=== PATIENT | male | born 1960 | race Caucasian/White ===

== ENCOUNTER 2025-01-01 12:56 | Day surgery (SDC) | payer MEDICARE ==
[2024-12-31 10:45] VITALS: BMI 21.1
[~2025-01-01 12:56] MED LIST: DEXAMETHASONE SOD PHOSPHATE 4 MG/ML 1 ML VIAL IV ONE; HYDROmorphone 0.5 MG/0.5 ML SYRINGE IVP PRN; LACTATED RINGERS 1,000 ML IV SCH; LIDOCAINE 1% (10MG/ML) FOR IV START INTRADERMA PRN; MIDAZOLAM 2 MG/2 ML VIAL IV PRN; ONDANSETRON 4 MG/2 ML VIAL IVP ONE; fentaNYL (PF) 50 MCG/ML 2 ML AMP IVP PRN
--- NOTE | 2025-01-01 13:37 | CT ---
EXAMINATION TYPE: CT Chest wo ION protocol DATE OF EXAM: 01/01/2025 COMPARISON: PET CT fusion dated 12/11/2024 CLINICAL INDICATION: Male, 64 years old with history of ion bronchoscopy; PHH, pre bronchial navigati on TECHNIQUE: CT scan of the thorax is performed without IV contrast. CT DLP: 757.[address] CTDI: mGy Automated exposure control for dose reduction was used. FINDINGS: There is a 2.4 x 1.8 cm spiculated mass in the left upper lobe which showed abnormal uptake on the pr ior PET scan. There is a 1.2 cm nodule in the left lower lobe which did not show increased uptake on the prior exam. It does have a spiculated margin. There is a 5.6 mm groundglass nodule in the right upper lobe laterally. There are moderate emphysematous changes. There is no airspace consolidation. There is no pleural effusion or pneumothorax. There is no mediastinal or axillary adenopathy. Possibility of right hilar adenopathy cannot be exclu ded with this technique. Limited scanning through the upper abdomen reveals no gross abnormality. There is postsurgical change of fusion in the lower thoracic and upper lumbar spine. There are no foc al osseous lesions. IMPRESSION: 1. 2.4 x 1.8 cm spiculated mass in the left upper lobe highly suspicious for malignancy. Second 1.2 c m nodule in left lower lobe which is not show increased uptake on the prior PET scan dated 12/11/2024 2. No acute cardiopulmonary disease. 3. No axillary or mediastinal adenopathy. Hilar adenopathy cannot be excluded with this technique. 4. No pleural effusion or pneumothorax. [facility], , 01/01/2025 1:35 PM
[2025-01-01] MEDS: LACTATED RINGERS 1,000 ML IV SCH (13:49)
[2025-01-01] MEDS: IV FLUID CONTINUATION 1,000 ML IV ONE (13:50)
[2025-01-01] MEDS ORDERED: fentaNYL (PF) 50 MCG/ML 2 ML AMP ONE (14:10)
[2025-01-01] MEDS ORDERED: GLYCOPYRROLATE 0.2 MG/ML 2 ML VIAL ONE (14:10)
[2025-01-01] MEDS ORDERED: MIDAZOLAM 2 MG/2 ML VIAL ONE (14:10)
[2025-01-01] MEDS ORDERED: SUCCINYLCHOLINE CHLORIDE 200 MG/10 ML VIAL IV ONE (14:10)
[2025-01-01] MEDS ORDERED: ROCURONIUM 10 MG/ML (5 ML VIAL) IV ONE (14:10)
[2025-01-01] MEDS ORDERED: PROPOFOL 10 MG/ML 20 ML VIAL IV ONE (14:10)
[2025-01-01] MEDS ORDERED: NEOSTIGMINE 1 MG/ML 10 ML VIAL ONE (14:10)
[2025-01-01] MEDS ORDERED: LIDOCAINE 1% INJ 10MG/ML (20 ML MDV) ONE (14:10)
[2025-01-01 16:04] VITALS: TEMP 97.1
--- NOTE | 2025-01-01 16:05 | P.PCN ---
Date of Procedure: 01/01/25 Operative Findings: Operative Findings: Preoperative Diagnosis: Left upper lobe pulmonary nodule (2.4x1.8 cm) Postoperative Diagnosis: Left upper lobe pulmonary nodule Mediastinal lymphadenopathy Procedure(s) Performed: Flexible bronchoscopy Robotic-assisted bronchoscopy and addition to radial ultrasound evaluation of the left upper lobe pulmonary mass, 24 mm Robotic-assisted transbronchial needle aspirate, transbronchial biopsies of the left upper lobe pulmonary nodule in addition to a bronchioloalveolar lavage Endobronchial ultrasound TBNA of station 10L and station 7 lymph nodes Anesthesia: BRENDAA Surgeon: Jose Preston Estimated Blood Loss (ml): 0 Pathology: other Condition: stable Disposition: same day Operative Findings: A physical exam was performed. Informed consent was obtained from the patient after explaining all the risks (pneumothorax, life threatening bleeding, infection and adverse effects due to medications), benefits and alternatives to the procedure which the patient appeared to understand and so stated. The patient was connected to the monitoring devices. General anesthesia was induced and the patient was intubated by anesthesia. A final timeout was performed and t he procedure confirmed by the attending staff bronchoscopist. The bronchoscope was inserted and the airway examined. The flexible bronchoscope was removed and the robotic bronchoscope was inserted. Registration was completed. I next guided the robotic bronchoscope using the navigation system into the left upper lobe lingular segment . Once in proper position, the bronchoscope was frozen. The radial EBUS probe was placed through the bronchoscope and confirmed abnormal u/s images vs normal lung. A 23 gauge needle was placed through the working channel and under fluoroscopic guidance, we sampled the area thought to have the mass twice. The samples were evaluated by pathology and rapid on site evaluation was done and the samples were found to be adequate. We then used a cloud biopsy pattern with ultrasound confirmation for 4 additional passes with the needle. U/S evaluation was then used to reconfirm location. Forceps were next introduced through working channel and extended the appropriate distance and 2 transbronchial biopsies were performed using fluoroscopic guidance. The u/s probe was then reinserted to confirm location. When confirmed this process was repeated for a total of 8 transbronchial biopsies. 40 ml of saline was then instilled into the area of the lesion. 10 ml of effluent from the BAL was collected. The aspirate was bloody and ultimately declotted and based on that, the sample was discarded. The robotic bronchoscope was removed and endobronchial ultrasound was inserted. Careful examination of the greatest mediastinal stations showed a 1.2 cm left hilar lymph node, station 10L and 9 mm subcarinal lymph node, station 7. Using a 22-gauge Vizishot needle, transbronchial needle aspirate of station 10L lymph node was done, a total of 5 passes and station 7 was done a total of 3 passes. The rest of the mediastinal stations were free of any pathologic lymphadenopathy. Flex. bronchoscope was inserted and regular suctioning was done. At the completion of the procedure, no residual secretions or bloody material within the airway. The bronchoscope was removed. The patient was extubated. FINDINGS: 1.The airways appeared normal 2 Successful navigation, ultrasonographic identification, and biopsies of left upper lobe pulmonary mass 3.The the radial ultrasound view was concentric RECOMMENDATIONS: Await pathology and cytology results The referring physician will be alerted to the results when available. The patient was advised to follow up with the referring physician with the biopsy results Patient will be called with results.
[2025-01-01 16:32] VITALS: RESP 17
--- NOTE | 2025-01-01 16:51 | XR ---
EXAMINATION TYPE: XR chest 1V DATE OF EXAM: 01/01/2025 4:22 PM COMPARISON: None. CLINICAL INDICATION: Male, 64 years old with history of post bx, TECHNIQUE: XR chest 1V view(s) obtained. FINDINGS: The heart size is normal. The pulmonary vasculature is normal. Streak opacities are within the mid and lower left lung. Correlate for plate atelectasis. Follow-up r ecommended. No pneumothorax is evident. IMPRESSION: 1. Platelike atelectasis left lung. Follow-up recommended 2. No pneumothorax post bronchoscopy [facility], , 01/01/2025 4:49 PM
[2025-01-01 16:58] VITALS: BP 180/97; PULSE 63
--- NOTE | 2025-01-02 05:48 | FL ---
EXAMINATION TYPE: FL bronchoscopy DATE OF EXAM: 01/01/2025 CLINICAL HISTORY: Lung lesion TECHNIQUE: Fluoroscopy. COMPARISON: None. FINDINGS: Fluoroscopic guidance was provided during bronchoscopy procedure performed by Dr. Preston . A total of 59 seconds of fluoroscopic time was utilized during the procedure and 2 spot images was acquired. Images show advancement for tissue sampling into the left lung. TOTAL DAP = 2.0484 Gycm2 IMPRESSION: As Above. [facility], Workstation: [facility], 01/02/2025 5:45 AM
== END 2025-01-01 17:15 | disposition home or self-care (01) ==
LOC: ORWHC2ENDO 12:56
PROVIDERS: ATTEND Internal Medicine Critical Care Medicine
DX: C34.12 Malignant neoplasm of upper lobe, left bronchus or lung (principal); J44.9 Chronic obstructive pulmonary disease, unspecified; R59.0 Localized enlarged lymph nodes; I10 Essential (primary) hypertension; E78.5 Hyperlipidemia, unspecified; M54.50 Low back pain, unspecified; F90.9 Attention-deficit hyperactivity disorder, unspecified type; Z87.891 Personal history of nicotine dependence; Z88.0 Allergy status to penicillin; Z79.51 Long term (current) use of inhaled steroids; Z79.899 Other long term (current) drug therapy
CPT/HCPCS: 88108; 88305; 88173; 87070; 87205; 71045; 71250; 31628; 31629; 31624; 31652; J2250; J0330; J2710; J2003; J3010; J2704; J1596; S2900

== ENCOUNTER → 2025-02-06 | Outpatient (CLI) | payer MEDICARE ==
[2025-02-06 13:55] LABS: INR 0.9 (<1.2); Partial Thromboplastin Time 23.9 sec (22.0-30.0); Prothrombin Time 9.9 sec (10.0-12.5)
[2025-02-06 18:09] LABS: Basophils # (A) 0.06 X 10*3/uL (0.00-0.10); Basophils % (A) 0.7 %; Eosinophils # (A) 0.13 X 10*3/uL (0.04-0.35); Eosinophils % (A) 1.6 %; HCT 44.6 % (39.6-50.0); HGB 14.6 g/dL (13.0-17.0); Lymphocytes # (A) 2.43 X 10*3/uL (0.90-5.00); Lymphocytes % (A) 29.2 %; MCHC 32.7 g/dL (32.0-37.0); MCV 94.7 FL (80.0-97.0); Mean Platelet Volume 9.4 FL (9.5-12.2); Monocytes # (A) 0.61 X 10*3/uL (0.20-1.00); Monocytes % (A) 7.3 %; NRBC Per 100 WBC 0 X 10*3/uL (0.00-0.01); Neutrophils # (A) 5.05 X 10*3/uL (1.80-7.70); Neutrophils % (A) 60.6 %; Platelet Count 501 X 10*3/uL (140-440); RBC 4.71 X 10*6/uL (4.40-5.60); RDW 12.5 % (11.5-14.5); WBC 8.33 X 10*3/uL (4.50-10.00)
[2025-02-06 18:23] LABS: Blood Urea Nitrogen 17.4 mg/dL (9.0-27.0); Carbon Dioxide 29.5 mmol/L (21.6-31.8); Chloride 99 mmol/L (96-109); Glucose 91 mg/dL (70-110); Potassium 4.7 mmol/L (3.5-5.5); Sodium 138 mmol/L (135-145)
[2025-02-06 18:30] LABS: Appearance,Urine Clear (Clear); Bilirubin,Urine Negative (Negative); Blood,Urine Negative (Negative); Color,Urine Yellow (Yellow); Ketones,Urine Negative (Negative); Nitrite,Urine Negative (Negative); Specific Gravity,Urine 1.016 (1.001-1.030); Urobilinogen,Urine 0.2 E.U./DL
[2025-02-06 18:44] LABS: Bacteria,Urine 3+ (None Seen)
== END | disposition home or self-care (01) ==
LOC: LABPAT 12:50
PROVIDERS: ATTEND Thoracic Surgery (Cardiothoracic Vascular Surgery)
DX: Z01.818 Encounter for other preprocedural examination (principal); C34.90 Malignant neoplasm of unspecified part of unspecified bronchus or lung
CPT/HCPCS: 80051; 81001; 82565; 82947; 84520; 85025; 85610; 85730; 86850; 86900; 86901; 87077; 87086; 87186; 93005

== ENCOUNTER 2025-02-12 09:48 | Inpatient (IN) | payer MEDICARE ==
[2025-02-12] MEDS ORDERED: HYDROmorphone 0.5 MG/0.5 ML SYRINGE IVP PRN (10:04)
[2025-02-12] MEDS ORDERED: droPERidol 2.5 MG/ML VIAL IVP PRN (10:04)
[2025-02-12] MEDS ORDERED: LIDOCAINE 1% (10MG/ML) FOR IV START INTRADERMA PRN (10:04)
[2025-02-12] MEDS: IV FLUID CONTINUATION 1,000 ML IV ONE ×2 (10:40)
[2025-02-12] MEDS: ONDANSETRON 4 MG/2 ML VIAL IVP ONE ×2 (10:48→18:15)
[2025-02-12] MEDS: DEXAMETHASONE SOD PHOSPHATE 4 MG/ML 1 ML VIAL IV ONE ×2 (10:48→18:15)
[2025-02-12] MEDS: LACTATED RINGERS 1,000 ML IV SCH ×2 (10:49)
[2025-02-12] MEDS: MIDAZOLAM 2 MG/2 ML VIAL IV ONE (11:08)
[2025-02-12] MEDS ORDERED: fentaNYL (PF) 50 MCG/ML 2 ML AMP ONE (14:46)
[2025-02-12] MEDS ORDERED: NEOSTIGMINE 1 MG/ML 10 ML VIAL ONE (14:46)
[2025-02-12] MEDS ORDERED: HYDROmorphone (PF) 1 MG/ML ONE (14:46)
[2025-02-12] MEDS ORDERED: SODIUM CHLORIDE 0.9% (PF) 10 ML VIAL ONE (14:46)
[2025-02-12] MEDS ORDERED: ROCURONIUM 10 MG/ML (5 ML VIAL) IV ONE (14:46)
[2025-02-12] MEDS ORDERED: DEXAMETHASONE SOD PHOSPHATE 4 MG/ML 1 ML VIAL ONE (14:46)
[2025-02-12] MEDS ORDERED: ROPIVACAINE 5 MG/ML 30 ML VIAL ONE (14:46)
[2025-02-12] MEDS ORDERED: ACETAMINOPHEN IV (For NPO) 1,000 MG/100 ML VIAL ONE (14:46)
[2025-02-12] MEDS ORDERED: KETAMINE HCL IN 0.9 % NACL 50 MG/5 ML SYRINGE ONE (14:46)
[2025-02-12] MEDS ORDERED: LIDOCAINE 4% LTA KIT (4 ML) TOPICAL ONE (14:46)
[2025-02-12] MEDS ORDERED: SUCCINYLCHOLINE CHLORIDE 200 MG/10 ML VIAL IV ONE (14:46)
[2025-02-12] MEDS ORDERED: PROPOFOL 10 MG/ML 20 ML VIAL IV ONE (14:46)
[2025-02-12] MEDS ORDERED: GLYCOPYRROLATE 0.2 MG/ML 2 ML VIAL ONE (14:46)
[2025-02-12] MEDS ORDERED: LIDOCAINE 1% INJ 10MG/ML (20 ML MDV) ONE (14:46)
[2025-02-12] MEDS ORDERED: MIDAZOLAM 2 MG/2 ML VIAL ONE (14:46)
[2025-02-12] MEDS: ceFAZolin 2 GM in DEXTROSE 5% IN WATER 50 ML IVPB PRN (14:51)
[2025-02-12] MEDS ORDERED: NALOXONE 0.4 MG/ML 1 ML VIAL IV PRN (17:37)
--- NOTE | 2025-02-12 18:24 | P.OP ---
Date of Procedure: 02/12/25 Preoperative Diagnosis: Lung CA AYANNA Postoperative Diagnosis: Same Procedure(s) Performed: Video thoracoscopy, left thoracotomy, lysis of pleural adhesions, left upper lobectomy, mediastinal lymph node dissection, cryoablation left intercostal nerves. Implants: 0 Anesthesia: BRENDAA Surgeon: Rajat Umanzor Estimated Blood Loss (ml): 75 Pathology: other (Left upper lobe with frozen section bronchial margin negative; lymph node stations; L5, L6, L8, L10, L11, level 7) Condition: stable Disposition: PACU Indications for Procedure: 64-year-old male with newly discovered biopsy-proven carcinoma left upper lobe. Mediastinal staging with EBUS was negative. PET scan was negative for local or distant metastasis. CT of the head was negative. Patient was referred for surgical resection for clinical stage I adenocarcinoma of the lung. Minimally invasive approach was planned. Operative Findings: I am placing the thoracoscope, was immediately evident that there were diffuse adhesions in the pleural space. Gentle attempts were made to take these down bluntly and they were unsuccessful. Given the extent of the adhesions it was felt most efficacious to open the chest. On opening the chest, there were indeed diffuse adhesions throughout the pleural cavity. These were very dense and general had to be taken down sharply. We were able to completely take down the adhesions within the pleural space. The fissures were also fairly densely adherent. These were taken down partially. There was diffuse anthracotic adenopathy in the hilum and mediastinum. None of this grossly appeared metastatic. There was a approximately 3 cm mass present in the left upper lobe. This was distant from the hilum. There is also distant from the parietal pleura. On completion of the lobectomy, there was no evidence of significant ai r leak. The lung appeared to inflate well. Description of Procedure: Patient was brought to the operating room and placed supine on the operating table. General anesthesia was induced. He was intubated with a double-lumen endotracheal tube. This was positioned with fiberoptic bronchoscopy. There was no evidence of endobronchial lesions. Patient was turned in the right lateral decubitus position. The left chest was sterilely prepped and draped and he was appropriately positioned. Initial incision was made in the ninth interspace in the midaxillary line. On placing the scope dense adhesions were encountered. These did not appear to want a come down bluntly in any shape or form. It was decided to proceed directly to the thoracotomy. Scope was removed. Posterior lateral thoracotomy incision was performed. Latissimus muscle was divided. The serratus muscle was mobilized and retracted anteriorly. Chest was entered in the fifth interspace. There were indeed dense adhesions. These had to be taken down sharply with either scissors or Bovie for the most part. Once we had enough of the lung freed by a 2 P8 retractor was placed. The intercostals were undercut anteriorly and posteriorly to allow better spreading of the ribs. We continued to mobilize the adhesions until we had the lung completely freed. Remarkably we did not have any significant lung tears. If fissures were also adherent. This was taken down partially but was very dense. The inferior pulmonary ligament was mobilized and divided. We began dissection in the hilum. We first dissected out the superior pulmonary vein, encircled it and ligated and divided it with a Endo SABIHA vascular stapler. Carried dissection onto the bronchus and the pulmonary artery identifying the structures and developing them somewhat. Dissection in the hilum was very difficult due to dense adhesions. We now directed our attention posteriorly. We resected some enlarged L8 lymph nodes. We dissected out the L10 lymph nodes from between the mainstem pulmonary bronchus and the pulmonary artery. Dissection was carried onto the pulmonary artery. 3 superior branches were taken down and ligated and divided with multiple firings of Endo SABIHA vascular stapler. Dissection was carried onto the bronchus. Lymph node between the upper lobe and lower lobe bronchus was resected and sent as L11 lymph node. We are able to encircle the upper lobe bronchus and ligated and divided with a Endo SABIHA stapler. We now could visualize multiple branches of the pulmonary artery leading to the lingula. These were encircled and ligated and divided with a single firing of Endo SABIHA vascular stapler. We now completed the fissures with multiple firings of Endo SABIHA thick stapler. Lobectomy specimen was sent for frozen section and returned negative for the bronchial margin. We completed the lymph node dissection with resection of the L5, L6 and level 7 lymph nodes. Cryoablation of the 3rd, 4th, 5th, 6th and 7th intercostal nerves was performed posteriorly with the Endo ice AtriCure cryoprobe. Chest was irrigated with warm water. No bleeding was noted. Lung was inflated under water and no significant air leaks were identified. 28 Irish chest tube was placed through the initial thoracoscopy incision and positioned posterior apically and secured with 0 Ethibond suture. Ribs were reapproximated with #1 Vicryl suture. The muscle layers were closed with 0 Vicryl. Subcutaneous layers were closed with 2-0 Vicryl. Skin was closed with skin clips. Dry sterile dressings were applied and the patient was extubated and transferred to recovery in stable condition.
[2025-02-12] MEDS: HYDROmorphone 0.5 MG/0.5 ML SYRINGE IVP PRN (18:37)
[2025-02-12] MEDS ORDERED: Potassium Replacement Protocol 1 EACH MISC MISCELLANE PRN (18:43)
[2025-02-12] MEDS ORDERED: Magnesium Replacement Protocol 1 EACH MISC MISCELLANE PRN (18:43)
[2025-02-12] MEDS ORDERED: bisacodyL 10 MG SUPP RECTAL PRN (18:43)
--- NOTE | 2025-02-12 19:11 | XR ---
EXAMINATION TYPE: XR chest 1V portable DATE OF EXAM: 02/12/2025 6:54 PM COMPARISON: Chest radiographs from 01/01/2025. CLINICAL INDICATION: Male, 64 years old with history of post lobectomy; [facility] TECHNIQUE: XR chest 1V portable Frontal view of the chest. FINDINGS: Lungs/Pleura: There is no evidence of pleural effusion, focal consolidation, or pneumothorax. Pulmonary vascularity: Unremarkable. Heart/mediastinum: Cardiomediastinal silhouette is unremarkable. Musculoskeletal: No acute osseous pathology. There is fixation hardware in the lower cervical spine. Other findings: Skin cassandra over the left lateral chest wall. Few scattered subcutaneous emphysema f oci of lucency present. Lines/Tubes: Left thoracotomy tube is present with evidence of small pneumothorax. IMPRESSION: Left thoracotomy tube with left pneumothorax. [facility], , 02/12/2025 7:09 PM
[2025-02-12] MEDS: IPRATROPIUM-ALBUTEROL 3 ML NEB IH SCH (19:34)
[2025-02-12] MEDS: BUDESONIDE 0.5 MG/2 ML NEBU INHALATION SCH (19:34)
[2025-02-12] MEDS: ROPIVACAINE 250 MG, HYDROMORPHONE (PF) 5 MG in SODIUM CHLORIDE 0.9% 200 ML EPIDURAL PRN (19:40)
[2025-02-12 19:52] LABS: Glucose,Whole Blood 166 mg/dL (70-110)
[2025-02-12] MEDS: SENNOSIDES 8.6 MG TAB PO SCH (20:26)
[2025-02-12] MEDS: MORPHINE SULFATE ER 30 MG TABLET PO SCH (20:26)
[2025-02-12] MEDS: ZIPRASIDONE 20 MG CAP PO SCH (21:17)
[2025-02-12] MEDS: DEXTROSE 5%-0.45% NACL 1,000 ML IV SCH (21:17)
[2025-02-12] MEDS: MORPHINE SULFATE 4 MG/ML SYRINGE IVP PRN (21:32)
[2025-02-12] MEDS: ONDANSETRON 4 MG/2 ML VIAL IVP PRN (21:32)
[2025-02-12] MEDS: traMADol 50 MG TAB PO PRN (22:37)
[2025-02-12] MEDS: KETOROLAC 15 MG/ML 1 ML VIAL IVP STA (22:37)
[2025-02-13] MEDS ORDERED: HEPARIN SODIUM,PORCINE 5,000 UNIT/ML 1 ML VIAL SQ SCH
[2025-02-13] MEDS: HEPARIN SODIUM,PORCINE 5,000 UNIT/ML 1 ML VIAL SQ SCH (00:20)
[2025-02-13] MEDS: ceFAZolin 2 GM in DEXTROSE 5% IN WATER 50 ML IVPB SCH (00:36)
[2025-02-13 03:35] LABS: Basophils # (A) 0.02 10*3/uL (0.00-0.10); Basophils % (A) 0.1 %; HCT 37.8 % (39.6-50.0); HGB 12.4 g/dL (13.0-17.0); Lymphocytes # (A) 1.31 10*3/uL (0.90-5.00); MCH 31.4 pg (27.0-32.0); MCHC 32.8 g/dL (32.0-37.0); MCV 95.7 fL (80.0-97.0); Mean Platelet Volume 9.4 fL (9.5-12.2); Monocytes # (A) 1.28 10*3/uL (0.20-1.00); Monocytes % (A) 8.8 %; Neutrophils # (A) 11.95 10*3/uL (1.80-7.70); Neutrophils % (A) 81.7 %; Platelet Count 355 10*3/uL (140-440); RBC 3.95 10*6/uL (4.40-5.60); RDW 13.1 % (11.5-14.5); WBC 14.62 10*3/uL (4.50-10.00)
[2025-02-13 05:29] LABS: Glucose,Whole Blood 132 mg/dL (70-110)
[2025-02-13 05:59] LABS: ALT 16 U/L (4-49); AST 25 U/L (17-59); African American GFR (CKD) >90 (>60 ml/min/1.73 sqM); Albumin 3.2 g/dL (3.5-5.0); Alkaline Phosphatase 59 U/L (38-126); Anion Gap 7 mmol/L; Blood Urea Nitrogen 20 mg/dL (9-20); Calcium 8.8 mg/dL (8.4-10.2); Carbon Dioxide 26 mmol/L (22-30); Chloride 98 mmol/L (98-107); Glucose 122 mg/dL (74-99); Non-African American GFR(CKD) >90 (>60 ml/min/1.73 sqM); Potassium 4.5 mmol/L (3.5-5.1); Sodium 131 mmol/L (137-145); Total Bilirubin 0.5 mg/dL (0.2-1.3); Total Protein 5.7 g/dL (6.3-8.2)
[2025-02-13] MEDS: PANTOPRAZOLE 40 MG TABLET PO SCH (06:09)
--- NOTE | 2025-02-13 07:04 | P.ANPRN ---
Procedure Note - Anesthesia - Nerve Block Performed Left Erector Spinae Single Time Out Performed: Yes Date of Procedure: 02/12/25 Procedure Start Time: : Procedure Stop Time: :04 Location of Patient: PreOp Indication: Acute Post-Operative Pain, Requested by Surgeon Sedation Type: Sedate with meaningful contact maintained Preparation: Sterile Prep Position: Sitting Needle Types: Pajunk Needle Gauge: 21 Ultrasound used to visualize needle placement: Yes Ultrasound used to observe medication spread: Yes Blood Aspirated: No Pain Paresthesia on Injection Noted: No Resistance on Injection: Normal Image Stored and Saved: Yes Events: Uneventful and Well Tolerated (Ropivacaine 0.5% 15 cc plus normal saline 10 cc plus dexamethasone 4 mg given at t5 on the left side)
--- NOTE | 2025-02-13 07:06 | P.ANPRN ---
Procedure Note - Anesthesia - Invasive Line Left Arterial Line Time Out Performed: Yes Date of Procedure: 02/12/25 Time of Procedure: 10:55 Location of Patient: PreOp Preparation: Sterile Prep, Sterile Dressing Arterial Line Location: Radial Ultrasound Used: No Purpose - Visualization and Identification of Vasculature: No Image Stored and Saved: No Narrative: Invasive line placement per sterile protocol utilized.
--- NOTE | 2025-02-13 07:08 | P.ANPRN ---
Procedure Note - Anesthesia - Epidural/Spinal Epidural Continuous Time Out Performed: Yes Date of Procedure: 02/12/25 Procedure Start Time: 19:10 Procedure Stop Time: 19:20 Location of Patient: Phase I Indication: Acute Post-Operative Pain, Requested by Surgeon Sedation Type: Sedate with meaningful contact maintained Preparation: Sterile Prep Position: Sitting Catheter: Indwelling Needle Guage: 18 Blood Aspirated: No Pain Paresthesia on Injection Noted: No Events: Other (see comment) (Xylocaine 1.5% plus epi given as a test dose, no adverse side effect noted)
[2025-02-13] MEDS ORDERED: traMADol 50 MG TAB PO PRN (07:09)
--- NOTE | 2025-02-13 07:36 | P.PN ---
Progress Note - Text 02/13/25 721am 64-year-old male status post open thoracotomy. Patient has a thoracic epidural catheter catheter with a solution running at 6 cc an hour. Patient is complaining of a VAS of 4-5. I asked the nurse to increase the rate to 8 cc an hour. He is also getting IV morphine for breakthrough pain
--- NOTE | 2025-02-13 07:51 | XR ---
EXAMINATION TYPE: XR chest 1V DATE OF EXAM: 02/13/2025 5:19 AM COMPARISON: 02/12/2025 CLINICAL INDICATION: Male, 64 years old with history of post lobectomy, pneumothorax TECHNIQUE: XR chest 1V view(s) obtained. FINDINGS: The heart size is normal. The pulmonary vasculature is normal. There is a moderately large left apical pneumothorax, increasing from comparison. Some increased infiltrates in the left lower lung field. Mild atelectasis at the right base. There is a left sided chest tube directed towards the hilum. IMPRESSION: 1. Increasing moderate to large left-sided pneumothorax. 2. Mild bibasilar atelectasis. [facility], , 02/13/2025 7:49 AM
--- NOTE | 2025-02-13 09:01 | P.PN ---
Subjective Progress Note Date: 02/13/25 Principal diagnosis: Lung cancer of the left upper lobe, biopsy proven invasive pulmonary adenocarcinoma with focal micropapillary features. History of hypertension, obstructive sleep apnea without home CPAP use, osteoarthritis, prostate disorder, back and neck surgery on chronic morphine for pain, ADHD, current tobacco dependence (patient states quit in July 2024 but daughter says still smoking), daily marijuana use POD #1 video thoracoscopy, left thoracotomy, lysis of pleural adhesions, left upper lobectomy, mediastinal lymph node dissection, cryoablation left inte rcostal nerves. The patient was seen and examined this morning sitting up in recliner in the intensive care unit in no acute distress although he does state his expected postsurgical pain is not completely controlled despite epidural, tramadol, IV morphine, as well as his home dose of oral morphine. Remains in sinus bradycardia with heart rate in the 50s, hemodynamically stable. Currently on ro om air and able to achieve 2500 mL on incentive spirometry. Left pleural chest tube remains present to continuous wall suction, continuous airleak present. Chest x-ray, labs reviewed. There is noted to be moderate left-sided pneumothorax on chest x-ray, expected given lobectomy. No other new concerns. Objective - Vital Signs Vital signs: Vital Signs Temp 97.5 F L 02/13/25 08:00 Pulse 61 02/13/25 08:00 Resp 16 02/13/25 08:00 BP 127/93 02/13/25 06:00 Pulse Ox 95 02/13/25 08:00 FiO2 Intake & Output 02/12/25 02/13/25 02/13/25 18:59 06:59 18:59 Intake Total 2049 686 76 Output Total 675 1120 110 Balance 1375 -434 -34 Weight 116.2 kg 115.2 kg Intake: IV 2049 686 3 0.9 saline art line 36 3 pressure bag Dextrose 5%-0.45% NaCl 1, 600 000 ml @ 50 mls/hr IV . Q20H [facility], [facility] Rx#:[id number] ceFAZolin 2 gm In 50 Dextrose 5% in Water 50 ml @ 100 mls/hr IVPB ONCE PRN Rx#:[id number] Intake, IV Titration 73 Amount Ropivacaine 250 mg 73 Hydromorphone (Pf) 5 mg In Sodium Chloride 0.9% 200 ml @ Per Protocol EPIDURAL .Q0M PRN Rx#: [id number] Output: Drainage 460 90 Left Chest 460 90 Urine 600 660 20 Estimated Blood Loss 75 Other: Voiding Method Indwelling Catheter ABP, PAP, CO, CI - Last Documented Arterial Blood Pressure 141/66 - Exam CONSTITUTIONAL: Appears somewhat comfortable, cooperative, no acute distress RESPIRATORY: Lungs sounds diminished bilaterally, left greater than right with expiratory wheezes heard on the left. Respirations even, nonlabored. Currently on room air with oxygen saturation 94%. Able to achieve 2500 mL on incentive spirometry. Weak cough. CARDIOVASCULAR: S1, S2 present. Regular rate and rhythm, sinus bradycardia on telemetry. Palpable peripheral pulses bilaterally. No edema present. No calf pain or tenderness noted. SCDs present. GASTROINTESTINAL: Abdomen soft, nontender, nondistended. Active bowel sounds present 4 quadrants. Tolerating diet. GENITOURINARY: Neely present draining clear, yellow urine. Output 30 to 100 mL/h overnight INTEGUMENTARY: Skin is warm and dry with evidence of good perfusion. Thoracic incision well approximated and covered with dry intact dressing. NEUROLOGIC: Cranial nerves II through XII intact MUSKULOSKELETAL: Able to move all extremities, strength equal bilaterally, gait normal PSYCHIATRIC: Alert and oriented to person place and time, appropriate affect, intact judgment and insight INVASIVE LINES AND TUBES: Left pleural chest tubes present and connected to wall suction, continuous leak present, 335 mL serosanguineous drainage overnight, 650 mL since surgery - Allied health notes Allied health notes reviewed: nursing - Labs CBC & Chem 7: 02/13/25 03:16 02/13/25 05:25 Labs: Abnormal Lab Results - Last 24 Hours (Table) 02/12/25 02/13/25 02/13/25 Range/Units 19:50 03:16 05:25 WBC 14.62 H (4.50-10.00) 10*3/uL RBC 3.95 L (4.40-5.60) 10*6/uL Hgb 12.4 L (13.0-17.0) g/dL Hct 37.8 L (39.6-50.0) % MPV 9.4 L (9.5-12.2) fL Immature Gran # 0.06 H (0.00-0.04) 10*3/uL Neutrophils # 11.95 H (1.80-7.70) 10*3/uL Monocytes # 1.28 H (0.20-1.00) 10*3/uL Eosinophils # 0.00 L (0.04-0.35) 10*3/uL Sodium 131 L (137-145) mmol/L Glucose 122 H (74-99) mg/dL POC Glucose (mg/dL) 166 H (70-110) mg/dL Total Protein 5.7 L (6.3-8.2) g/dL Albumin 3.2 L (3.5-5.0) g/dL 02/13/25 Range/Units 05:27 WBC (4.50-10.00) 10*3/uL RBC (4.40-5.60) 10*6/uL Hgb (13.0-17.0) g/dL Hct (39.6-50.0) % MPV (9.5-12.2) fL Immature Gran # (0.00-0.04) 10*3/uL Neutrophils # (1.80-7.70) 10*3/uL Monocytes # (0.20-1.00) 10*3/uL Eosinophils # (0.04-0.35) 10*3/uL Sodium (137-145) mmol/L Glucose (74-99) mg/dL POC Glucose (mg/dL) 132 H (70-110) mg/dL Total Protein (6.3-8.2) g/dL Albumin (3.5-5.0) g/dL - Imaging and Cardiology Chest x-ray: report reviewed, image reviewed Assessment and Plan Assessment: Lung cancer of the left upper lobe, biopsy proven invasive pulmonary adenocarcinoma with focal micropapillary features, status post video thoracoscopy, left thoracotomy, lysis of pleural adhesions, left upper lobectomy, mediastinal lymph node dissection, cryoablation left intercostal nerves. History of hypertension Obstructive sleep apnea without home CPAP use Osteoarthritis Prostate disorder Back and neck surgery on chronic morphine for pain for 18 years ADHD Current tobacco dependence (patient states quit in July 2024 but daughter says still smoking) Daily marijuana use Plan: Continue current medication regimen Encourage incentive spirometry use 10 times every hour while awake, bronchodilators per pulmonology Will monitor daily labs and x-rays, electrolyte replacement per protocol Hep-Lock IV GI/DVT prophylaxis Continue left pleural chest tube to continuous wall suction, monitor for airleak resolution Pain control per current medication regimen, epidural dose increased by anesthesiology, Toradol added Increase activity, ambulate as tolerated Continue Neely catheter while epidural in place Await final pathology More recommendations to follow
[2025-02-13] MEDS: MORPHINE SULFATE ER 60 MG TABLET PO SCH (09:47)
[2025-02-13] MEDS: SENNOSIDES-DOCUSATE SODIUM 1 EACH TAB PO SCH (09:47)
[2025-02-13] MEDS: METOPROLOL SUCCINATE (ER) 50 MG TAB.ER.24H PO SCH (09:47)
[2025-02-13] MEDS: PATIENT'S OWN (Dextroamphetamine/Amphetamine [Adderall] 20 MG Tablet) PO SCH (09:51)
[2025-02-13] MEDS: METOCLOPRAMIDE 5 MG/ML 2 ML VIAL IVP STA (11:50)
[2025-02-13] MEDS: KETOROLAC 15 MG/ML 1 ML VIAL IVP SCH (11:51)
[2025-02-13] MEDS: methocarbamoL 500 MG TAB PO SCH (12:46)
--- NOTE | 2025-02-13 12:47 | P.CNPUL ---
History of Present Illness Consult date: 02/13/25 Requesting physician: Rajat Umanzor Reason for consult: other Chief complaint: Lung CA, status post lobectomy History of present illness: This is a 64-year-old white male, [id number] smoking history, quit smoking in July of 2024, history of chronic back pain and multiple back surgeries, patient was supposed to have cervical spine surgery, prior to the surgery, workup was done including a chest x-ray that showed a left upper lobe nodule. Patient had a CT of the chest and he was found to have a 2.9 x 2.4 cm nodule in the left upper lobe spiculated highly suspicious for bronchogenic carcinoma. There was another 0.9 x 0.7 noncalcified nodule in the left lower lobe. Patient had borderline mediastinal adenopathy but no hypermetabolic activity. Findings were clearly highly suspicious for bronchogenic carcinoma patient had a PET scan, and he underwent robotic Ion bronchoscopy and biopsy, this was done on 01/02/2025, patient was discovered to have atypical cells consistent with non- small cell lung carcinoma. Lymph node aspirations including station 10L and 7 were negative for malignancy. Hence patient was referred to Dr. Umanzor and yesterday the patient underwent Video thoracoscopy, left thoracotomy, lysis of pleural adhesions, left upper lobectomy, mediastinal lymph node dissection, cryoablation left intercostal nerves.. His immediate postoperative course was uneventful patient was admitted to the ICU and I was asked to see him on consultation. I am seeing the patient today in the ICU, he is on room air, does not seem to be in any distress, however he does have abnormal chest x-ray showing fairly large left-sided pneumothorax with chest tube in place and he has air leak. Thoracic surgery is aware of the findings on the chest x-ray and at this point not recommending any further intervention. Labs showed WBC count of 14.6 hemoglobin 12.4 electrolytes are normal renal profile is normal Review of Systems REVIEW OF SYSTEMS: CONSTITUTIONAL: Negative. EYES: Negative. ENT: Negative. CARDIAC: Negative. PULMONARY: As above. GI: Negative. GENITOURINARY: Negative. MUSCULOSKELETAL: Negative. SKIN: Negative. NEUROPSYCH: Negative. ENDOCRINE: Negative. HEMATOLOGIC: Negative. Past Medical History Past Medical History: Cancer, Hypertension, Osteoarthritis (OA), Prostate Disorder, Sleep Apnea/CPAP/BIPAP Additional Past Medical History / Comment(s): doesn't use anything for sleep apnea, new dx. lung cancer History of Any Multi-Drug Resistant Organisms: None Reported Past Surgical History: Back Surgery Additional Past Surgical History / Comment(s): neck x3, lower back fusions- m orphine for pain sice 18 years, cervical fusion in September 2024, bronchoscopy Past Anesthesia/Blood Transfusion Reactions: No Reported Reaction Additional Past Anesthesia/Blood Transfusion Reaction / Comment(s): no blood transfusions Smoking Status: Current every day smoker - Past Family History Mother Family Medical History: Cancer Additional Family Medical History / Comment(s): throat Medications and Allergies Home Medications Medication Instructions Recorded Confirmed Type Dextroamphetamine/Amphetamine 20 mg PO DAILY 12/31/24 02/10/25 History [Adderall] Morphine Sulfate [Jojo] 60 mg PO TID 12/31/24 02/10/25 History Ziprasidone [Geodon] 20 mg PO BID 12/31/24 02/10/25 History Metoprolol Succinate (ER) [Toprol 50 mg PO DAILY 02/10/25 02/10/25 History Xl] Ibuprofen [Motrin] 800 mg PO DIRECTED PRN 02/11/25 02/11/25 History Allergies Allergy/AdvReac Type Severity Reaction Status Date / Time oxytetracycline Allergy Unknown Verified 02/12/25 10:30 [From Terramycin] Penicillins AdvReac Swelling Verified 02/12/25 10:30 Physical Exam Vitals: Vital Signs Temp Pulse Pulse Resp BP BP BP 02/13/25 12:00 58 L 18 02/13/25 11:00 57 L 21 02/13/25 10:00 57 L 17 02/13/25 09:09 58 L 02/13/25 09:01 56 L 02/13/25 09:00 56 L 19 02/13/25 08:00 97.5 F L 61 16 02/13/25 07:00 59 L 18 02/13/25 06:00 56 L 20 127/93 02/13/25 05:00 59 L 19 144/96 02/13/25 04:00 97.8 F 63 18 102/87 02/13/25 03:00 67 18 126/74 02/13/25 02:00 64 17 123/80 02/13/25 01:15 63 19 127/81 02/13/25 01:00 66 16 131/80 02/13/25 00:45 64 13 131/79 02/13/25 00:30 67 21 114/77 02/13/25 00:15 64 16 125/74 02/13/25 00:00 65 18 122/77 02/12/25 23:45 66 16 134/84 02/12/25 23:30 72 14 150/93 02/12/25 23:15 74 13 160/96 02/12/25 23:00 77 14 168/105 02/12/25 22:45 76 15 170/101 02/12/25 22:30 73 13 160/104 02/12/25 22:15 74 13 196/113 02/12/25 22:00 70 15 177/113 02/12/25 21:45 76 18 179/111 02/12/25 21:30 73 17 180/112 02/12/25 21:15 55 L 23 179/103 02/12/25 21:00 65 19 191/103 02/12/25 20:45 69 14 188/102 02/12/25 20:30 66 18 158/83 02/12/25 20:20 53 L 17 158/83 02/12/25 20:10 53 L 13 158/83 02/12/25 20:00 97.8 F 51 L 21 158/83 02/12/25 19:50 24 02/12/25 19:24 47 L 16 140/59 02/12/25 19:09 47 L 16 144/75 02/12/25 18:54 48 L 16 154/66 02/12/25 18:39 47 L 16 148/60 02/12/25 18:24 97.0 F L 49 L 16 143/61 Pulse Ox 02/13/25 12:00 95 02/13/25 11:00 93 L 02/13/25 10:00 96 02/13/25 09:09 02/13/25 09:01 02/13/25 09:00 96 02/13/25 08:00 95 02/13/25 07:00 92 L 02/13/25 06:00 97 02/13/25 05:00 94 L 02/13/25 04:00 95 02/13/25 03:00 95 02/13/25 02:00 89 L 02/13/25 01:15 02/13/25 01:00 02/13/25 00:45 02/13/25 00:30 02/13/25 00:15 02/13/25 00:00 96 02/12/25 23:45 02/12/25 23:30 02/12/25 23:15 02/12/25 23:00 02/12/25 22:45 02/12/25 22:30 02/12/25 22:15 02/12/25 22:00 02/12/25 21:45 92 L 02/12/25 21:30 96 02/12/25 21:15 96 02/12/25 21:00 97 02/12/25 20:45 93 L 02/12/25 20:30 94 L 02/12/25 20:20 94 L 02/12/25 20:10 97 02/12/25 20:00 93 L 02/12/25 19:50 92 L 02/12/25 19:24 94 L 02/12/25 19:09 95 02/12/25 18:54 94 L 02/12/25 18:39 95 02/12/25 18:24 95 Intake and Output 02/12/25 02/13/25 02/13/25 22:59 06:59 14:59 Intake Total 959 527 618 Output Total 660 835 560 Balance 299 -308 58 Intake: IV 959 527 15 0.9 saline art line 9 27 15 pressure bag Dextrose 5%-0.45% NaCl 1, 150 450 000 ml @ 50 mls/hr IV . Q20H ANILA Rx#:[id number] ceFAZolin 2 gm In 50 Dextrose 5% in Water 50 ml @ 100 mls/hr IVPB ONCE PRN Rx#:[id number] Intake, IV Titration 123 Amount Ropivacaine 250 mg 73 Hydromorphone (Pf) 5 mg In Sodium Chloride 0.9% 200 ml @ Per Protocol EPIDURAL .Q0M PRN Rx#: [id number] ceFAZolin 2 gm In 50 Dextrose 5% in Water 50 ml @ 100 mls/hr IVPB Q8H ANILA Rx#:[id number] Oral 480 Output: Drainage 85 375 240 Left Chest 85 375 240 Urine 500 460 320 Estimated Blood Loss 75 Other: Voiding Method Indwelling Catheter Indwelling Catheter Weight 115.2 kg ABP, PAP, CO, CI - Last 8 Hours Arterial Blood Pressure 148/75 Arterial Blood Pressure 150/70 Arterial Blood Pressure 154/68 Arterial Blood Pressure 151/65 Arterial Blood Pressure 141/66 Arterial Blood Pressure 137/67 Arterial Blood Pressure 149/70 CONSTITUTIONAL: 64-year-old white male anxious in no distress Head: Atraumatic, normocephalic Pulmonary: Diminished breath sounds on the left side, chest tube is noted on the left side with a air leak, patient is achieving 2500 mL on incentive spirometry Cardiac: Distant S1-S2, no S3 gallop, no murmur Abdomen: Obese soft nontender no megaly no rebound no guarding Extremities: No clubbing edema or cyanosis Neurologic: Alert oriented x 3 no gross focal deficit Psychiatric: Anxious mood, normal affect normal mental status Invasive lines and tubes, patient has left pleural chest tube present with continuous leak noted, 650 mL serosanguineous drainage since surgery yesterday. Results - Laboratory Findings CBC and BMP: 02/13/25 03:16 02/13/25 05:25 Abnormal lab findings: Abnormal Labs 02/12/25 02/13/25 02/13/25 19:50 03:16 05:25 WBC 14.62 H RBC 3.95 L Hgb 12.4 L Hct 37.8 L MPV 9.4 L Immature Gran # 0.06 H Neutrophils # 11.95 H Monocytes # 1.28 H Eosinophils # 0.00 L Sodium 131 L Glucose 122 H POC Glucose (mg/dL) 166 H Total Protein 5.7 L Albumin 3.2 L 02/13/25 05:27 WBC RBC Hgb Hct MPV Immature Gran # Neutrophils # Monocytes # Eosinophils # Sodium Glucose POC Glucose (mg/dL) 132 H Total Protein Albumin - Diagnostic Findings Chest x-ray: image reviewed (As noted in HPI large left-sided pneumothorax noted with chest tube in place) Assessment and Plan Assessment: Impression: 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, status post left upper lobectomy, left thoracotomy mediastinal lymph node dissection and cryoablation of left intercostal nerves postoperative day #1 Benign essential hypertension Mild COPD Obstructive sleep apnea syndrome Degenerative joint disease Chronic back pain History of ADHD Ex-smoker Recommendation: Continue to monitor in the ICU Continue chest tube to wall suction Continue daily x-rays of the chest Continue bronchodilators Continue pain management Increase activity as tolerated Continue Neely catheter in place for now with epidural catheter in place Will continue to follow Time with Patient: Greater than 30
[2025-02-14 03:54] LABS: HCT 34.7 % (39.6-50.0); HGB 11.4 g/dL (13.0-17.0); MCH 31.3 pg (27.0-32.0); MCHC 32.9 g/dL (32.0-37.0); MCV 95.3 fL (80.0-97.0); Mean Platelet Volume 10.1 fL (9.5-12.2); Platelet Count 298 10*3/uL (140-440); RBC 3.64 10*6/uL (4.40-5.60); RDW 13.2 % (11.5-14.5); WBC 9.99 10*3/uL (4.50-10.00)
[2025-02-14 04:24] LABS: Potassium 4.1 mmol/L (3.5-5.1)
[2025-02-14 04:25] LABS: African American GFR (CKD) >90 (>60 ml/min/1.73 sqM); Anion Gap 5 mmol/L; Blood Urea Nitrogen 20 mg/dL (9-20); Calcium 8.7 mg/dL (8.4-10.2); Carbon Dioxide 26 mmol/L (22-30); Chloride 101 mmol/L (98-107); Glucose 125 mg/dL (74-99); Non-African American GFR(CKD) >90 (>60 ml/min/1.73 sqM); Sodium 132 mmol/L (137-145)
--- NOTE | 2025-02-14 07:48 | P.PN ---
Subjective Progress Note Date: 02/14/25 Principal diagnosis: Lung cancer of the left upper lobe, biopsy proven invasive pulmonary adenocarcinoma with focal micropapillary features. History of hypertension, obstructive sleep apnea without home CPAP use, osteoarthritis, prostate disorder, back and neck surgery on chronic morphine for pain, ADHD, current tobacco dependence (patient states quit in July 2024 but daughter says still smoking), daily marijuana use POD #2 video thoracoscopy, left thoracotomy, lysis of pleural adhesions, left upper lobectomy, mediastinal lymph node dissection, cryoablation left inte rcostal nerves. The patient was seen and examined this morning sitting up in recliner in the intensive care unit in no acute distress. States he feels better than yesterday although still complains of feeling like shoulder is dislocated. Remains in sinus bradycardia to sinus rhythm with heart rate in the high 50s to low 60s, hemodynamically stable. Currently on room air and able to achieve 2500 mL on incentive spirometry. Left pleural chest tube remains present to continuous wall suction, continuous airleak present. Chest x-ray, labs reviewed. There is noted to be moderate left-sided pneumothorax on chest x-ray, expected given lobectomy. He ambulated in the hallway yesterday multiple times without difficulty. No other new concerns. Objective - Vital Signs Vital signs: Vital Signs Temp 97.9 F 02/14/25 04:00 Pulse 60 02/14/25 07:00 Resp 15 02/14/25 07:00 BP 127/93 02/13/25 06:00 Pulse Ox 93 L 02/14/25 07:00 FiO2 Intake & Output 02/13/25 02/14/25 02/14/25 18:59 06:59 18:59 Intake Total 1084.533 336 Output Total 1450 1480 Balance -365.467 -1144 Weight 117.3 kg Intake: IV 33 36 0.9 saline art line 33 36 pressure bag Intake, IV Titration 211.533 Amount Ropivacaine 250 mg 161.533 Hydromorphone (Pf) 5 mg In Sodium Chloride 0.9% 200 ml @ Per Protocol EPIDURAL .Q0M PRN Rx#: [id number] ceFAZolin 2 gm In 50 Dextrose 5% in Water 50 ml @ 100 mls/hr IVPB Q8H ANILA Rx#:[id number] Oral 840 300 Output: Chest Tube Drainage 0 Chest Tube Left 0 Drainage 430 300 Left Chest 430 300 Urine 1020 1180 Other: Voiding Method Indwelling Catheter Indwelling Catheter ABP, PAP, CO, CI - Last Documented Arterial Blood Pressure 114/51 - Exam CONSTITUTIONAL: Appears comfortable, cooperative, no acute distress RESPIRATORY: Lungs sounds diminished bilaterally, left greater than right with expiratory wheezes heard on the left. Respirations even, nonlabored. Currently on room air with oxygen saturation 93%. Able to achieve 2500 mL on incentive spirometry. Weak cough. CARDIOVASCULAR: S1, S2 present. Regular rate and rhythm, sinus bradycardia on telemetry. Palpable peripheral pulses bilaterally. No edema present. No calf pain or tenderness noted. SCDs present. GASTROINTESTINAL: Abdomen soft, nontender, nondistended. Active bowel sounds present 4 quadrants. Tolerating diet. Positive flatus GENITOURINARY: Neely present draining clear, yellow urine. Output 30-100 mL/h overnight, 2200 mL in the last 24 hours INTEGUMENTARY: Skin is warm and dry with evidence of good perfusion. Thoracic incision well approximated and covered with dry intact dressing. NEUROLOGIC: Cranial nerves II through XII intact MUSKULOSKELETAL: Able to move all extremities, strength equal bilaterally, gait normal PSYCHIATRIC: Alert and oriented to person place and time, appropriate affect, intact judgment and insight INVASIVE LINES AND TUBES: Left pleural chest tubes present and connected to wall suction, continuous leak present, 185 mL serosanguineous drainage overnight, 750 mL since surgery - Allied health notes Allied health notes reviewed: nursing - Labs CBC & Chem 7: 02/14/25 03:05 02/14/25 03:05 Labs: Abnormal Lab Results - Last 24 Hours (Table) 02/14/25 02/14/25 Range/Units 03:05 03:05 RBC 3.64 L (4.40-5.60) 10*6/uL Hgb 11.4 L (13.0-17.0) g/dL Hct 34.7 L (39.6-50.0) % Sodium 132 L (137-145) mmol/L Glucose 125 H (74-99) mg/dL - Imaging and Cardiology Chest x-ray: image reviewed Assessment and Plan Assessment: Lung cancer of the left upper lobe, biopsy proven invasive pulmonary adenocarcinoma with focal micropapillary features, status post video thoracoscopy, left thoracotomy, lysis of pleural adhesions, left upper lobectomy, mediastinal lymph node dissection, cryoablation left intercostal nerves. History of hypertension Obstructive sleep apnea without home CPAP use Osteoarthritis Prostate disorder Back and neck surgery on chronic morphine for pain for 18 years ADHD Current tobacco dependence (patient states quit in July 2024 but daughter says still smoking) Daily marijuana use Plan: Continue current medication regimen Encourage incentive spirometry use 10 times every hour while awake, bronchodi lators per pulmonology Will monitor daily labs and x-rays, electrolyte replacement per protocol GI/DVT prophylaxis Left pleural chest tube placed to waterseal, will repeat x-ray in 2 hours, if similar we will leave on waterseal, if increased pneumothorax will place back to suction Pain control per current medication regimen, Toradol and Robaxin added yesterday Increase activity, ambulate as tolerated Continue Neely catheter while epidural in place Await final pathology More recommendations to follow
--- NOTE | 2025-02-14 07:58 | XR ---
EXAMINATION TYPE: XR chest 1V portable DATE OF EXAM: 02/14/2025 4:31 AM COMPARISON: 02/13/2025 CLINICAL INDICATION: Male, 64 years old with history of Post lobectomy, TECHNIQUE: XR chest 1V portable view(s) obtained. FINDINGS: The heart size is normal. The pulmonary vasculature is normal. Left apical pneumothorax evident. Sternotomy wires are present laterally. Left-sided chest tube is pr esent. There is development of a left lower lobe infiltrate. Correlate for atelectasis or pneumonia could be considered. Mild subsegmental atelectasis may be at the right base. IMPRESSION: 1. Slight diminished size of a left apical pneumothorax. 2. Developing infiltrate left infrahilar region. Correlate for atelectasis or pneumonia. [facility], , 02/14/2025 7:55 AM
[2025-02-14] MEDS: IPRATROPIUM-ALBUTEROL 3 ML NEB IH PRN (08:30)
--- NOTE | 2025-02-14 11:05 | XR ---
EXAMINATION TYPE: XR chest 1V portable DATE OF EXAM: 02/14/2025 10:32 AM COMPARISON: None. CLINICAL INDICATION: Male, 64 years old with history of re-eval off suction, TECHNIQUE: XR chest 1V portable view(s) obtained. FINDINGS: The heart size is normal. The pulmonary vasculature is normal. There is improvement of the mild atelectasis at the left lung base. There is persistence of the left apical pneumothorax. Left-sided chest tube remains present. Measuring the size of the pneumothorax, c urrent measurement to the apex is 7.7 cm, earlier exam before suction turned off for 7.1 cm. IMPRESSION: 1. Left apical pneumothorax minimally larger. 2. Improved left basilar atelectasis [facility], , 02/14/2025 11:03 AM
--- NOTE | 2025-02-14 11:40 | P.PN ---
Subjective Progress Note Date: 02/14/25 Principal diagnosis: POD #2 video thoracoscopy, left thoracotomy, lysis of pleural adhesions, left upper lobectomy, mediastinal lymph node dissection, cryoablation left intercostal nerves. This is a 64-year-old white male, [id number] smoking history, quit smoking in July of 2024, history of chronic back pain and multiple back surgeries, patient was supposed to have cervical spine surgery, prior to the surgery, workup was done including a chest x-ray that showed a left upper lobe nodule. Patient had a CT of the chest and he was found to have a 2.9 x 2.4 cm nodule in the left upper lobe spiculated highly suspicious for bronchogenic carcinoma. There was another 0.9 x 0.7 noncalcified nodule in the left lower lobe. Patient had borderline mediastinal adenopathy but no hypermetabolic activity. Findings were clearly highly suspicious for bronchogenic carcinoma patient had a PET scan, and he underwent robotic Ion bronchoscopy and biopsy, this was done on 01/02/2025, patient was discovered to have atypical cells consistent with non- small cell lung carcinoma. Lymph node aspirations including station 10L and 7 were negative for malignancy. Hence patient was referred to Dr. Umanzor and yesterday the patient underwent Video thoracoscopy, left thoracotomy, lysis of pleural adhesions, left upper lobectomy, mediastinal lymph node dissection, cryoablation left intercostal nerves.. His immediate postoperative course was uneventful patient was admitted to the ICU and I was asked to see him on consultation. I am seeing the patient today in the ICU, he is on room air, does not seem to be in any distress, however he does have abnormal chest x-ray showing fairly large left-sided pneumothorax with chest tube in place and he has air leak. Thoracic surgery is aware of the findings on the chest x-ray and at this point not recommending any further intervention. Labs showed WBC count of 14.6 hemoglobin 12.4 electrolytes are normal renal profile is normal Patient was seen today on 02/15/2024, patient remains in the ICU, doing fairly well, not in any distress, no cough no wheezing no chest pain no shortness of breath, continues to have fairly good sized left-sided pneumothorax, achieving 2500 cc on incentive spirometry, continues to have chest tube in place on wall suction today, and he does have airleak, patient has been ambulating in the hallway with out any difficulty. WBC count is 9.9 hemoglobin 11.4 electrolytes are normal renal profile is normal Objective - Vital Signs Vital signs: Vital Signs Temp 97.9 F 02/14/25 08:00 Pulse 63 02/14/25 11:00 Resp 18 02/14/25 11:00 BP 127/93 02/13/25 06:00 Pulse Ox 94 L 02/14/25 11:00 FiO2 Intake & Output 02/13/25 02/14/25 02/14/25 18:59 06:59 18:59 Intake Total 1084.533 336 15 Output Total 1450 1480 385 Balance -365.467 -1144 -370 Weight 117.3 kg Intake: IV 33 36 15 0.9 saline art line 33 36 15 pressure bag Intake, IV Titration 211.533 Amount Ropivacaine 250 mg 161.533 Hydromorphone (Pf) 5 mg In Sodium Chloride 0.9% 200 ml @ Per Protocol EPIDURAL .Q0M PRN Rx#: [id number] ceFAZolin 2 gm In 50 Dextrose 5% in Water 50 ml @ 100 mls/hr IVPB Q8H ANILA Rx#:[id number] Oral 840 300 Output: Chest Tube Drainage 0 55 Chest Tube Left 0 55 Drainage 430 300 Left Chest 430 300 Urine 1020 1180 330 Other: Voiding Method Indwelling Catheter Indwelling Catheter Indwelling Catheter ABP, PAP, CO, CI - Last Documented Arterial Blood Pressure 102/54 - Exam CONSTITUTIONAL: 64-year-old white male anxious in no distress, on room air Head: Atraumatic, normocephalic Pulmonary: Diminished breath sounds on the left side, chest tube is noted on the left side with a air leak, patient is achieving 2500 mL on incentive spirometry Cardiac: Distant S1-S2, no S3 gallop, no murmur Abdomen: Obese soft nontender no megaly no rebound no guarding Extremities: No clubbing edema or cyanosis Neurologic: Alert oriented x 3 no gross focal deficit Psychiatric: Anxious mood, normal affect normal mental status Invasive lines and tubes, patient has left pleural chest tube present with continuous leak noted - Labs CBC & Chem 7: 02/14/25 03:05 02/14/25 03:05 Labs: Abnormal Lab Results - Last 24 Hours (Table) 02/14/25 02/14/25 Range/Units 03:05 03:05 RBC 3.64 L (4.40-5.60) 10*6/uL Hgb 11.4 L (13.0-17.0) g/dL Hct 34.7 L (39.6-50.0) % Sodium 132 L (137-145) mmol/L Glucose 125 H (74-99) mg/dL Assessment and Plan Assessment: Impression: 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, status post left upper lobectomy, left thoracotomy mediastinal lymph node dissection and cryoablation of left intercostal nerves postoperative day #2 Postoperative left-sided pneumothorax, expected Benign essential hypertension Mild COPD Obstructive sleep apnea syndrome Degenerative joint disease Chronic back pain History of ADHD Ex-smoker Recommendation: Continue to monitor in the ICU Continue chest tube Continue daily x-rays of the chest Continue bronchodilators Continue pain management Increase activity as tolerated Continue to ambulate GI and DVT prophylaxis Will continue to follow Time with Patient: Less than 30
[2025-02-14] MEDS: ACETAMINOPHEN TAB 325 MG TAB PO PRN (13:32)
--- NOTE | 2025-02-14 18:20 | P.PN ---
Progress Note - Text Progress Note Date: 02/14/25 Postoperative day #2 status post thoracotomy with left upper pneumonectomy, epidural catheter placed for postoperative analgesia, patient doing well epidural site okay, patient currently on combination of epidural infusion solution of Ropivacaine 0.0625% and Dilaudid 20 g per mL the infusion rate at 8 ml per hour , patient had no motor deficit epidural site okay , vital signs stable ,VAS 4 /10 , Assessment and plan= post operative day #2 patient doing well ,pain well controlled , there is no anesthesia related complications
--- NOTE | 2025-02-15 07:09 | P.PN ---
Subjective Progress Note Date: 02/15/25 Principal diagnosis: Lung cancer of the left upper lobe, biopsy proven invasive pulmonary adenocarcinoma with focal micropapillary features. History of hypertension, obstructive sleep apnea without home CPAP use, osteoarthritis, prostate disorder, back and neck surgery on chronic morphine for pain, ADHD, current tobacco dependence (patient states quit in July 2024 but daughter says still smoking), daily marijuana use POD #3 video thoracoscopy, left thoracotomy, lysis of pleural adhesions, left upper lobectomy, mediastinal lymph node dissection, cryoablation left inte rcostal nerves. The patient was seen and examined this morning ambulating in the hallway in the intensive care unit in no acute distress. States he feels better than yesterday although still complains of feeling like shoulder is dislocated. Remains in sinus rhythm with heart rate in the low 60s, hemodynamically stable. Currently on room air and able to achieve 2500 mL on incentive spirometry. Left pleural chest tube remains present to waterseal, minimal intermittent airleak present with coughing. Chest x-ray, labs reviewed. He has ambulated in the hallway multiple times without difficulty. No other new concerns. Objective - Vital Signs Vital signs: Vital Signs Temp 97.9 F 02/15/25 04:00 Pulse 75 02/15/25 07:00 Resp 14 02/15/25 07:00 BP 127/93 02/13/25 06:00 Pulse Ox 92 L 02/15/25 07:00 FiO2 Intake & Output 02/14/25 02/15/25 02/15/25 18:59 06:59 18:59 Intake Total 1056 336 3 Output Total 1010 1300 30 Balance 46 -964 -27 Weight 116.5 kg Intake: IV 36 36 3 0.9 saline art line 36 36 3 pressure bag Oral 1020 Tube Feeding 300 Output: Chest Tube Drainage 95 210 Chest Tube Left 95 210 Urine 915 1090 30 Other: Voiding Method Indwelling Catheter Indwelling Catheter # Bowel Movements 1 ABP, PAP, CO, CI - Last Documented Arterial Blood Pressure 147/72 - Exam CONSTITUTIONAL: Appears comfortable, cooperative, no acute distress RESPIRATORY: Lungs sounds diminished bilaterally, left greater than right with expiratory wheezes heard on the left. Respirations even, nonlabored. Currently on room air with oxygen saturation 96%. Able to achieve 2500 mL on incentive spirometry. Weak cough. CARDIOVASCULAR: S1, S2 present. Regular rate and rhythm, sinus rhythm on telemetry. Palpable peripheral pulses bilaterally. No edema present. No calf pain or tenderness noted. SCDs present. GASTROINTESTINAL: Abdomen soft, nontender, nondistended. Active bowel sounds present 4 quadrants. Tolerating diet. Positive bowel movement this morning GENITOURINARY: Neely present draining clear, yellow urine. Output 30-125 mL/h overnight, 1715 mL in the last 24 hours INTEGUMENTARY: Skin is warm and dry with evidence of good perfusion. Thoracic incision well approximated and covered with dry intact dressing. NEUROLOGIC: Cranial nerves II through XII intact MUSKULOSKELETAL: Able to move all extremities, strength equal bilaterally, gait normal PSYCHIATRIC: Alert and oriented to person place and time, appropriate affect, intact judgment and insight INVASIVE LINES AND TUBES: Left pleural chest tubes present to waterseal, intermittent leak present with coughing, 20 mL serosanguineous drainage overnight, 300 mL in the last 24 hours - Allied health notes Allied health notes reviewed: nursing - Labs CBC & Chem 7: 02/14/25 03:05 02/14/25 03:05 - Imaging and Cardiology Chest x-ray: image reviewed Assessment and Plan Assessment: Lung cancer of the left upper lobe, biopsy proven invasive pulmonary adenocarcin jaya with focal micropapillary features, status post video thoracoscopy, left thoracotomy, lysis of pleural adhesions, left upper lobectomy, mediastinal lymph node dissection, cryoablation left intercostal nerves Left shoulder pain, likely from OR positioning History of hypertension Obstructive sleep apnea without home CPAP use Osteoarthritis Prostate disorder Back and neck surgery on chronic morphine for pain for 18 years ADHD Current tobacco dependence (patient states quit in July 2024 but daughter says still smoking) Daily marijuana use Plan: Continue current medication regimen Continue left pleural chest to waterseal Encourage incentive spirometry use 10 times every hour while awake, bronchodilators per pulmonology Will monitor daily labs and x-rays, electrolyte replacement per protocol. Will send patient for two-view chest x-ray tomorrow morning and dedicated left shoulder x-ray GI/DVT prophylaxis Pain control per current medication regimen, lidocaine patch added for left shoulder Increase activity, ambulate as tolerated Continue Neely catheter while epidural in place Await final pathology Keep in the ICU for another 24 hours More recommendations to follow
--- NOTE | 2025-02-15 08:05 | XR ---
EXAMINATION TYPE: XR chest 1V portable DATE OF EXAM: 02/15/2025 4:52 AM COMPARISON: None. CLINICAL INDICATION: Male, 64 years old with history of Post lobectomy, TECHNIQUE: XR chest 1V portable view(s) obtained. FINDINGS: The heart size is normal. The pulmonary vasculature is normal. Left apical pneumothorax is diminished in size from comparison. Subcutaneous air is present. Left lower lobe infiltrate is developing. Left-sided chest tube remains in position. IMPRESSION: 1. Left lower lobe infiltrate increasing from comparison. 2. Diminished left apical pneumothorax. Left-sided chest tube remains in position [facility], , 02/15/2025 8:03 AM
[2025-02-15] MEDS: LIDOCAINE 4% PATCH TOPICAL SCH (09:59)
[2025-02-15 10:08] LABS: HGB 11.7 g/dL (13.0-17.0); MCH 31.7 pg (27.0-32.0); MCHC 32.5 g/dL (32.0-37.0); MCV 97.6 fL (80.0-97.0); Platelet Count 301 10*3/uL (140-440); RBC 3.69 10*6/uL (4.40-5.60); RDW 13.4 % (11.5-14.5); WBC 9.96 10*3/uL (4.50-10.00)
[2025-02-15 10:19] LABS: African American GFR (CKD) >90 (>60 ml/min/1.73 sqM); Anion Gap 2 mmol/L; Blood Urea Nitrogen 18 mg/dL (9-20); Calcium 8.8 mg/dL (8.4-10.2); Carbon Dioxide 30 mmol/L (22-30); Chloride 100 mmol/L (98-107); Glucose 110 mg/dL (74-99); Non-African American GFR(CKD) >90 (>60 ml/min/1.73 sqM); Potassium 4.8 mmol/L (3.5-5.1); Sodium 132 mmol/L (137-145)
--- NOTE | 2025-02-15 10:41 | P.PN ---
Subjective Progress Note Date: 02/15/25 Principal diagnosis: POD #3 video thoracoscopy, left thoracotomy, lysis of pleural adhesions, left upper lobectomy, mediastinal lymph node dissection, cryoablation left intercostal nerves. This is a 64-year-old white male, [id number] smoking history, quit smoking in July of 2024, history of chronic back pain and multiple back surgeries, patient was supposed to have cervical spine surgery, prior to the surgery, workup was done including a chest x-ray that showed a left upper lobe nodule. Patient had a CT of the chest and he was found to have a 2.9 x 2.4 cm nodule in the left upper lobe spiculated highly suspicious for bronchogenic carcinoma. There was another 0.9 x 0.7 noncalcified nodule in the left lower lobe. Patient had borderline mediastinal adenopathy but no hypermetabolic activity. Findings were clearly highly suspicious for bronchogenic carcinoma patient had a PET scan, and he underwent robotic Ion bronchoscopy and biopsy, this was done on 01/02/2025, patient was discovered to have atypical cells consistent with non- small cell lung carcinoma. Lymph node aspirations including station 10L and 7 were negative for malignancy. Hence patient was referred to Dr. Umanzor and yesterday the patient underwent Video thoracoscopy, left thoracotomy, lysis of pleural adhesions, left upper lobectomy, mediastinal lymph node dissection, cryoablation left intercostal nerves.. His immediate postoperative course was uneventful patient was admitted to the ICU and I was asked to see him on consultation. I am seeing the patient today in the ICU, he is on room air, does not seem to be in any distress, however he does have abnormal chest x-ray showing fairly large left-sided pneumothorax with chest tube in place and he has air leak. Thoracic surgery is aware of the findings on the chest x-ray and at this point not recommending any further intervention. Labs showed WBC count of 14.6 hemoglobin 12.4 electrolytes are normal renal profile is normal Patient was seen today on 02/15/2024, patient remains in the ICU, doing fairly well, not in any distress, no cough no wheezing no chest pain no shortness of breath, continues to have fairly good sized left-sided pneumothorax, achieving 2500 cc on incentive spirometry, continues to have chest tube in place on wall suction today, and he does have airleak, patient has been ambulating in the hallway with out any difficulty. WBC count is 9.9 hemoglobin 11.4 electrolytes are normal renal profile is normal Patient was seen today on 02/15/2025, remains in the ICU, on room air, not in any distress, continues to have airleak from his left-sided chest tube/Pleur-evac, patient is now on waterseal, continues to have epidural catheter in place, pain is fairly well-controlled 02/12. Patient slept well last night, he is already ambulating in the room with minimal assistance. WBC count is 9.96 hemoglobin 11.7 electrolytes are normal renal profile is normal chest x-ray was reviewed continues to have left-sided pneumothorax and again there is ongoing airleak noted. Objective - Vital Signs Vital signs: Vital Signs Temp 97.8 F 02/15/25 09:00 Pulse 68 02/15/25 09:00 Resp 25 H 02/15/25 09:00 BP 127/93 02/13/25 06:00 Pulse Ox 93 L 02/15/25 09:00 FiO2 Intake & Output 02/14/25 02/15/25 02/15/25 18:59 06:59 18:59 Intake Total 1056 336 249 Output Total 1010 1300 110 Balance 46 -964 139 Weight 116.5 kg Intake: IV 36 36 9 0.9 saline art line 36 36 9 pressure bag Oral 1020 240 Tube Feeding 300 Output: Chest Tube Drainage 95 210 Chest Tube Left 95 210 Urine 915 1090 110 Other: Voiding Method Indwelling Catheter Indwelling Catheter # Bowel Movements 1 ABP, PAP, CO, CI - Last Documented Arterial Blood Pressure 119/55 - Exam CONSTITUTIONAL: 64-year-old white male in no distress, on room air Head: Atraumatic, normocephalic Pulmonary: Diminished breath sounds on the left side, chest tube is noted on the left side with air leak, patient is achieving over 2500 mL on incentive spirometry Cardiac: Distant S1-S2, no S3 gallop, no murmur Abdomen: Obese soft nontender no megaly no rebound no guarding Extremities: No clubbing edema or cyanosis Neurologic: Alert oriented x 3 no gross focal deficit Psychiatric: Normal mood, normal affect normal mental status Skin: No rashes - Labs CBC & Chem 7: 02/15/25 09:50 02/15/25 09:50 Labs: Abnormal Lab Results - Last 24 Hours (Table) 02/15/25 02/15/25 Range/Units 09:50 09:50 RBC 3.69 L (4.40-5.60) 10*6/uL Hgb 11.7 L (13.0-17.0) g/dL Hct 36.0 L (39.6-50.0) % MCV 97.6 H (80.0-97.0) fL Sodium 132 L (137-145) mmol/L Glucose 110 H (74-99) mg/dL Assessment and Plan Assessment: Impression: 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, status post left upper lobectomy, left thoracotomy mediastinal lymph node dissection and cryoablation of left intercostal nerves postoperative day #3 Postoperative left-sided pneumothorax, expected Benign essential hypertension Mild COPD Obstructive sleep apnea syndrome Degenerative joint disease Chronic back pain History of ADHD Ex-smoker Recommendation: Consider transfer to 3 S. Continue chest tube, on waterseal not ready to come out as he continues to have airleak and fairly good-sized left-sided pneumothorax Continue daily x-rays of the chest Continue bronchodilators Continue pain management, his epidural catheter may be removed today. Increase activity as tolerated Continue to ambulate GI and DVT prophylaxis Will continue to follow Time with Patient: Less than 30
--- NOTE | 2025-02-15 15:48 | P.PN ---
Progress Note - Text Progress Note Date: 02/15/25 Postoperative day #3 status post thoracotomy with left upper pneumonectomy, epidural catheter placed for postoperative analgesia, patient doing well epidural site okay, patient currently on combination of epidural infusion solution of Ropivacaine 0.0625% and Dilaudid 20 g per mL the infusion rate at 8 ml per hour , patient had no motor deficit epidural site okay , vital signs stable ,VAS 4 /10 , Assessment and plan= post operative day #3 patient doing well ,pain well controlled , there is no anesthesia related complications
[2025-02-16 05:30] LABS: HCT 30.8 % (39.6-50.0); HGB 10.3 g/dL (13.0-17.0); MCH 32.1 pg (27.0-32.0); MCHC 33.4 g/dL (32.0-37.0); Mean Platelet Volume 9.9 fL (9.5-12.2); Platelet Count 283 10*3/uL (140-440); RBC 3.21 10*6/uL (4.40-5.60); RDW 13.3 % (11.5-14.5); WBC 9.06 10*3/uL (4.50-10.00)
[2025-02-16 05:44] LABS: African American GFR (CKD) >90 (>60 ml/min/1.73 sqM); Anion Gap 2 mmol/L; Blood Urea Nitrogen 18 mg/dL (9-20); Calcium 8.6 mg/dL (8.4-10.2); Carbon Dioxide 30 mmol/L (22-30); Chloride 100 mmol/L (98-107); Glucose 98 mg/dL (74-99); Non-African American GFR(CKD) >90 (>60 ml/min/1.73 sqM); Potassium 4.6 mmol/L (3.5-5.1); Sodium 132 mmol/L (137-145)
--- NOTE | 2025-02-16 06:23 | P.PN ---
Progress Note - Text Progress Note Date: 02/16/25 Postoperative day #4 status post thoracotomy with left upper pneumonectomy, epidural catheter placed for postoperative analgesia, patient doing well epidural site okay, patient currently on combination of epidural infusion solution of Ropivacaine 0.0625% and Dilaudid 20 g per mL the infusion rate at 8 ml per hour , patient had no motor deficit epidural site okay , vital signs stable ,VAS 4 /10 , Assessment and plan= post operative day #4 patient doing well ,pain well controlled , there is no anesthesia related complications
--- NOTE | 2025-02-16 07:18 | P.PN ---
Subjective Progress Note Date: 02/16/25 Principal diagnosis: Lung cancer of the left upper lobe, biopsy proven invasive pulmonary adenocarcinoma with focal micropapillary features. History of hypertension, obstructive sleep apnea without home CPAP use, osteoarthritis, prostate disorder, back and neck surgery on chronic morphine for pain, ADHD, current tobacco dependence (patient states quit in July 2024 but daughter says still smoking), daily marijuana use POD #4 video thoracoscopy, left thoracotomy, lysis of pleural adhesions, left upper lobectomy, mediastinal lymph node dissection, cryoablation left inte rcostal nerves. The patient was seen and examined this morning sitting up in recliner in the intensive care unit in no acute distress. Continues to complain of significant left shoulder pain, states it hurts far worse than his surgical incision pain. States every time he coughs it hurts so bad he could cry. He is demanding to have a muscle doctor, specifically a sports doctor fix it. Lidocaine patch was ordered yesterday, patient states did not help at all. Dedicated shoulder x-ray was completed this morning. Upon further discussion patient states he had 15 physical therapy appointments regarding this shoulder in the past and it was better, now due to surgery it is bad again. Epidural remains in continues to be monitored by anesthesia. Remains in sinus rhythm with heart rate in 70s, hemodynamically stable. Currently on room air and able to achieve 2500 mL on incentive spirometry. Left pleural chest tube remains present to waterseal, minimal intermittent airleak present with coughing. X-rays, labs reviewed. He has ambulated in the hallway multiple times without difficulty. No other new concerns. Objective - Vital Signs Vital signs: Vital Signs Temp 98.8 F 02/16/25 04:00 Pulse 71 02/16/25 07:00 Resp 11 L 02/16/25 07:00 BP 123/68 02/16/25 06:00 Pulse Ox 96 02/16/25 06:00 FiO2 Intake & Output 02/15/25 02/16/25 02/16/25 18:59 06:59 18:59 Intake Total 876 276 3 Output Total 1015 1180 130 Balance -139 -904 -127 Weight 116 kg Intake: IV 36 36 3 0.9 saline art line 36 36 3 pressure bag Oral 840 240 Output: Chest Tube Drainage 270 100 Chest Tube Left 270 100 Drainage 30 Left Chest 30 Urine 1015 880 30 Other: Voiding Method Indwelling Catheter Indwelling Catheter ABP, PAP, CO, CI - Last Documented Arterial Blood Pressure 102/93 - Exam CONSTITUTIONAL: Appears agitated, no acute distress RESPIRATORY: Lungs sounds diminished bilaterally, left greater than right. Respirations even, nonlabored. Currently on room air with oxygen saturation 96%. Able to achieve 2500 mL on incentive spirometry. Strong cough. CARDIOVASCULAR: S1, S2 present. Regular rate and rhythm, sinus rhythm on telemetry. Palpable peripheral pulses bilaterally. No edema present. No calf pain or tenderness noted. SCDs present. GASTROINTESTINAL: Abdomen soft, nontender, nondistended. Active bowel sounds present 4 quadrants. Tolerating diet. Positive bowel movement 02/15 GENITOURINARY: Neely present draining clear, yellow urine. Output 50-100 mL/h overnight, 1895 mL in the last 24 hours INTEGUMENTARY: Skin is warm and dry with evidence of good perfusion. Thoracic incision well approximated and covered with dry intact dressing. NEUROLOGIC: Cranial nerves II through XII intact MUSKULOSKELETAL: Able to move all extremities, strength equal bilaterally, gait normal PSYCHIATRIC: Alert and oriented to person place and time, appropriate affect, intact judgment and insight INVASIVE LINES AND TUBES: Left pleural chest tubes present to waterseal, intermittent leak present with coughing, 140 mL serosanguineous drainage overnight, 300 mL in the last 24 hours - Allied health notes Allied health notes reviewed: nursing - Labs CBC & Chem 7: 02/16/25 05:07 02/16/25 05:07 Labs: Abnormal Lab Results - Last 24 Hours (Table) 02/15/25 02/15/25 02/16/25 Range/Units 09:50 09:50 05:07 RBC 3.69 L 3.21 L (4.40-5.60) 10*6/uL Hgb 11.7 L 10.3 L (13.0-17.0) g/dL Hct 36.0 L 30.8 L (39.6-50.0) % MCV 97.6 H (80.0-97.0) fL MCH 32.1 H (27.0-32.0) pg Sodium 132 L (137-145) mmol/L Glucose 110 H (74-99) mg/dL 02/16/25 Range/Units 05:07 RBC (4.40-5.60) 10*6/uL Hgb (13.0-17.0) g/dL Hct (39.6-50.0) % MCV (80.0-97.0) fL MCH (27.0-32.0) pg Sodium 132 L (137-145) mmol/L Glucose (74-99) mg/dL - Imaging and Cardiology Chest x-ray: image reviewed Assessment and Plan Assessment: Lung cancer of the left upper lobe, biopsy proven invasive pulmonary adenocarcinoma with focal micropapillary features, status post video thoracoscopy, left thoracotomy, lysis of pleural adhesions, left upper lobe ctomy, mediastinal lymph node dissection, cryoablation left intercostal nerves Left shoulder pain, patient admittedly had history of with treatment by physical therapy, likely from OR positioning History of hypertension Obstructive sleep apnea without home CPAP use Osteoarthritis Prostate disorder Back and neck surgery on chronic morphine for pain for 18 years ADHD Current tobacco dependence (patient states quit in July 2024 but daughter says still smoking) Daily marijuana use Plan: Will consult physical therapy to work with patient's left shoulder Will consult orthopedics for evaluation Continue current medication regimen Continue left pleural chest to waterseal Encourage incentive spirometry use 10 times every hour while awake, bronchodilators per pulmonology Will monitor daily labs and x-rays, electrolyte replacement per protocol GI/DVT prophylaxis Pain control per current medication regimen Increase activity, ambulate as tolerated Continue Neely catheter while epidural in place Await final pathology Keep in the ICU for another 24 hours More recommendations to follow
--- NOTE | 2025-02-16 07:46 | XR ---
EXAMINATION TYPE: XR shoulder complete LT DATE OF EXAM: 02/16/2025 5:48 AM COMPARISON: None CLINICAL INDICATION: Male, 64 years old with history of shoulder pain post surgery; PHH, pain TECHNIQUE: 3 views FINDINGS: Slight prominence at the AC joint space with degenerative spurring. There is a tiny 7 mm gay of jose cification along the lateral margin of the greater tuberosity. Partially visualized cervical fusion h ardware. Skin cassandra along the left is chest wall. Left-sided chest tube is in place. There appears to be a pneumothorax but this will be better evaluated on the dedicated chest radiograph performed at the same time. No acute fracture, subluxation, dislocation. IMPRESSION: 1. Tiny 7 mm gay of calcification along the lateral margin of the greater tuberosity. Correlate for any symptoms of potential calcific tendinitis/calcific bursitis of the rotator cuff. 2. Slightly prominent joint space of the AC joint could reflect an AC joint sprain. Correlate for any point tenderness or old injury. There is no abnormal offset. 3. There appears to be a pneumothorax on the left. This is better assessed on the separate radiograph performed at the same time. [facility], , 02/16/2025 7:44 AM
--- NOTE | 2025-02-16 07:49 | XR ---
EXAMINATION TYPE: XR chest 2V DATE OF EXAM: 02/16/2025 5:48 AM COMPARISON: 02/15/2025 CLINICAL INDICATION: Male, 64 years old with history of post left upper lobectomy, , TECHNIQUE: Frontal and lateral views FINDINGS: ACDF and posterior cervical fusion hardware. Postsurgical change left side of the chest with skin sta ples and left chest tube in place. A moderate size pneumothorax on the left persists slightly larger measuring 7.1 cm versus 6.5 cm, previously. Patchy opacities at the left lower lung and trace effusio n shows slight improvement. Hyperinflation. DISH lower thoracic spine. IMPRESSION: 1. Ongoing moderate-sized left pneumothorax currently 7.1 cm versus 6.5 cm, previously. Status post l eft upper lobectomy. Chest tube in place. 2. Slight improvement in patchy atelectasis/consolidation and trace effusion at the left lower lung. [facility], Workstation: [facility], 02/16/2025 7:46 AM
--- NOTE | 2025-02-16 12:11 | P.PN ---
Subjective Progress Note Date: 02/16/25 Principal diagnosis: Lung cancer. This is a 64-year-old white male, [id number] smoking history, quit smoking in July of 2024, history of chronic back pain and multiple back surgeries, patient was supposed to have cervical spine surgery, prior to the surgery, workup was done including a chest x-ray that showed a left upper lobe nodule. Patient had a CT of the chest and he was found to have a 2.9 x 2.4 cm nodule in the left upper lobe spiculated highly suspicious for bronchogenic carcinoma. There was another 0.9 x 0.7 noncalcified nodule in the left lower lobe. Patient had borderline mediastinal adenopathy but no hypermetabolic activity. Findings were clearly highly suspicious for bronchogenic carcinoma patient had a PET scan, and he underwent robotic Ion bronchoscopy and biopsy, this was done on 01/02/2025, patient was discovered to have atypical cells consistent with non- small cell lung carcinoma. Lymph node aspirations including station 10L and 7 were negative for malignancy. Hence patient was referred to Dr. Umanzor and yesterday the patient underwent Video thoracoscopy, left thoracotomy, lysis of pleural adhesions, left upper lobectomy, mediastinal lymph node dissection, cryoablation left intercostal nerves.. His immediate postoperative course was uneventful patient was admitted to the ICU and I was asked to see him on consultation. I am seeing the patient today in the ICU, he is on room air, does not seem to be in any distress, however he does have abnormal chest x-ray showing fairly large left-sided pneumothorax with chest tube in place and he has air leak. Thoracic surgery is aware of the findings on the chest x-ray and at this point not recommending any further intervention. Labs showed WBC count of 14.6 hemoglobin 12.4 electrolytes are normal renal profile is normal Patient was seen today on 02/15/2024, patient remains in the ICU, doing fairly well, not in any distress, no cough no wheezing no chest pain no shortness of br eath, continues to have fairly good sized left-sided pneumothorax, achieving 2500 cc on incentive spirometry, continues to have chest tube in place on wall suction today, and he does have airleak, patient has been ambulating in the hallway with out any difficulty. WBC count is 9.9 hemoglobin 11.4 electrolytes are normal renal profile is normal Patient was seen today on 02/15/2025, remains in the ICU, on room air, not in any distress, continues to have airleak from his left-sided chest tube/Pleur-evac, patient is now on waterseal, continues to have epidural catheter in place, pain is fairly well-controlled 02/12. Patient slept well last night, he is already ambulating in the room with minimal assistance. WBC count is 9.96 hemoglobin 11.7 electrolytes are normal renal profile is normal chest x-ray was reviewed continues to have left-sided pneumothorax and again there is ongoing airleak n oted. Progress note dated February 16, 2025. 64-year-old male seen today in room 256. Currently, the patient is on room air. Saturations are 97%. He is postoperative day #4, status post left upper l obectomy, and mediastinal lymph node dissection. The patient is sitting in the chair next to his hospital bed. He is not receiving any IV fluids. The patient has a history of non-small cell lung cancer. White count 9.06, hemoglobin 10.3, hematocrit 30.8, and platelet count 283,000. Sodium 132, potassium 4.6, chlorides 100, CO2 30, BUN 18, creatinine 0.73. Glucose is 98. The patient's chest x-ray shows an ongoing moderate-sized left pneumothorax, currently measuring 7.1 cm versus 6.5 cm from the previous x-ray. Objective - Vital Signs Vital signs: Vital Signs Temp 98.9 F 02/16/25 08:00 Pulse 74 02/16/25 12:03 Resp 15 02/16/25 11:00 BP 129/78 02/16/25 09:00 Pulse Ox 94 L 02/16/25 11:00 FiO2 Intake & Output 02/15/25 02/16/25 02/16/25 18:59 06:59 18:59 Intake Total 876 276 3 Output Total 1015 1180 415 Balance -139 -904 -412 Weight 116 kg Intake: IV 36 36 3 0.9 saline art line 36 36 3 pressure bag Oral 840 240 Output: Chest Tube Drainage 270 100 Chest Tube Left 270 100 Drainage 30 Left Chest 30 Urine 1015 880 315 Other: Voiding Method Indwelling Catheter Indwelling Catheter Indwelling Catheter ABP, PAP, CO, CI - Last Documented Arterial Blood Pressure 102/93 - Exam No acute distress, oriented 3. HEENT examination is grossly unremarkable. Mucous membranes are moist. No oral lesions. Neck supple. Full range of motion. No adenopathy thyromegaly or neck vein distention. Cardiovascular examination reveals regular rhythm rate. S1-S2 normal. No S3 or S4. No discernible murmur noted. Lungs reveal clear breath sounds. Breath sounds are equal bilaterally. No adventitious lung sounds including wheezes rhonchi or crackles. Left-sided chest tube is noted. Abdomen soft bowel sounds are heard. No masses or tenderness. Extremities are intact. No cyanosis clubbing or edema. Skin is without rash or lesion. Neurologic examination is brief but nonfocal. - Labs CBC & Chem 7: 02/16/25 05:07 02/16/25 05:07 Labs: Abnormal Lab Results - Last 24 Hours (Table) 02/16/25 02/16/25 Range/Units 05:07 05:07 RBC 3.21 L (4.40-5.60) 10*6/uL Hgb 10.3 L (13.0-17.0) g/dL Hct 30.8 L (39.6-50.0) % MCH 32.1 H (27.0-32.0) pg Sodium 132 L (137-145) mmol/L Assessment and Plan Assessment: Non-small cell lung cancer/adenocarcinoma, status post left upper lobectomy, mediastinal lymph node dissection, and cryoablation of left intercostal nerves, postoperative day #4. Postoperative left-sided pneumothorax. Benign essential hypertension. Mild COPD. Obstructive sleep apnea syndrome. Degenerative joint disease. Chronic back pain. History of ADHD. Prior history of tobacco use. Plan: Plan dated February 16, 2025. Plan dated February 16, 2025. The patient is seen today in room 256. The patient is doing reasonably well. He is on room air. He is not receiving any IV fluids. Chest x-ray still shows a left-sided pneumothorax. Today is postoperative day #4. Labs, x-rays, and all medications are reviewed. Cardiothoracic surgery would like the patient to remain in intensive care unit patient. Additional recommendations and suggestions are forthcoming. Prognosis is guarded. We will continue to follow. Dictation was produced using mobiliThinkation software. Please excuse any grammatical, word or spelling errors. Time with Patient: Less than 30
--- NOTE | 2025-02-16 12:15 | P.CNOR ---
History of Present Illness - [facility] Consult date: 02/16/25 Consult reason: joint pain (Left shoulder pain) History of present illness: Patient is a 64-year-old gentleman who has been admitted to [facility] after undergoing a thoracoscopy, left thoracotomy, lysis of pleural adhesions, left upper lobectomy, mediastinal lymph node dissection, cryoablation left intercostal nerves, he currently is in the ICU and being followed by other medical specialties. Orthopedic team was consulted with regards to left shoulder pain that has been noticeable since after his surgery. Patient had been evaluated today in the ICU, he was sitting up in his hospital chair appearing to be in no acute distress. When asked about his left shoulder, he states it is more in the lower aspect of the shoulder blade and the shoulder joint itself. Patient has a history of a rather extensive cervical fusion where he underwent a posterior fusion back in September 2024. Patient had been dealing with similar shoulder issues after that procedure. He had been working with a physical therapist in the [place] area that seemed t improve most of the symptoms. Since the surgery, he feels that the positioning that he was placed in for the lobectomy is caused most of the shoulder discomfort. He denies any falls while being in the hospital, or any other traumatic events. Patient d enies any previous surgery to his left shoulder. He has no other orthopedic complaints at this time. Review of Systems Constitutional: Reports as per [facility] Past Medical History Past Medical History: Cancer, Hypertension, Osteoarthritis (OA), Prostate Disorder, Sleep Apnea/CPAP/BIPAP Additional Past Medical History / Comment(s): doesn't use anything for sleep apnea, new dx. lung cancer History of Any Multi-Drug Resistant Organisms: None Reported Past Surgical History: Back Surgery Additional Past Surgical History / Comment(s): neck x3, lower back fusions- morphine for pain sice 18 years, cervical fusion in September 2024, bronchoscopy Past Anesthesia/Blood Transfusion Reactions: No Reported Reaction Additional Past Anesthesia/Blood Transfusion Reaction / Comm: no blood transfusions Smoking Status: Current every day smoker - Past Family History Mother Family Medical History: Cancer Additional Family Medical History / Comment(s): throat Medications and Allergies Home Medications Medication Instructions Recorded Confirmed Type Dextroamphetamine/Amphetamine 20 mg PO DAILY 12/31/24 02/10/25 History [Adderall] Morphine Sulfate [Jojo] 60 mg PO TID 12/31/24 02/10/25 History Ziprasidone [Geodon] 20 mg PO BID 12/31/24 02/10/25 History Metoprolol Succinate (ER) [Toprol 50 mg PO DAILY 02/10/25 02/10/25 History Xl] Ibuprofen [Motrin] 800 mg PO DIRECTED PRN 02/11/25 02/11/25 History Allergies Allergy/AdvReac Type Severity Reaction Status Date / Time oxytetracycline Allergy Unknown Verified 02/12/25 10:30 [From Terramycin] Penicillins AdvReac Swelling Verified 02/12/25 10:30 Physical Examination Left upper extremity: No open lesions or sores are visualized surrounding the left shoulder both anterior, lateral and posterior. A Optifoam dressing is present over his surgical incision in the left flank. There is no areas of erythema or soft tissue swelling Patient is nontender along the glenohumeral joint line, the acromioclavicular joint in order lateral aspect of the acromion. He does demonstrate some point tenderness along the lateral and posterior aspect of the shoulder blade. Patient remains nontender to the humerus, elbow, forearm, hand and wrist Patient demonstrates adequate active range of motion with the shoulder with regards to forward elevation, abduction, elbow extension, elbow flexion, wrist extension, wrist flexion, finger intrinsics. His strength is adequate at this time, there is no focal deficits appreciated Negative crossarm test Negative Neer sign His sensory exam to light touch throughout that extremity is intact Radial and ulnar pulse are 2+ Results - Labs Labs: Abnormal Lab Results - Last 24 Hours (Table) 02/16/25 02/16/25 Range/Units 05:07 05:07 RBC 3.21 L (4.40-5.60) 10*6/uL Hgb 10.3 L (13.0-17.0) g/dL Hct 30.8 L (39.6-50.0) % MCH 32.1 H (27.0-32.0) pg Sodium 132 L (137-145) mmol/L H & H 02/13/25 02/14/25 02/15/25 Range/Units 03:16 03:05 09:50 Hgb 12.4 L 11.4 L 11.7 L (13.0-17.0) g/dL Hct 37.8 L 34.7 L 36.0 L (39.6-50.0) % 02/16/25 Range/Units 05:07 Hgb 10.3 L (13.0-17.0) g/dL Hct 30.8 L (39.6-50.0) % Result Diagrams: 02/16/25 05:07 02/16/25 05:07 - Diagnostic results Shoulder x-ray: report reviewed, image reviewed (Shoulder x-rays were reviewed, along with the reports. Images demonstrate no acute fractures or dislocations. The glenohumeral joint remains intact. There is a small amount of calcification noted near the lateral aspect of the greater tuberosity) Assessment and Plan Assessment: Left shoulder pain Left scapular pain History of recent thoracoscopy, left thoracotomy, lysis of pleural adhesions, left upper lobectomy, mediastinal lymph node dissection, cryoablation left intercostal nerves History of posterior cervical fusion Multiple medical comorbidities Plan: I was able to discuss the case, this to include both physical exam findings and imaging studies and my attending Dr. Madrid. No orthopedic surgical intervention recommended at this time Discussed conservative measures with this patient, I feel that the surgical positioning along with hi posterior cervical fusion is likely was contributing to most of his symptoms. We discussed the high likelihood of outpatient physical therapy after he is discharged from the hospital to work on the surrounding scapular muscles. Pain control, patient does take oral morphine which she has been on for years. I also recommended restarting his anti-inflammatory if okay via his cardiothoracic team. Could also consider a muscle relaxer in the short-term for the overall discomfort Activity level modification was discussed with the patient, recommending avoiding heavy lifting at this time both with regards to the recent neck surgery and his current shoulder issue PT/OT recommendations appreciated GI DVT prophylaxis per primary medical service Orthopedically patient remains stable, our follow-up information will be placed in chart for an as needed basis. Please contact our service with any further questions regarding this patient Time with Patient: Less than 30
[2025-02-16] MEDS: SYMBICORT 160-4.5 MCG INHALER INHALATION SCH (19:55)
[2025-02-17 05:52] LABS: HCT 31.2 % (39.6-50.0); HGB 10.4 g/dL (13.0-17.0); MCH 32.1 pg (27.0-32.0); MCHC 33.3 g/dL (32.0-37.0); MCV 96.3 fL (80.0-97.0); Mean Platelet Volume 9.8 fL (9.5-12.2); Platelet Count 283 10*3/uL (140-440); RBC 3.24 10*6/uL (4.40-5.60); RDW 13.6 % (11.5-14.5); WBC 9.43 10*3/uL (4.50-10.00)
[2025-02-17 06:06] LABS: African American GFR (CKD) >90 (>60 ml/min/1.73 sqM); Anion Gap 1 mmol/L; Blood Urea Nitrogen 20 mg/dL (9-20); Calcium 8.7 mg/dL (8.4-10.2); Carbon Dioxide 33 mmol/L (22-30); Chloride 99 mmol/L (98-107); Glucose 120 mg/dL (74-99); Non-African American GFR(CKD) 88 (>60 ml/min/1.73 sqM); Sodium 133 mmol/L (137-145)
--- NOTE | 2025-02-17 07:40 | P.PN ---
Subjective Progress Note Date: 02/17/25 Principal diagnosis: Lung cancer of the left upper lobe, biopsy proven invasive pulmonary adenocarcinoma with focal micropapillary features. History of hypertension, obstructive sleep apnea without home CPAP use, osteoarthritis, prostate disorder, back and neck surgery on chronic morphine for pain, ADHD, current tobacco dependence (patient states quit in July 2024 but daughter says still smoking), daily marijuana use POD #5 video thoracoscopy, left thoracotomy, lysis of pleural adhesions, left upper lobectomy, mediastinal lymph node dissection, cryoablation left inte rcostal nerves. The patient was seen and examined this morning sitting up in recliner in the intensive care unit in no acute distress. Continues to complain of significant left shoulder pain, was seen yesterday by orthopedics who recommended no surgical intervention, conservative treatment, physical therapy, anti- inflammatory along with muscle relaxer which patient is already on. Physical therapy was reconsulted yesterday although did not see patient yesterday, discussed with them this morning the need for physical therapy for patient's left shoulder. Epidural remains in, continues to be monitored by anesthesia. Remains in sinus rhythm with heart rate in 70s, hemodynamically stable. Cu rrently on room air and able to achieve 2500 mL on incentive spirometry. Left pleural chest tube remains present to waterseal, minimal intermittent airleak present with coughing. X-rays, labs reviewed, no change in left-sided volume loss. He has ambulated in the hallway multiple times without difficulty. No other new concerns. Objective - Vital Signs Vital signs: Vital Signs Temp 98.7 F 02/17/25 04:00 Pulse 71 02/17/25 07:00 Resp 21 02/17/25 07:00 BP 120/75 02/17/25 07:00 Pulse Ox 96 02/17/25 07:00 FiO2 Intake & Output 02/16/25 02/17/25 02/17/25 18:59 06:59 18:59 Intake Total 243 1182 Output Total 1185 1520 Balance -942 -338 Weight 115.4 kg Intake: IV 3 0.9 saline art line 3 pressure bag Oral 240 1182 Output: Chest Tube Drainage 100 140 Chest Tube Left 100 140 Drainage 20 Left Chest 20 Urine 1065 1380 Other: Voiding Method Indwelling Catheter Indwelling Catheter ABP, PAP, CO, CI - Last Documented Arterial Blood Pressure 102/93 - Exam CONSTITUTIONAL: Appears calm this morning, no acute distress RESPIRATORY: Lungs sounds diminished bilaterally, left greater than right. Respirations even, nonlabored. Currently on room air with oxygen saturation 95%. Able to achieve 2500 mL on incentive spirometry. Strong cough. CARDIOVASCULAR: S1, S2 present. Regular rate and rhythm, sinus rhythm on telemetry. Palpable peripheral pulses bilaterally. No edema present. No calf pain or tenderness noted. SCDs present. GASTROINTESTINAL: Abdomen soft, nontender, nondistended. Active bowel sounds present 4 quadrants. Tolerating diet. Positive bowel movement 02/15 GENITOURINARY: Neely present draining clear, yellow urine. Output 50-150 mL/h overnight, 2145 mL in the last 24 hours INTEGUMENTARY: Skin is warm and dry with evidence of good perfusion. Thoracic incision well approximated and covered with dry intact dressing. NEUROLOGIC: Cranial nerves II through XII intact MUSKULOSKELETAL: Able to move all extremities, strength equal bilaterally, gait normal PSYCHIATRIC: Alert and oriented to person place and time, appropriate affect, intact judgment and insight INVASIVE LINES AND TUBES: Left pleural chest tubes present to waterseal, intermittent leak present with coughing, 270 mL serosanguineous drainage in the last 24 hours - Allied health notes Allied health notes reviewed: nursing - Labs CBC & Chem 7: 02/17/25 05:22 02/17/25 05:22 Labs: Abnormal Lab Results - Last 24 Hours (Table) 02/17/25 02/17/25 Range/Units 05:22 05:22 RBC 3.24 L (4.40-5.60) 10*6/uL Hgb 10.4 L (13.0-17.0) g/dL Hct 31.2 L (39.6-50.0) % MCH 32.1 H (27.0-32.0) pg Sodium 133 L (137-145) mmol/L Carbon Dioxide 33 H (22-30) mmol/L Glucose 120 H (74-99) mg/dL - Imaging and Cardiology Chest x-ray: image reviewed Assessment and Plan Assessment: Lung cancer of the left upper lobe, biopsy proven invasive pulmonary adenocarcinoma with focal micropapillary features, status post video thoracoscopy, left thoracotomy, lysis of pleural adhesions, left upper lobectomy, mediastinal lymph node dissection, cryoablation left intercostal ner ves Left shoulder pain, patient admittedly had history of with treatment by physical therapy, likely from OR positioning History of hypertension Obstructive sleep apnea without home CPAP use Osteoarthritis Prostate disorder Back and neck surgery on chronic morphine for pain for 18 years ADHD Current tobacco dependence (patient states quit in July 2024 but daughter says still smoking) Daily marijuana use Plan: Discussed with physical therapy the need to work with patient's left shoulder Orthopedics consultation appreciated, conservative treatment, physical therapy, anti-inflammatories and muscle relaxants Continue current medication regimen Continue left pleural chest to waterseal Encourage incentive spirometry use 10 times every hour while awake, bronchod ilators per pulmonology Will monitor daily labs and x-rays, electrolyte replacement per protocol GI/DVT prophylaxis Pain control per current medication regimen Increase activity, ambulate as tolerated Continue Neely catheter while epidural in place Await final pathology Keep in the ICU for another 24 hours More recommendations to follow
--- NOTE | 2025-02-17 07:40 | XR ---
EXAMINATION TYPE: XR chest 1V portable DATE OF EXAM: 02/17/2025 5:13 AM COMPARISON: 02/16/2025 CLINICAL INDICATION: Male, 64 years old with history of post left upper lobectomy, , FINDINGS: Postsurgical change along the left side of the chest with skin cassandra. Left upper thoracic pneumotho rax currently measuring 8.2 cm versus 7.1 cm, previously. Similar to slightly larger. ACDF and manager support ior cervical fusion hardware. Trace left pleural effusion with some increasing patchy opacity at the left lower lung. Interstitium may be slightly more pronounced on the right. Heart borderline to mildl y enlarged. Left-sided chest tube in place. IMPRESSION: 1. Status post left upper lobectomy with similar to slightly larger left-sided pneumothorax currently 8.2 cm in size versus 7.1 cm, previously. Left-sided chest tube in place. 2. A trace left pleural effusion persists. Patchy opacities left lower lung have increased. 3. Borderline to mild cardiomegaly. Slight increasing interstitial density on the right. Correlate to exclude early pulmonary vascular congestion. [facility], , 02/17/2025 7:38 AM
--- NOTE | 2025-02-17 08:32 | P.PN ---
Progress Note - Text Progress Note Date: 02/17/25 (6597) Anesthesia Postop day 4 Status post thoracotomy with epidural day #5 Patient seen and examined. Doing well without complaint. VAS 4 out of 10. No nausea vomiting or pruritus. Ropivacaine0.1% with Dilaudid 20 mcg/mL at 8 cc an hour. Objective: Vital signs reviewed Lungs: Good chest excursion Abdomen: Appears nondistended Other: Epidural Site Intact without induration. Dressing intact Neuro: No apparent motor block. Sensory within normal limits. Assessment: Status post thoracotomy postop day #4 Plan: Continue current care with your medical management. Anticipate discontinued catheter today. Spoke with nurse. To be pulled 8 hours after last subcu heparin and may resume immediately after.
--- NOTE | 2025-02-17 11:53 | P.PN ---
Subjective Progress Note Date: 02/17/25 Principal diagnosis: Lung cancer. This is a 64-year-old white male, [id number] smoking history, quit smoking in July of 2024, history of chronic back pain and multiple back surgeries, patient was supposed to have cervical spine surgery, prior to the surgery, workup was done including a chest x-ray that showed a left upper lobe nodule. Patient had a CT of the chest and he was found to have a 2.9 x 2.4 cm nodule in the left upper lobe spiculated highly suspicious for bronchogenic carcinoma. There was another 0.9 x 0.7 noncalcified nodule in the left lower lobe. Patient had borderline mediastinal adenopathy but no hypermetabolic activity. Findings were clearly highly suspicious for bronchogenic carcinoma patient had a PET scan, and he underwent robotic Ion bronchoscopy and biopsy, this was done on 01/02/2025, patient was discovered to have atypical cells consistent with non- small cell lung carcinoma. Lymph node aspirations including station 10L and 7 were negative for malignancy. Hence patient was referred to Dr. Umanzor and yesterday the patient underwent Video thoracoscopy, left thoracotomy, lysis of pleural adhesions, left upper lobectomy, mediastinal lymph node dissection, cryoablation left intercostal nerves.. His immediate postoperative course was uneventful patient was admitted to the ICU and I was asked to see him on consultation. I am seeing the patient today in the ICU, he is on room air, does not seem to be in any distress, however he does have abnormal chest x-ray showing fairly large left-sided pneumothorax with chest tube in place and he has air leak. Thoracic surgery is aware of the findings on the chest x-ray and at this point not recommending any further intervention. Labs showed WBC count of 14.6 hemoglobin 12.4 electrolytes are normal renal profile is normal Patient was seen today on 02/15/2024, patient remains in the ICU, doing fairly well, not in any distress, no cough no wheezing no chest pain no shortness of br eath, continues to have fairly good sized left-sided pneumothorax, achieving 2500 cc on incentive spirometry, continues to have chest tube in place on wall suction today, and he does have airleak, patient has been ambulating in the hallway with out any difficulty. WBC count is 9.9 hemoglobin 11.4 electrolytes are normal renal profile is normal Patient was seen today on 02/15/2025, remains in the ICU, on room air, not in any distress, continues to have airleak from his left-sided chest tube/Pleur-evac, patient is now on waterseal, continues to have epidural catheter in place, pain is fairly well-controlled 02/12. Patient slept well last night, he is already ambulating in the room with minimal assistance. WBC count is 9.96 hemoglobin 11.7 electrolytes are normal renal profile is normal chest x-ray was reviewed continues to have left-sided pneumothorax and again there is ongoing airleak n oted. Progress note dated February 16, 2025. 64-year-old male seen today in room 256. Currently, the patient is on room air. Saturations are 97%. He is postoperative day #4, status post left upper l obectomy, and mediastinal lymph node dissection. The patient is sitting in the chair next to his hospital bed. He is not receiving any IV fluids. The patient has a history of non-small cell lung cancer. White count 9.06, hemoglobin 10.3, hematocrit 30.8, and platelet count 283,000. Sodium 132, potassium 4.6, chlorides 100, CO2 30, BUN 18, creatinine 0.73. Glucose is 98. The patient's chest x-ray shows an ongoing moderate-sized left pneumothorax, currently measuring 7.1 cm versus 6.5 cm from the previous x-ray. Progress note dated February 17, 2025. 64-year-old male seen today in room 256. The patient is postoperative day #5, status post left upper lobectomy and mediastinal lymph node dissection. He is sitting in the chair next to the hospital bed. Left chest tube is still in place. He still has a leak. There is a left apical pneumothorax, moderate in size. The patient has no specific complaints. White count was 9.43, hemoglobin 10.4, hematocrit 31.2, and platelet count 283,000. Sodium 133, potassium 5, chloride 99, CO2 33, anion gap 1, BUN 20, creatinine 0.92. Glucose is 120. Calcium is 8.7. Objective - Vital Signs Vital signs: Vital Signs Temp 98.1 F 02/17/25 09:00 Pulse 70 02/17/25 11:45 Resp 16 02/17/25 09:00 BP 151/90 02/17/25 09:00 Pulse Ox 97 04/15/25 09:00 FiO2 Intake & Output 02/16/25 02/17/25 02/17/25 18:59 06:59 18:59 Intake Total 243 1182 Output Total 1185 1520 150 Balance -942 -338 -150 Weight 115.4 kg Intake: IV 3 0.9 saline art line 3 pressure bag Oral 240 1182 Output: Chest Tube Drainage 100 140 Chest Tube Left 100 140 Drainage 20 Left Chest 20 Urine 1065 1380 150 Other: Voiding Method Indwelling Catheter Indwelling Catheter Indwelling Catheter ABP, PAP, CO, CI - Last Documented Arterial Blood Pressure 102/93 - Exam No acute distress, oriented 3. HEENT examination is grossly unremarkable. Mucous membranes are moist. No oral lesions. Neck supple. Full range of motion. No adenopathy thyromegaly or neck vein distention. Cardiovascular examination reveals regular rhythm rate. S1-S2 normal. No S3 or S4. No discernible murmur noted. Lungs reveal clear breath sounds. Breath sounds are equal bilaterally. No adventitious lung sounds including wheezes rhonchi or crackles. Left-sided chest tube is noted. The patient still has a leak from the left chest tube. Abdomen soft bowel sounds are heard. No masses or tenderness. Extremities are intact. No cyanosis clubbing or edema. Skin is without rash or lesion. Neurologic examination is brief but nonfocal. - Labs CBC & Chem 7: 02/17/25 05:22 02/17/25 05:22 Labs: Abnormal Lab Results - Last 24 Hours (Table) 02/17/25 02/17/25 Range/Units 05:22 05:22 RBC 3.24 L (4.40-5.60) 10*6/uL Hgb 10.4 L (13.0-17.0) g/dL Hct 31.2 L (39.6-50.0) % MCH 32.1 H (27.0-32.0) pg Sodium 133 L (137-145) mmol/L Carbon Dioxide 33 H (22-30) mmol/L Glucose 120 H (74-99) mg/dL Assessment and Plan Assessment: Non-small cell lung cancer/adenocarcinoma, status post left upper lobectomy, mediastinal lymph node dissection, and cryoablation of left intercostal nerves, postoperative day #5. Postoperative left-sided pneumothorax. Benign essential hypertension. Mild COPD. Obstructive sleep apnea syndrome. Degenerative joint disease. Chronic back pain. History of ADHD. Prior history of tobacco use. Plan: Plan dated February 16, 2025. Plan dated February 16, 2025. The patient is seen today in room 256. The patient is doing reasonably well. He is on room air. He is not receiving any IV fluids. Chest x-ray still shows a left-sided pneumothorax. Today is postoperative day #4. Labs, x-rays, and all medications are reviewed. Cardiothoracic surgery would like the patient to remain in intensive care unit patient. Additional recommendations and suggestions are forthcoming. Prognosis is guarded. We will continue to follow. Dictation was produced using [employer] software. Please excuse any grammatical, word or spelling errors. Plan dated February 17, 2025. The patient is seen today in room 256. The patient is on room air. No IV fluids. Left chest tube remains in place. Today's chest x-ray shows a moderately sized left apical pneumothorax. The patient is otherwise doing reasonably well. Has no specific complaints. He is awake and alert. All labs, x-rays, medications are reviewed. The patient is postoperative day #5. We will continue to follow make recommendations along the way. We encouraged hourly use of the incentive spirometer. Dictation was produced using [employer] software. Please excuse any grammatical, word or spelling errors. Time with Patient: Less than 30
[2025-02-17] MEDS: HYDROmorphone 0.5 MG/0.5 ML SYRINGE IVP PRN (21:51)
[2025-02-18 06:06] LABS: HGB 10.8 g/dL (13.0-17.0); MCH 31.5 pg (27.0-32.0); MCHC 32.7 g/dL (32.0-37.0); MCV 96.2 fL (80.0-97.0); Platelet Count 307 10*3/uL (140-440); RBC 3.43 10*6/uL (4.40-5.60); RDW 13.2 % (11.5-14.5); WBC 8.56 10*3/uL (4.50-10.00)
[2025-02-18 07:03] LABS: African American GFR (CKD) >90 (>60 ml/min/1.73 sqM); Anion Gap 3 mmol/L; Blood Urea Nitrogen 18 mg/dL (9-20); Calcium 9.1 mg/dL (8.4-10.2); Carbon Dioxide 32 mmol/L (22-30); Chloride 98 mmol/L (98-107); Glucose 105 mg/dL (74-99); Non-African American GFR(CKD) >90 (>60 ml/min/1.73 sqM); Potassium 4.7 mmol/L (3.5-5.1); Sodium 133 mmol/L (137-145)
--- NOTE | 2025-02-18 07:36 | XR ---
EXAMINATION TYPE: XR chest 1V portable DATE OF EXAM: 02/18/2025 4:15 AM COMPARISON: 02/17/2025 CLINICAL INDICATION: Male, 64 years old with history of Left upper lobectomy, , FINDINGS: Left-sided chest tube remains in place as well as overlying skin cassandra. The left-sided subcutaneous emphysema has slightly diminished. Ongoing postsurgical volume loss left hemithorax; volume loss may have slightly progressed given slightly more left-sided positioning of the heart. The left apical pn eumothorax currently measuring 6.4 cm versus 8.2 cm, previously. Patchy left lower lung opacity with trace effusion is there is some increasing patchy medial right basilar opacity noted. ACDF hardware with posterior cervical fusion changes redemonstrated. Heart upper limits of normal in size. IMPRESSION: 1. Status post left upper lobectomy with left-sided pneumothorax measuring 6.4 cm versus 8.2 cm, prev iously. Left-sided chest tube remains in place. 2. The heart has shifted slightly more to the left suggesting slight progression in volume loss on th e left side. The trace left pleural effusion and patchy opacities within the left lower lung are rela tively similar. 3. Developing patchy atelectasis/infiltrate at the medial right base. [facility], , 02/18/2025 7:34 AM
--- NOTE | 2025-02-18 08:24 | P.PN ---
Subjective Progress Note Date: 02/18/25 Principal diagnosis: Lung cancer of the left upper lobe, biopsy proven invasive pulmonary adenocarcinoma with focal micropapillary features. History of hypertension, obstructive sleep apnea without home CPAP use, osteoarthritis, prostate disorder, back and neck surgery on chronic morphine for pain, ADHD, current tobacco dependence (patient states quit in July 2024 but daughter says still smoking), daily marijuana use POD #6 video thoracoscopy, left thoracotomy, lysis of pleural adhesions, left upper lobectomy, mediastinal lymph node dissection, cryoablation left inte rcostal nerves. The patient was seen and examined this morning sitting up in recliner in the intensive care unit in no acute distress. Epidural was removed yesterday per anesthesia's requirement, patient was then started on IV Dilaudid every 3 hours for better pain control, continues to be on his home dose of MS Contin, Toradol, Robaxin, still states his pain is significantly worse, and review that epidural was removed. He was seen yesterday by physical therapy, at that time patient states he did not need the therapist and that he wants someone to fix his shoulder. Discussed with patient orthopedics recommendations for outpatient physical therapy. Remains in sinus rhythm with heart rate in 70s, hemodynamically stable although a little hypertensive likely from pain. Currently on room air and able to achieve 2500 mL on incentive spirometry. Left pleural chest tube remains present to waterseal, no airleak present this morning. X-rays, labs reviewed. He has ambulated in the hallway multiple times without difficulty. Pathology resulted, consistent with invasive moderately differentiated acinar pulmonary adenocarcinoma, T1c N0 M0. Objective - Vital Signs Vital signs: Vital Signs Temp 97.8 F 02/18/25 04:00 Pulse 73 02/18/25 07:00 Resp 13 02/18/25 07:00 BP 143/119 02/18/25 07:00 Pulse Ox 93 L 02/18/25 07:00 FiO2 Intake & Output 02/17/25 02/18/25 02/18/25 18:59 06:59 18:59 Intake Total 1460 Output Total 1665 2039 60 Balance - -2039 -60 Weight 113.5 kg Intake: Oral 1460 Output: Chest Tube Drainage 90 115 15 Chest Tube Left 90 115 15 Urine 1575 1925 45 Other: Voiding Method Indwelling Catheter Indwelling Catheter ABP, PAP, CO, CI - Last Documented Arterial Blood Pressure 102/93 - Exam CONSTITUTIONAL: Appears agitated this morning, no acute distress RESPIRATORY: Lungs sounds diminished bilaterally, left greater than right. Respirations even, nonlabored. Currently on room air with oxygen saturation 95%. Able to achieve 2500 mL on incentive spirometry. Strong cough. CARDIOVASCULAR: S1, S2 present. Regular rate and rhythm, sinus rhythm on telemetry. Palpable peripheral pulses bilaterally. No edema present. No calf pain or tenderness noted. SCDs present. GASTROINTESTINAL: Abdomen soft, nontender, nondistended. Active bowel sounds present 4 quadrants. Tolerating diet. Positive bowel movement 02/15 GENITOURINARY: Neely discontinued this morning, 3450 mL in the last 24 hours INTEGUMENTARY: Skin is warm and dry with evidence of good perfusion. Thoracic incision well approximated and covered with dry intact dressing. NEUROLOGIC: Cranial nerves II through XII intact MUSKULOSKELETAL: Able to move all extremities, strength equal bilaterally, gait normal PSYCHIATRIC: Alert and oriented to person place and time, appropriate affect, intact judgment and insight INVASIVE LINES AND TUBES: Left pleural chest tubes present to waterseal, airleak this morning, 200 mL serosanguineous drainage in the last 24 hours - Allied health notes Allied health notes reviewed: nursing - Labs CBC & Chem 7: 02/18/25 05:04 02/18/25 05:04 Labs: Abnormal Lab Results - Last 24 Hours (Table) 02/18/25 02/18/25 Range/Units 05:04 05:04 RBC 3.43 L (4.40-5.60) 10*6/uL Hgb 10.8 L (13.0-17.0) g/dL Hct 33.0 L (39.6-50.0) % Sodium 133 L (137-145) mmol/L Carbon Dioxide 32 H (22-30) mmol/L Glucose 105 H (74-99) mg/dL - Imaging and Cardiology Chest x-ray: report reviewed, image reviewed Assessment and Plan Assessment: Lung cancer of the left upper lobe, biopsy proven invasive pulmonary adenocarcinoma with focal micropapillary features, status post video thoracoscopy, left thoracotomy, lysis of pleural adhesions, left upper lobectomy, mediastinal lymph node dissection, cryoablation left intercostal nerves, final pathology consistent with invasive moderately differentiated acinar pulmonary adenocarcinoma Left shoulder pain, patient admittedly had history of with treatment by physical therapy, likely from OR positioning History of hypertension Obstructive sleep apnea without home CPAP use Osteoarthritis Prostate disorder Back and neck surgery on chronic morphine for pain for 18 years ADHD Current tobacco dependence (patient states quit in July 2024 but daughter says still smoking) Daily marijuana use Plan: Will DC chest tube Continue current medication regimen Encourage incentive spirometry use 10 times every hour while awake, bronchodilators per pulmonology Will monitor daily labs and x-rays, electrolyte replacement per protocol GI/DVT prophylaxis Pain control per current medication regimen. Epidural discontinued yesterday per anesthesiology, IV Dilaudid added to pain regimen Increase activity, ambulate as tolerated Neely catheter discontinued, may bladder scan and straight catheter greater than 300 mL residual Will transfer out of ICU Likely will discharge to home tomorrow More recommendations to follow
[2025-02-18] MEDS: HYDROmorphone 2 MG/ML 1 ML SYRINGE IVP STA (11:36)
--- NOTE | 2025-02-18 12:04 | P.PN ---
Subjective Progress Note Date: 02/18/25 Principal diagnosis: Lung cancer. This is a 64-year-old white male, [id number] smoking history, quit smoking in July of 2024, history of chronic back pain and multiple back surgeries, patient was supposed to have cervical spine surgery, prior to the surgery, workup was done including a chest x-ray that showed a left upper lobe nodule. Patient had a CT of the chest and he was found to have a 2.9 x 2.4 cm nodule in the left upper lobe spiculated highly suspicious for bronchogenic carcinoma. There was another 0.9 x 0.7 noncalcified nodule in the left lower lobe. Patient had borderline mediastinal adenopathy but no hypermetabolic activity. Findings were clearly highly suspicious for bronchogenic carcinoma patient had a PET scan, and he underwent robotic Ion bronchoscopy and biopsy, this was done on 01/02/2025, patient was discovered to have atypical cells consistent with non- small cell lung carcinoma. Lymph node aspirations including station 10L and 7 were negative for malignancy. Hence patient was referred to Dr. Umanzor and yesterday the patient underwent Video thoracoscopy, left thoracotomy, lysis of pleural adhesions, left upper lobectomy, mediastinal lymph node dissection, cryoablation left intercostal nerves.. His immediate postoperative course was uneventful patient was admitted to the ICU and I was asked to see him on consultation. I am seeing the patient today in the ICU, he is on room air, does not seem to be in any distress, however he does have abnormal chest x-ray showing fairly large left-sided pneumothorax with chest tube in place and he has air leak. Thoracic surgery is aware of the findings on the chest x-ray and at this point not recommending any further intervention. Labs showed WBC count of 14.6 hemoglobin 12.4 electrolytes are normal renal profile is normal Patient was seen today on 02/15/2024, patient remains in the ICU, doing fairly well, not in any distress, no cough no wheezing no chest pain no shortness of br eath, continues to have fairly good sized left-sided pneumothorax, achieving 2500 cc on incentive spirometry, continues to have chest tube in place on wall suction today, and he does have airleak, patient has been ambulating in the hallway with out any difficulty. WBC count is 9.9 hemoglobin 11.4 electrolytes are normal renal profile is normal Patient was seen today on 02/15/2025, remains in the ICU, on room air, not in any distress, continues to have airleak from his left-sided chest tube/Pleur-evac, patient is now on waterseal, continues to have epidural catheter in place, pain is fairly well-controlled 02/12. Patient slept well last night, he is already ambulating in the room with minimal assistance. WBC count is 9.96 hemoglobin 11.7 electrolytes are normal renal profile is normal chest x-ray was reviewed continues to have left-sided pneumothorax and again there is ongoing airleak n oted. Progress note dated February 16, 2025. 64-year-old male seen today in room 256. Currently, the patient is on room air. Saturations are 97%. He is postoperative day #4, status post left upper l obectomy, and mediastinal lymph node dissection. The patient is sitting in the chair next to his hospital bed. He is not receiving any IV fluids. The patient has a history of non-small cell lung cancer. White count 9.06, hemoglobin 10.3, hematocrit 30.8, and platelet count 283,000. Sodium 132, potassium 4.6, chlorides 100, CO2 30, BUN 18, creatinine 0.73. Glucose is 98. The patient's chest x-ray shows an ongoing moderate-sized left pneumothorax, currently measuring 7.1 cm versus 6.5 cm from the previous x-ray. Progress note dated February 17, 2025. 64-year-old male seen today in room 256. The patient is postoperative day #5, status post left upper lobectomy and mediastinal lymph node dissection. He is sitting in the chair next to the hospital bed. Left chest tube is still in place. He still has a leak. There is a left apical pneumothorax, moderate in size. The patient has no specific complaints. White count was 9.43, hemoglobin 10.4, hematocrit 31.2, and platelet count 283,000. Sodium 133, potassium 5, chloride 99, CO2 33, anion gap 1, BUN 20, creatinine 0.92. Glucose is 120. Calcium is 8.7. Progress note dated February 18, 2025. 64-year-old male seen today in room 256. He is sitting in the chair next to the hospital bed. He is on room air. He is not receiving any IV fluids. He still has a left chest tube in place. Chest x-ray does show residual left-sided p neumothorax. Today however, there is no leak. The chest tube was no longer to suction but to waterseal. Current laboratory data includes a white count of 8.6, hemoglobin 10.8, hematocrit 33, and a platelet count of 307,000. Sodium 133, potassium 4.7, chlorides 98, CO2 32, BUN 18, creatinine 0.83. Glucose was 105. Calcium 9.1. Pathology reports show all lymph nodes to be negative. This includes station 8L, 10L, 11L, 6L, 5L, and station 7 lymph node. In addition, the primary malignancy was invasive moderately differentiated pulmonary adenocarcinoma, and the margins were negative for malignancy. Objective - Vital Signs Vital signs: Vital Signs Temp 96.8 F L 02/18/25 08:00 Pulse 76 02/18/25 11:51 Resp 15 02/18/25 10:00 BP 151/91 02/18/25 10:00 Pulse Ox 100 02/18/25 09:00 FiO2 Intake & Output 02/17/25 02/18/25 02/18/25 18:59 06:59 18:59 Intake Total 1460 Output Total 1665 2040 60 Balance - -2039 -60 Weight 113.5 kg Intake: Oral 1460 Output: Chest Tube Drainage 90 115 15 Chest Tube Left 90 115 15 Urine 1575 1925 45 Other: Voiding Method Indwelling Catheter Indwelling Catheter Indwelling Catheter # Voids 0 ABP, PAP, CO, CI - Last Documented Arterial Blood Pressure 102/93 - Exam No acute distress, oriented 3. HEENT examination is grossly unremarkable. Mucous membranes are moist. No oral lesions. Neck supple. Full range of motion. No adenopathy thyromegaly or neck vein dist ention. Cardiovascular examination reveals regular rhythm rate. S1-S2 normal. No S3 or S4. No discernible murmur noted. Lungs reveal clear breath sounds. Breath sounds are equal bilaterally. No adventitious lung sounds including wheezes rhonchi or crackles. Left-sided chest tube is noted. Abdomen soft bowel sounds are heard. No masses or tenderness. Extremities are intact. No cyanosis clubbing or edema. Skin is without rash or lesion. Neurologic examination is brief but nonfocal. - Labs CBC & Chem 7: 02/18/25 05:04 02/18/25 05:04 Labs: Abnormal Lab Results - Last 24 Hours (Table) 02/18/25 02/18/25 Range/Units 05:04 05:04 RBC 3.43 L (4.40-5.60) 10*6/uL Hgb 10.8 L (13.0-17.0) g/dL Hct 33.0 L (39.6-50.0) % Sodium 133 L (137-145) mmol/L Carbon Dioxide 32 H (22-30) mmol/L Glucose 105 H (74-99) mg/dL Assessment and Plan Assessment: Non-small cell lung cancer/adenocarcinoma, status post left upper lobectomy, mediastinal lymph node dissection, and cryoablation of left intercostal nerves, postoperative day #6. Postoperative left-sided pneumothorax. Benign essential hypertension. Mild COPD. Obstructive sleep apnea syndrome. Degenerative joint disease. Chronic back pain. History of ADHD. Prior history of tobacco use. Plan: Plan dated February 16, 2025. Plan dated February 16, 2025. The patient is seen today in room 256. The patient is doing reasonably well. He is on room air. He is not receiving any IV fluids. Chest x-ray still shows a left-sided pneumothorax. Today is postoperative day #4. Labs, x-rays, and all medications are reviewed. Cardiothoracic surgery would like the patient to remain in intensive care unit patient. Additional recommendations and deluna ggestions are forthcoming. Prognosis is guarded. We will continue to follow. Dictation was produced using [employer] software. Please excuse any grammatical, word or spelling errors. Plan dated February 17, 2025. The patient is seen today in room 256. The patient is on room air. No IV fl uids. Left chest tube remains in place. Today's chest x-ray shows a moderately sized left apical pneumothorax. The patient is otherwise doing reasonably well. Has no specific complaints. He is awake and alert. All labs, x-rays, medications are reviewed. The patient is postoperative day #5. We will continue to follow make recommendations along the way. We encouraged hourly use of the incentive spirometer. Dictation was produced using [employer] software. Please excuse any grammatical, word or spelling errors. Plan dated February 18, 2025. The patient is seen today in room 256. The patient is sitting in a chair next to the hospital bed. He is on room air. He is not receiving any IV fluids. Left chest tube is still in place. There is a left-sided pneumothorax on chest x-ray today. No airleak. The chest tube is to waterseal. The patient will likely have a follow-up chest x-ray later today. All labs, x-rays, medications are reviewed. Today's postoperative day #6. All lymph nodes on sampling, were negative. The margins on the primary tumor removal were free of cancer. We will continue to follow the patient, make recommendations along the way. We recommend ongoing use of the incentive spirometer. Prognosis is thought to be good. Dictation was produced using [employer] dictation software. Please excuse any grammatical, word or spelling errors. Time with Patient: Less than 30
[2025-02-18] MEDS ORDERED: HYDROmorphone 0.5 MG/0.5 ML SYRINGE IVP PRN (12:38)
[2025-02-19 04:29] LABS: HCT 31.9 % (39.6-50.0); HGB 10.6 g/dL (13.0-17.0); MCH 31.9 pg (27.0-32.0); MCHC 33.2 g/dL (32.0-37.0); MCV 96.1 fL (80.0-97.0); Mean Platelet Volume 9.9 fL (9.5-12.2); Platelet Count 317 10*3/uL (140-440); RBC 3.32 10*6/uL (4.40-5.60); RDW 13.2 % (11.5-14.5); WBC 8.83 10*3/uL (4.50-10.00)
[2025-02-19 04:51] LABS: African American GFR (CKD) >90 (>60 ml/min/1.73 sqM); Anion Gap 5 mmol/L; Blood Urea Nitrogen 15 mg/dL (9-20); Carbon Dioxide 30 mmol/L (22-30); Chloride 99 mmol/L (98-107); Glucose 115 mg/dL (74-99); Non-African American GFR(CKD) >90 (>60 ml/min/1.73 sqM); Potassium 4.5 mmol/L (3.5-5.1); Sodium 134 mmol/L (137-145)
--- NOTE | 2025-02-19 07:52 | XR ---
EXAMINATION TYPE: XR chest 2V DATE OF EXAM: 02/19/2025 5:39 AM COMPARISON: 02/18/2025 CLINICAL INDICATION: Male, 64 years old with history of post left upper lobectomy, , TECHNIQUE: PA and lateral views FINDINGS: Heart normal size. Previous cervical fusion hardware redemonstrated. Interval removal of left-sided c hest tube. Left-sided subcutaneous emphysema persists with left-sided skin cassandra as well. Postsurgi jose change of left upper lobectomy redemonstrated. There is an enlarging left-sided pneumothorax. Thi s currently measures 10.5 cm to the apical margin versus 6.4 cm previously. Basilar components now se en as well. No cardiomediastinal shift. Improvement in aeration at the left base. Similar patchy medi al right basilar opacity. Background hyperinflation. DISH mid to lower thoracic spine. IMPRESSION: COPD with postsurgical change left upper lobectomy. Following removal of left-sided chest tube, there is an enlarging left-sided pneumothorax currently measuring 10.5 cm at the apex versus 6.4 cm, previ ously. Basilar component is now seen as well. The lateral view demonstrates a prominent anterior comp onent suggesting a moderate to large pneumothorax. No cardiomegaly mediastinal shift. [facility], , 02/19/2025 7:50 AM
[2025-02-19 08:51] VITALS: BP 140/96; RESP 23; TEMP 98.1
--- NOTE | 2025-02-19 09:44 | P.PN ---
Subjective Progress Note Date: 02/19/25 Principal diagnosis: Lung cancer. This is a 64-year-old white male, [id number] smoking history, quit smoking in July of 2024, history of chronic back pain and multiple back surgeries, patient was supposed to have cervical spine surgery, prior to the surgery, workup was done including a chest x-ray that showed a left upper lobe nodule. Patient had a CT of the chest and he was found to have a 2.9 x 2.4 cm nodule in the left upper lobe spiculated highly suspicious for bronchogenic carcinoma. There was another 0.9 x 0.7 noncalcified nodule in the left lower lobe. Patient had borderline mediastinal adenopathy but no hypermetabolic activity. Findings were clearly highly suspicious for bronchogenic carcinoma patient had a PET scan, and he underwent robotic Ion bronchoscopy and biopsy, this was done on 01/02/2025, patient was discovered to have atypical cells consistent with non- small cell lung carcinoma. Lymph node aspirations including station 10L and 7 were negative for malignancy. Hence patient was referred to Dr. Umanzor and yesterday the patient underwent Video thoracoscopy, left thoracotomy, lysis of pleural adhesions, left upper lobectomy, mediastinal lymph node dissection, cryoablation left intercostal nerves.. His immediate postoperative course was uneventful patient was admitted to the ICU and I was asked to see him on consultation. I am seeing the patient today in the ICU, he is on room air, does not seem to be in any distress, however he does have abnormal chest x-ray showing fairly large left-sided pneumothorax with chest tube in place and he has air leak. Thoracic surgery is aware of the findings on the chest x-ray and at this point not recommending any further intervention. Labs showed WBC count of 14.6 hemoglobin 12.4 electrolytes are normal renal profile is normal Patient was seen today on 02/15/2024, patient remains in the ICU, doing fairly well, not in any distress, no cough no wheezing no chest pain no shortness of br eath, continues to have fairly good sized left-sided pneumothorax, achieving 2500 cc on incentive spirometry, continues to have chest tube in place on wall suction today, and he does have airleak, patient has been ambulating in the hallway with out any difficulty. WBC count is 9.9 hemoglobin 11.4 electrolytes are normal renal profile is normal Patient was seen today on 02/15/2025, remains in the ICU, on room air, not in any distress, continues to have airleak from his left-sided chest tube/Pleur-evac, patient is now on waterseal, continues to have epidural catheter in place, pain is fairly well-controlled 02/12. Patient slept well last night, he is already ambulating in the room with minimal assistance. WBC count is 9.96 hemoglobin 11.7 electrolytes are normal renal profile is normal chest x-ray was reviewed continues to have left-sided pneumothorax and again there is ongoing airleak n oted. Progress note dated February 16, 2025. 64-year-old male seen today in room 256. Currently, the patient is on room air. Saturations are 97%. He is postoperative day #4, status post left upper l obectomy, and mediastinal lymph node dissection. The patient is sitting in the chair next to his hospital bed. He is not receiving any IV fluids. The patient has a history of non-small cell lung cancer. White count 9.06, hemoglobin 10.3, hematocrit 30.8, and platelet count 283,000. Sodium 132, potassium 4.6, chlorides 100, CO2 30, BUN 18, creatinine 0.73. Glucose is 98. The patient's chest x-ray shows an ongoing moderate-sized left pneumothorax, currently measuring 7.1 cm versus 6.5 cm from the previous x-ray. Progress note dated February 17, 2025. 64-year-old male seen today in room 256. The patient is postoperative day #5, status post left upper lobectomy and mediastinal lymph node dissection. He is sitting in the chair next to the hospital bed. Left chest tube is still in place. He still has a leak. There is a left apical pneumothorax, moderate in size. The patient has no specific complaints. White count was 9.43, hemoglobin 10.4, hematocrit 31.2, and platelet count 283,000. Sodium 133, potassium 5, chloride 99, CO2 33, anion gap 1, BUN 20, creatinine 0.92. Glucose is 120. Calcium is 8.7. Progress note dated February 18, 2025. 64-year-old male seen today in room 256. He is sitting in the chair next to the hospital bed. He is on room air. He is not receiving any IV fluids. He still has a left chest tube in place. Chest x-ray does show residual left-sided p neumothorax. Today however, there is no leak. The chest tube was no longer to suction but to waterseal. Current laboratory data includes a white count of 8.6, hemoglobin 10.8, hematocrit 33, and a platelet count of 307,000. Sodium 133, potassium 4.7, chlorides 98, CO2 32, BUN 18, creatinine 0.83. Glucose was 105. Calcium 9.1. Pathology reports show all lymph nodes to be negative. This includes station 8L, 10L, 11L, 6L, 5L, and station 7 lymph node. In addition, the primary malignancy was invasive moderately differentiated pulmonary adenocarcinoma, and the margins were negative for malignancy. Progress note dated February 19, 2025. 64-year-old male seen today in room 256. He is on room air. No IV fluids. He is sitting in the chair next to his hospital bed. The chest tube was removed yesterday. He does not have a leak. Chest x-ray does reveal a persistent left- sided pneumothorax. Current labs include a white count 8.83, hemoglobin 10.6, hematocrit 31.9, platelet count 317,000. Sodium 134, potassium 4.5, chloride 99, CO2 30, BUN 15, creatinine 0.71. Glucose is 115. Calcium is 9. The patient is hoping to be discharged today. Still waiting on cardiothoracic surgery to see him. Objective - Vital Signs Vital signs: Vital Signs Temp 98.1 F 02/19/25 08:00 Pulse 90 02/19/25 08:32 Resp 23 02/19/25 08:00 BP 140/96 02/19/25 08:00 Pulse Ox 95 02/19/25 08:00 FiO2 Intake & Output 02/18/25 02/19/25 02/19/25 18:59 06:59 18:59 Intake Total 240 Output Total 660 1500 375 Balance -660 -1500 -135 Weight 114.5 kg Intake: Oral 240 Output: Chest Tube Drainage 15 Chest Tube Left 15 Urine 645 1500 375 Other: Voiding Method Indwelling Catheter Toilet Toilet # Voids 0 1 1 # Bowel Movements 1 ABP, PAP, CO, CI - Last Documented Arterial Blood Pressure 102/93 - Exam No acute distress, oriented 3. HEENT examination is grossly unremarkable. Mucous membranes are moist. No oral lesions. Neck supple. Full range of motion. No adenopathy thyromegaly or neck vein distention. Cardiovascular examination reveals regular rhythm rate. S1-S2 normal. No S3 or S4. No discernible murmur noted. Lungs reveal clear breath sounds. Breath sounds are equal bilaterally. No adventitious lung sounds including wheezes rhonchi or crackles. Abdomen soft bowel sounds are heard. No masses or tenderness. Extremities are intact. No cyanosis clubbing or edema. Skin is without rash or lesion. Neurologic examination is brief but nonfocal. - Labs CBC & Chem 7: 02/19/25 03:41 02/19/25 03:41 Labs: Abnormal Lab Results - Last 24 Hours (Table) 02/19/25 02/19/25 Range/Units 03:41 03:41 RBC 3.32 L (4.40-5.60) 10*6/uL Hgb 10.6 L (13.0-17.0) g/dL Hct 31.9 L (39.6-50.0) % Sodium 134 L (137-145) mmol/L Glucose 115 H (74-99) mg/dL Assessment and Plan Assessment: Non-small cell lung cancer/adenocarcinoma, status post left upper lobectomy, mediastinal lymph node dissection, and cryoablation of left intercostal nerves, postoperative day #7. Postoperative left-sided pneumothorax. Benign essential hypertension. Mild COPD. Obstructive sleep apnea syndrome. Degenerative joint disease. Chronic back pain. History of ADHD. Prior history of tobacco use. Plan: Plan dated February 16, 2025. Plan dated February 16, 2025. The patient is seen today in room 256. The patient is doing reasonably well. He is on room air. He is not receiving any IV fluids. Chest x-ray still shows a left-sided pneumothorax. Today is postoperative day #4. Labs, x-rays, and all medications are reviewed. Cardiothoracic surgery would like the patient to remain in intensive care unit patient. Additional recommendations and suggestions are forthcoming. Prognosis is guarded. We will continue to follow. Dictation was produced using [employer] software. Please excuse any grammatical, word or spelling errors. Plan dated February 17, 2025. The patient is seen today in room 256. The patient is on room air. No IV fluids. Left chest tube remains in place. Today's chest x-ray shows a moderately sized left apical pneumothorax. The patient is otherwise doing reasonably well. Has no specific complaints. He is awake and alert. All labs, x-rays, medications are reviewed. The patient is postoperative day #5. We will continue to follow make recommendations along the way. We encouraged hourly use of the incentive spirometer. Dictation was produced using [employer] software. Please excuse any grammatical, word or spelling errors. Plan dated February 18, 2025. The patient is seen today in room 256. The patient is sitting in a chair next to the hospital bed. He is on room air. He is not receiving any IV fluids. Left chest tube is still in place. There is a left-sided pneumothorax on chest x-ray today. No airleak. The chest tube is to waterseal. The patient will likely have a follow-up chest x-ray later today. All labs, x-rays, medications are reviewed. Today's postoperative day #6. All lymph nodes on sampling, were negative. The margins on the primary tumor removal were free of cancer. We will continue to follow the patient, make recommendations along the way. We recommend ongoing use of the incentive spirometer. Prognosis is thought to be good. Dictation was produced using [employer] software. Please excuse any grammatical, word or spelling errors. Plan dated February 19, 2025. The patient is again seen in room 256. The patient is on room air. No IV fluids. The chest tube was removed yesterday. There was no leak. Clinically, the patient is very stable. Labs, x-rays, and medications are reviewed. The chest x-ray does reveal a persistent left-sided pneumothorax. Cardiothoracic surgery has yet to see the patient. Possible discharge later today. We will continue to follow make recommendations along the way. Dictation was produced using [employer] software. Please excuse any grammatical, word or spelling errors. Time with Patient: Less than 30
[2025-02-19 12:53] VITALS: BMI 33.3
--- NOTE | 2025-02-19 14:22 | P.DS ---
Providers Date of admission: 02/12/25 09:48 Expected date of discharge: 02/19/25 Attending physician: Rajat Umanzor Consults: 02/12/25 18:43 Consult Physician Stat Consulting Provider: Ryley Cotto Consult Reason/Comments: machine maintenance mgmt; post lobectomy Do you want consulting provider notified?: Yes 02/16/25 07:37 Consult Physician Routine Consulting Provider: Raphael Madrid Consult Reason/Comments: left shoulder pain Do you want consulting provider notified?: Yes Primary care physician: Michael [facility] Course: FINAL DIAGNOSIS: Lung cancer of the left upper lobe, biopsy proven invasive pulmonary adenocarcinoma with focal micropapillary features, final pathology consistent with invasive moderately differentiated acinar pulmonary adenocarcinoma Left shoulder pain, patient admittedly had history of with treatment by physical therapy, likely from OR positioning History of hypertension Obstructive sleep apnea without home CPAP use Osteoarthritis Prostate disorder Back and neck surgery on chronic morphine for pain for 18 years ADHD Current tobacco dependence (patient states quit in July 2024 but daughter says still smoking) Daily marijuana use PRINCIPAL PROCEDURE: Video thoracoscopy Left thoracotomy Lysis of pleural adhesions Left upper lobectomy Mediastinal lymph node dissection Cryoablation left intercostal nerves. HISTORY OF PRESENT ILLNESS: This is a 64-year-old gentleman who follows outpatient with Dr. Recinos for internal medicine. He was referred to Dr. Umanzor by Dr. Rios for newly diagnosed carcinoma of the left upper lobe. He had a 2+ centimeter mass in the left upper lobe fairly peripherally which lit up on PET. In addition he had 2 other small lung nodules in the left lung, 1 in the upper and 1 in the lower lobe, neither of which lit up on PET. There was no evidence of mediastinal uptake on PET nor distant metastasis. Bronchoscopy with biopsy and EBUS were performed, EBUS was negative, biopsy of the tumor was positive for non-small cell carcinoma consistent with invasive pulmonary adenocarcinoma. He was recommended to undergo robotic assisted thoracoscopic left upper lobectomy with possible open thoracotomy. The usual perioperative course was discussed in detail with the patient, all risks and benefits were explained, all questions were answered, and consent was obtained to proceed with surgery. The patient was scheduled for surgery at the earliest possible date. HOSPITAL COURSE: The patient was brought to the hospital on 02/12/25, taken to the preoperative area, prepared in the usual fashion, and subsequently taken to the operating room where Dr. Umanzor initially performed a video thoracoscopy but needed to convert to open left thoracotomy for left upper lobectomy. Upon completion of surgery the patient was extubated and transferred to the cardiovascular intensive care unit where he was recovered and monitored hemodynamically. He continued to have continuous and then intermittent airleak in his chest tube. Once consistently on waterseal and no airleak was present the chest tube was discontinued without incident. Transfer orders were placed for 3 S. cardiac stepdown unit, however there was no bed availability and the patient remained on ICU as a stepdown patient until discharge. His oxygen was titrated down, he was seen by physical and occupational therapy, he was tolerating oral diet, his surgical pain was mostly controlled, repeat chest x- ray was stable, and he was ready to be discharged to home on postoperative day #7. He received written and verbal instruction regarding his medications, activity restrictions, signs and symptoms requiring physician notification, and follow-up appointments. Patient Condition at Discharge: Stable Plan - Discharge Summary Discharge Rx Participant: Yes New Discharge Prescriptions: New methocarbamoL [Robaxin] 1,000 mg PO QID #120 tab Sennosides-Docusate Sodium [Senokot-S] 1 each PO BID PRN tab PRN Reason: Constipation Acetaminophen Tab [Tylenol] 650 mg PO Q4HR PRN tab PRN Reason: Fever And/Or Mild Pain Continue Metoprolol Succinate (ER) [Toprol XL] 50 mg PO DAILY Ziprasidone [Geodon] 20 mg PO BID Morphine Sulfate [Jojo] 60 mg PO TID Dextroamphetamine/Amphetamine [Adderall] 20 mg PO DAILY Ibuprofen [Motrin] 800 mg PO DIRECTED PRN PRN Reason: Pain Discharge Medication List Dextroamphetamine/Amphetamine [Adderall] 20 mg PO DAILY 12/31/24 [History] Morphine Sulfate [Jojo] 60 mg PO TID 12/31/24 [History] Ziprasidone [Geodon] 20 mg PO BID 12/31/24 [History] Metoprolol Succinate (ER) [Toprol XL] 50 mg PO DAILY 02/10/25 [History] Ibuprofen [Motrin] 800 mg PO DIRECTED PRN 02/11/25 [History] Acetaminophen Tab [Tylenol] 650 mg PO Q4HR PRN tab 02/18/25 [Rx] Sennosides-Docusate Sodium [Senokot-S] 1 each PO BID PRN tab 02/18/25 [Rx] methocarbamoL [Robaxin] 1,000 mg PO QID #120 tab 02/18/25 [Rx] Follow up Appointment(s)/Referral(s): Ryley Cotto MD [STAFF PHYSICIAN] - 03/10/25 2:30 pm Vikki Winslow NPC [Nurse Practitioner] - 1 Week (Please come see us for staple removal next week when it's convenient for you. Come to the hospital through the main entrance and call when you get here. May call (our [facility] office in the ICU) or Vikki at or Sampson at ) Rajat Umanzor MD [STAFF PHYSICIAN] - 03/05/25 2:00 pm Raphael Madrid DO [Doctor of Osteopathic Medicine] - As Needed Michael Recinos MD [Primary Care Provider] - 1 Week Activity/Diet/Wound Care/Special Instructions: DISCHARGE INSTRUCTIONS: 1. No driving for 2 weeks, or until physician gives their ok. 2. No lifting, pushing, or pulling more than 10 pounds for 2 weeks. The physician will advise of any restriction changes. 3. Continue pain control per as needed orders. Alternate acetaminophen (Tylenol) and ibuprofen (Motrin/Advil) for pain. 4. Continue with incentive spirometry and splinting until otherwise directed by the physician. 5. Leave chest tube dressing for 48 hours. After that, remove all dressings and shower daily. 6. Routine incision care. No powders, lotions, ointments on incisions. 7. Please call surgeon/[facility] for temp greater than 101 F or purulent drainage from incisions. 8. Smoking cessation counseling and program information provided. Quitting smoking is the most important step you can take to improve your health. For additional information and assistance to quit smoking, please call the [place] tobacco quit line (0-198-ITZA-NOW/ ) or online: https://www.[place].gov/community health systems/mcml-so-jomyeiw/chronicdiseases/tobacco/how-to-qu it-tobacco Discharge Disposition: HOME SELF-CARE
--- NOTE | 2025-02-19 14:38 | XR ---
EXAMINATION TYPE: XR chest 1V portable DATE OF EXAM: 02/19/2025 2:21 PM COMPARISON: 02/19/2025 CLINICAL INDICATION: Male, 64 years old with history of left pneumothorax, , FINDINGS: Heart normal size. Subcutaneous emphysema persists on the left along with skin cassandra relating to valorie maria's left upper lobectomy. Underlying moderate to large pneumothorax redemonstrated currently andrew uring 9.9 cm at the apex versus 10.5 cm previously. There are prominent basilar component is similar as well. Some mild patchy opacity remains at the medial right base. Cervical fusion hardware. IMPRESSION: Status post left upper lobectomy with fairly similar moderate to large left-sided pneumothorax. Curre ntly 9.9 cm from the apex versus 10.5 cm, previously. Prominent basilar component remains as well. [facility], , 02/19/2025 2:35 PM
--- NOTE | 2025-02-19 15:22 | P.PN ---
Subjective Progress Note Date: 02/19/25 Principal diagnosis: Lung cancer of the left upper lobe, biopsy proven invasive pulmonary adenocarcinoma with focal micropapillary features. Medical history significant for hypertension, obstructive sleep apnea without home CPAP use, osteoarthritis, prostate disorder, back and neck surgery on chronic morphine for pain, ADHD, current tobacco dependence (patient states quit in July 2024 but daughter says still smoking), daily marijuana use POD #7 video thoracoscopy, left thoracotomy, lysis of pleural adhesions, left upper lobectomy, mediastinal lymph node dissection, cryoablation left intercostal nerves. The patient was seen and examined at his bedside in the intensive care unit today February 19, 2025. He is currently sitting up to the bedside chair, is awake, alert, oriented x 3 and is in no acute apparent distress. The patient denies any complaints of shortness of breath at this time, although is complaining of some surgical type pain, currently rating his pain 7 out of 10 on the pain scale. The patient is anxious to be discharged home. Dr. Noé albrecht ssed the pathology result findings with the patient yesterday February 18, 2025. Oxygen saturations are 94% on room air and he is achieving 2000 mL on his incentive spirometry with encouragement. Bedside telemetry is showing normal sinus rhythm heart rate 74 bpm. He remains hemodynamically stable and is currently on no inotropic or pressor support. Left pleural chest tube was removed yesterday without incident. Chest x-ray results reviewed, with chest x- ray showing moderate size left-sided pneumothorax. Objective - Vital Signs Vital signs: Vital Signs Temp 97.1 F L 02/18/25 16:00 Pulse 74 02/19/25 04:00 Resp 22 02/19/25 04:00 BP 146/86 02/19/25 04:00 Pulse Ox 94 L 02/19/25 04:00 FiO2 Intake & Output 02/18/25 02/19/25 02/19/25 18:59 06:59 18:59 Output Total 660 1500 Balance -660 -1500 Weight 114.5 kg Output: Chest Tube Drainage 15 Chest Tube Left 15 Urine 645 1500 Other: Voiding Method Indwelling Catheter Toilet # Voids 0 1 ABP, PAP, CO, CI - Last Documented Arterial Blood Pressure 102/93 - Exam CONSTITUTIONAL: Appears agitated this morning, no acute distress RESPIRATORY: Lungs sounds diminished bilaterally, left greater than right. Respirations even, nonlabored. Currently on room air with oxygen saturation 95%. Able to achieve 2500 mL on incentive spirometry. Strong cough. CARDIOVASCULAR: S1, S2 present. Regular rate and rhythm, sinus rhythm on telemetry. Palpable peripheral pulses bilaterally. No edema present. No calf pain or tenderness noted. SCDs present. GASTROINTESTINAL: Abdomen soft, nontender, nondistended. Active bowel sounds present 4 quadrants. Tolerating diet. Positive bowel movement today 02/19/25. GENITOURINARY: Continues to void, urine output 800 mL in the last 8 hours. INTEGUMENTARY: Skin is warm and dry with no clubbing or cyanosis present. Thoracic incision well approximated and covered with dry intact dressing. Thoracic incision cassandra remain intact. NEUROLOGIC: Cranial nerves II through XII intact. No focal deficits. MUSKULOSKELETAL: Able to move all extremities, strength equal bilaterally, gait normal PSYCHIATRIC: Alert and oriented to person place and time, appropriate affect, intact judgment and insight - Allied health notes Allied health notes reviewed: nursing - Labs CBC & Chem 7: 02/19/25 03:41 02/19/25 03:41 Labs: Abnormal Lab Results - Last 24 Hours (Table) 02/19/25 02/19/25 Range/Units 03:41 03:41 RBC 3.32 L (4.40-5.60) 10*6/uL Hgb 10.6 L (13.0-17.0) g/dL Hct 31.9 L (39.6-50.0) % Sodium 134 L (137-145) mmol/L Glucose 115 H (74-99) mg/dL - Imaging and Cardiology Chest x-ray: report reviewed, image reviewed Assessment and Plan Assessment: Lung cancer of the left upper lobe, biopsy proven invasive pulmonary adenocarcinoma with focal micropapillary features, status post video thoracoscopy, left thoracotomy, lysis of pleural adhesions, left upper lobectomy, mediastinal lymph node dissection, cryoablation left intercostal nerves, final pathology consistent with invasive moderately differentiated acinar pulmonary adenocarcinoma Left shoulder pain, patient admittedly had history of with treatment by physical therapy, likely from OR positioning History of hypertension Obstructive sleep apnea without home CPAP use Osteoarthritis Prostate disorder Back and neck surgery on chronic morphine for pain for 18 years ADHD Current tobacco dependence (patient states quit in July 2024 but daughter says still smoking) Daily marijuana use Plan: Continue current medication regimen. Encourage incentive spirometry use 10 times every hour while awake, bronchodilators per pulmonology. Will monitor daily labs and chest x-rays, electrolyte replacement per protocol. GI/DVT prophylaxis. Pain control per current medication regimen. Increase activity, ambulate as tolerated. Continue to monitor strict and accurate I's and O's, may bladder scan and straight catheter greater than 300 mL residual. May transfer out of ICU to the third floor cardiac stepdown unit when bed available. Likely will discharge to home in the next 24 hours. More recommendations to follow based on patient's clinical course. Time with Patient: Greater than 30
[2025-02-19 15:29] VITALS: PULSE 83
== END 2025-02-19 15:22 | disposition home or self-care (01) | DRG 164 ==
LOC: 2ORMAIN 09:48 → 2SICU 17:58
PROVIDERS: ADMIT Thoracic Surgery (Cardiothoracic Vascular Surgery); ATTEND Thoracic Surgery (Cardiothoracic Vascular Surgery)
PROC: 0BJQ4ZZ Inspection of Pleura, Percutaneous Endoscopic Approach (ICD-10-PCS; 2025-02-12)
PROC: 07T70ZZ Resection of Thorax Lymphatic, Open Approach (ICD-10-PCS; 2025-02-12)
PROC: 01580ZZ Destruction of Thoracic Nerve, Open Approach (ICD-10-PCS; 2025-02-12)
PROC: 0BNP0ZZ Release Left Pleura, Open Approach (ICD-10-PCS; 2025-02-12)
PROC: 3E0T3BZ Introduction of Anesthetic Agent into Peripheral Nerves and Plexi, Percutaneous Approach (ICD-10-PCS; 2025-02-12)
PROC: 0BTG0ZZ Resection of Left Upper Lung Lobe, Open Approach (ICD-10-PCS; principal; 2025-02-12 11:50)
DX: C34.12 Malignant neoplasm of upper lobe, left bronchus or lung (principal); J93.83 Other pneumothorax; J44.9 Chronic obstructive pulmonary disease, unspecified; J94.8 Other specified pleural conditions; I10 Essential (primary) hypertension; G89.18 Other acute postprocedural pain; F17.210 Nicotine dependence, cigarettes, uncomplicated; G47.33 Obstructive sleep apnea (adult) (pediatric); F90.9 Attention-deficit hyperactivity disorder, unspecified type; M19.90 Unspecified osteoarthritis, unspecified site; N42.9 Disorder of prostate, unspecified; G89.29 Other chronic pain; R00.1 Bradycardia, unspecified; Z98.1 Arthrodesis status; Z79.899 Other long term (current) drug therapy; Z79.891 Long term (current) use of opiate analgesic
CPT/HCPCS: 64466; 71045; 71046; 80048; 80053; 85025; 85027; 88305; 88309; 88331; 94640

== ENCOUNTER → 2025-02-25 | Outpatient (CLI) | payer MEDICARE ==
--- NOTE | 2025-02-25 11:41 | XR ---
EXAMINATION TYPE: XR chest 2V DATE OF EXAM: 02/25/2025 11:35 AM COMPARISON: 02/19/2025 CLINICAL INDICATION: Male, 64 years old with history of J93.11 Left Pneumothorax, TECHNIQUE: XR chest 2V view(s) obtained. FINDINGS: The heart size is normal. The pulmonary vasculature is normal. There is a large left apical pneumothorax post lobectomy. Small amount of left lateral basilar pneumo thorax is present. Finding appears slightly less at the left base compared to prior exam. There appea rs to be some subcutaneous air along the left clavicular region present previously. IMPRESSION: 1. Slight improvement with diminished size in left pneumothorax post lobectomy [facility], Workstation: [facility], 02/25/2025 11:39 AM
== END | disposition home or self-care (01) ==
LOC: RADXRMAIN 11:09
PROVIDERS: ATTEND Thoracic Surgery (Cardiothoracic Vascular Surgery)
DX: J93.11 Primary spontaneous pneumothorax (principal)
CPT/HCPCS: 71046

== ENCOUNTER → 2025-03-05 | Outpatient (CLI) | payer MEDICARE ==
--- NOTE | 2025-03-05 16:35 | XR ---
EXAMINATION TYPE: XR chest 2V DATE OF EXAM: 03/05/2025 3:35 PM COMPARISON: 02/25/2025 CLINICAL INDICATION: Male, 64 years old with history of R06.02 SOB: Shortness of breath TECHNIQUE: XR chest 2V views of the chest are obtained. FINDINGS: Essentially stable large left-sided pneumothorax in a patient who is status post lobectomy. Scattered senescent parenchymal changes noted. Hyperinflation compatible with COPD. No evidence for infiltrate. No evidence for atelectasis. Heart size is stable. Mediastinal structures are stable and grossly unremarkable. No evidence for hilar prominence. Degenerative changes dorsal spine. IMPRESSION: 1. Essentially stable large left-sided pneumothorax in a patient who is status post lobectomy. [facility], , 03/05/2025 4:32 PM
== END | disposition home or self-care (01) ==
LOC: RADXRMAIN 15:14
PROVIDERS: ATTEND Internal Medicine
DX: J93.9 Pneumothorax, unspecified (principal); Z90.2 Acquired absence of lung [part of]
CPT/HCPCS: 71046

== ENCOUNTER 2025-03-11 13:07 | Inpatient (IN) | payer MEDICARE ==
--- NOTE | 2025-03-11 14:00 | XR ---
EXAMINATION TYPE: XR chest 2V DATE OF EXAM: 03/11/2025 CLINICAL INDICATION: Male, 64 years old with history of SOB, TECHNIQUE: Frontal and lateral views of the chest are obtained. COMPARISON: Chest x-ray 6 days earlier FINDINGS: Stable moderate to large left-sided pneumothorax upper aspect estimated 40-50%. No new medi astinal shift. More prominent left supraclavicular subcutaneous emphysema noted. Background chronic emphysematous change with left basilar linear scarring redemonstrated. Right lung remains clear. The cardiac silhouette size is stable and within normal limits. Extensive surgical changes cervical spine as partially imaged. IMPRESSION: More prominent left-sided supraclavicular subcutaneous edema. Stable moderate to large si ze superior left-sided pneumothorax. [facility], , 03/11/2025 1:58 PM
--- NOTE | 2025-03-11 15:16 | ED ---
General Adult HPI - General Chief complaint: Shortness of Breath Stated complaint: KVNG Time Seen by Provider: 03/11/25 13:15 Source: patient, RN notes reviewed, old records reviewed Mode of arrival: ambulatory Limitations: no limitations - History of Present Illness Initial comments: This is a 64-year-old male who had a recent normal neck about a week and a half ago. Patient went home with a pneumothorax but patient states that he feels like there is more pressure and way more pain in his back now. Patient was sent in to be evaluated. Patient denies any chest pain. Patient has palpitation. Patient has any fever chills cough. Patient has abdominal pain patient has nausea vomiting diarrhea. - Related Data Home Medications Medication Instructions Recorded Confirmed Dextroamphetamine/Amphetamine 20 mg PO BID 12/31/24 03/11/25 [Adderall] Ziprasidone [Geodon] 20 mg PO BID 12/31/24 03/11/25 Metoprolol Succinate (ER) [Toprol 50 mg PO DAILY 02/10/25 03/11/25 XL] Morphine Sulfate ER [Ms Contin] 60 mg PO Q8H 03/11/25 03/11/25 methocarbamoL [Robaxin] 1,000 mg PO QID PRN 03/11/25 03/11/25 Allergies Allergy/AdvReac Type Severity Reaction Status Date / Time oxytetracycline Allergy Unknown Verified 03/11/25 13:11 [From Terramycin] Penicillins AdvReac Swelling Verified 03/11/25 13:11 Review of Systems ROS Statement: Those systems with pertinent positive or pertinent negative responses have been documented in the HPI. ROS Other: All systems not noted in ROS Statement are negative. Past Medical History Past Medical History: Cancer, Hypertension, Osteoarthritis (OA), Prostate Disorder, Sleep Apnea/CPAP/BIPAP Additional Past Medical History / Comment(s): doesn't use anything for sleep apnea, new dx. lung cancer History of Any Multi-Drug Resistant Organisms: None Reported Past Surgical History: Back Surgery Additional Past Surgical History / Comment(s): neck x3, lower back fusions- morphine for pain sice 18 years, cervical fusion in September 2024, bronchoscopy Past Anesthesia/Blood Transfusion Reactions: No Reported Reaction Additional Past Anesthesia/Blood Transfusion Reaction / Comment(s): no blood transfusions Past Psychological History: ADD/ADHD Smoking Status: Current every day smoker - Past Family History Mother Family Medical History: Cancer Additional Family Medical History / Comment(s): throat General Exam - General Exam Comments Initial Comments: GENERAL: Patient is well-developed and well-nourished. Patient is nontoxic and well- hydrated and is in mild distress. ENT: Neck is soft and supple. No significant lymphadenopathy is noted. Oropharynx is clear. Moist mucous membranes. Neck has full range of motion without eliciting any pain. EYES: The sclera were anicteric and conjunctiva were pink and moist. Extraocular movements were intact and pupils were equal round and reactive to light. Eyelids were unremarkable. PULMONARY: Patient has no breath sounds in the left upper lobe. Patient also has subcu air all throughout his back on the left side CARDIOVASCULAR: There is a regular rate and rhythm without any murmurs gallops or rubs. ABDOMEN: Soft and nontender with normal bowel sounds. No palpable organomegaly was noted. There is no palpable pulsatile mass. SKIN: Skin is clear with no lesions or rashes and otherwise unremarkable. NEUROLOGIC: Patient is alert and oriented x3. Cranial nerves II through XII are grossly intact. Motor and sensory are also intact. Normal speech, volume and content. Symmetrical smile. MUSCULOSKELETAL: Normal extremities with adequate strength and full range of motion. No lower extremity swelling or edema. No calf tenderness. LYMPHATICS: No significant lymphadenopathy is noted PSYCHIATRIC: Normal psychiatric evaluation Limitations: no limitations Course Vital Signs 03/11/25 03/11/25 03/11/25 13:09 14:12 14:14 Temperature 99.1 F Pulse Rate 82 74 Respiratory 22 18 22 Rate Blood Pressure 137/72 141/94 O2 Sat by Pulse 97 96 Oximetry 03/11/25 03/11/25 03/11/25 14:18 15:00 15:43 Temperature Pulse Rate 70 71 Respiratory 22 22 20 Rate Blood Pressure 145/89 131/90 O2 Sat by Pulse 94 L 95 Oximetry 03/11/25 03/11/25 16:00 17:00 Temperature Pulse Rate 70 60 Respiratory 20 20 Rate Blood Pressure 150/100 139/87 O2 Sat by Pulse 98 95 Oximetry Procedures - Chest Tube Insertion Consent Obtained: verbal consent Side of Procedure: left Indication: Other (Thoravent was used) Placed on monitor/pulse oximetry: Yes Site Prep: Chloroprep Local Anesthesia: Lidocaine 1% Insertion Site: Other (Second intercostal space) Tube Size ([place]): Other (Event was used) Returns: Air Sutured in Place: Yes Attached to Suction: Yes Type of Suction: Pleuravac Repeat X-ray Results: Other (Was partially inflated) Patient Tolerated Procedure: well Medical Decision Making - Medical Decision Making As interpreted by myself and EKG shows a sinus rhythm with occasional PVC at 75 bpm CO was 161 QRS is 88 QT interval 376 QTc is 405. Patient's EKG shows no ST segment elevation or depression. Was pt. sent in by a medical professional or institution (TING Ferrer, BAIL BONDING AGENT, urgent care, hospital, or shelter...) When possible be specific @ -No Did you speak to anyone other than the patient for history (EMS, parent, family, police, friend...)? What history was obtained from this source @ -No Did you review nursing and triage notes (agree or disagree)? Why? @ -I reviewed and agree with nursing and triage notes Were old charts reviewed (outside hosp., previous admission, EMS record, old EKG, old radiological studies, urgent care reports/EKG's, shelter records)? Report findings @ -No old charts were reviewed Differential Diagnosis? @ -Differential Chest Pain: Stable Angina, Unstable Angina, STEMI, NSTEMI Aortic Dissection, Pneumothorax, Musculoskeletal, Esophageal Spasm GERD, Cholecystitis, Pancreatitis, Zoster, this is not meant to be an all-inclusive list. EKG interpreted by me (3pts min.). @ -As above X-rays interpreted by me (1pt min.). @ -Chest x-ray shows substantial subcu air. Second portable chest x-ray shows good placement of Thora vent and reduced normal thorax. CT interpreted by me (1pt min.). @ -CT scan of the chest shows good placement of the thoravent U/S interpreted by me (1pt. min.). @ -None done What testing was considered but not performed or refused? (CT, X-rays, U/S, labs)? Why? @ -None What meds were considered but not given or refused? Why? @ -None Did you discuss the management of the patient with other professionals (professionals i.e. TING Ferrer, BAIL BONDING AGENT, lab, RT, psych nurse, social work specialist, luster applicator, teacher, tax revenue officer, case assistant)? Give summary @ -I spoke with [facility] hospitalist agreed admit the patient admit the patient wrote admitting orders Was smoking cessation discussed for >3mins.? @ -No Was critical care preformed (if so, how long)? @ -No Were there social determinants of health that impacted care today? How? (Homelessness, low income, unemployed, alcoholism, drug addiction, transportation, low edu. Level, literacy, decrease access to med. care, residential, rehab)? @ -No Was there de-escalation of care discussed even if they declined (Discuss DNR or withdrawal of care, Hospice)? DNR status @ -No What co-morbidities impacted this encounter? (DM, HTN, Smoking, COPD, CAD, Cancer, CVA, ARF, Chemo, Hep., AIDS, mental health diagnosis, sleep apnea, morbid obesity)? @ -None Was patient admitted / discharged? Hospital course, mention meds given and route, prescriptions, significant lab abnormalities, going to OR and other pertinent info. @ -Initial thoravent was not working properly even though it appeared to be in good placement on the CT scan so a second Thora vent was placed and had much better success and a repeat portable x-ray showed a much decreased pneumothorax Undiagnosed new problem with uncertain prognosis? @ -No Drug Therapy requiring intensive monitoring for toxicity (Heparin, Nitro, Insulin, Cardizem)? @ -No Were any procedures done? @ -No Diagnosis/symptom? @ -Pneumothorax Acute, or Chronic, or Acute on Chronic? @ -Chronic Uncomplicated (without systemic symptoms) or Complicated (systemic symptoms)? @ -Complicate Side effects of treatment? @ -No Exacerbation, Progression, or Severe Exacerbation? @ -No Poses a threat to life or bodily function? How? (Chest pain, USA, PA, pneumonia, PE, COPD, DKA, ARF, appy, cholecystitis, CVA, Diverticulitis, Homicidal, Suicidal, threat to staff... and all critical care pts) @ -Yes this can lead to hypoxia and endorgan dysfunction or tension pneumothorax. - Lab Data Result diagrams: 03/11/25 14:14 03/11/25 14:14 Lab Results 03/11/25 03/11/25 03/11/25 Range/Units 14:14 14:14 14:14 WBC 6.23 (4.50-10.00) 10*3/uL RBC 4.27 L (4.40-5.60) 10*6/uL Hgb 13.5 (13.0-17.0) g/dL Hct 41.2 (39.6-50.0) % MCV 96.5 (80.0-97.0) fL MCH 31.6 (27.0-32.0) pg MCHC 32.8 (32.0-37.0) g/dL Plt Count 325 (140-440) 10*3/uL MPV 10.1 (9.5-12.2) fL Immature Gran % (Auto) 0.2 % Neutrophils % 64.8 % Lymphocytes % 24.4 % Monocytes % 6.4 % Eosinophils % 3.9 % Basophils % 0.3 % Immature Gran # 0.01 (0.00-0.04) 10*3/uL Neutrophils # 4.04 (1.80-7.70) 10*3/uL Lymphocytes # 1.52 (0.90-5.00) 10*3/uL Monocytes # 0.40 (0.20-1.00) 10*3/uL Eosinophils # 0.24 (0.04-0.35) 10*3/uL Basophils # 0.02 (0.00-0.10) 10*3/uL PT 9.9 L (10.0-12.5) sec INR 0.9 (<1.2) APTT 22.7 (22.0-30.0) sec Sodium 138 (137-145) mmol/L Potassium 4.4 (3.5-5.1) mmol/L Chloride 103 (98-107) mmol/L Carbon Dioxide 27 (22-30) mmol/L Anion Gap 8 mmol/L BUN 16 (9-20) mg/dL Creatinine 0.80 (0.66-1.25) mg/dL Est GFR (CKD-EPI)AfAm >90 (>60 ml/min/1.73 sqM) Est GFR (CKD-EPI)NonAf >90 (>60 ml/min/1.73 sqM) Glucose 117 H (74-99) mg/dL Calcium 9.5 (8.4-10.2) mg/dL Total Bilirubin 0.8 (0.2-1.3) mg/dL AST 23 (17-59) U/L ALT 15 (4-49) U/L Alkaline Phosphatase 71 (38-126) U/L Total Protein 6.7 (6.3-8.2) g/dL Albumin 4.1 (3.5-5.0) g/dL Disposition Clinical Impression: Pneumothorax Disposition: ADMITTED IP TO THIS HOSP Referrals: Michael Recinos MD [Primary Care Provider] - 1-2 days Time of Disposition: 18:18
[2025-03-11 15:30] LABS: Basophils # (A) 0.02 10*3/uL (0.00-0.10); Basophils % (A) 0.3 %; Eosinophils # (A) 0.24 10*3/uL (0.04-0.35); Eosinophils % (A) 3.9 %; HCT 41.2 % (39.6-50.0); HGB 13.5 g/dL (13.0-17.0); Lymphocytes # (A) 1.52 10*3/uL (0.90-5.00); Lymphocytes % (A) 24.4 %; MCH 31.6 pg (27.0-32.0); MCHC 32.8 g/dL (32.0-37.0); MCV 96.5 fL (80.0-97.0); Mean Platelet Volume 10.1 fL (9.5-12.2); Monocytes % (A) 6.4 %; Neutrophils # (A) 4.04 10*3/uL (1.80-7.70); Neutrophils % (A) 64.8 %; Platelet Count 325 10*3/uL (140-440); RBC 4.27 10*6/uL (4.40-5.60); RDW 14.1 % (11.5-14.5); WBC 6.23 10*3/uL (4.50-10.00)
[2025-03-11] MEDS: MIDAZOLAM 2 MG/2 ML VIAL IV ONE (15:30)
[2025-03-11] MEDS: HYDROmorphone 0.5 MG/0.5 ML SYRINGE IVP STA ×3 (15:30→17:36)
--- NOTE | 2025-03-11 15:46 | P.GSCN ---
History of Present Illness Consult date: 03/11/25 Reason for Consult: Left pneumothorax, shortness of breath, known to service, status post left video-assisted thoracoscopy, left thoracotomy, lysis of pleural adhesions, left upper lobectomy, cryoablation left intercostal nerves on February 12, 2025. Requesting physician: Mario Welch History of present illness: This is a 64 old gentleman who follows on an outpatient basis with Dr. Michael Recinos for his primary care, and with Dr. Cotto for his pulmonary care. He has a past medical history significant for lung cancer of the left upper lobe, biopsy- proven invasive pulmonary adenocarcinoma with focal micropapillary features, final pathology consistent with invasive moderately differentiated acinar pulmonary adenocarcinoma, hypertension, obstructive sleep apnea without home CPAP use, prostate disorder, osteoarthritis, back and neck surgery on chronic morphine for pain for 18 years, ADHD, obesity with a BMI of 33.6 kg/m, current tobacco dependence in the form of vaping and marijuana use. The patient presen jassi to the emergency department here at [facility] today with complaints of shortness of breath, gurgling feeling to his left chest and complaints of a collection of air surrounding his incision. He denies any fever, chills, nausea, vomiting, diarrhea, constipation, hemoptysis, hematemesis, drainage from incision, headache, chest pain or chest pressure. He does state that he has chronic back pain. The patient was seen in follow-up as an outpatient on March 05, 2025, and a chest x-ray was completed which demonstrated an essentially stable large left-sided pneumothorax, status post left upper lobectomy. Incisions at that time were clean, dry and without drainage. The patient was asked to follow-up on Sunday, March 09, 2025, although was a no-show. Subsequently, the patient called this morning 03/11/2025 with complaints of gurgling feeling to his left chest, shortness of breath with activity and air collection surrounding his incision. He was recommended at that time to present to the emergency department for further evaluation and treatment recommendations. A chest x-ray was completed which showed a more prominent left-sided supraclavicular subcutaneous emphysema, and stable moderate to large size superior left-sided pneumothorax. On evaluation the patient was found to have a large amount of subcutaneous emphysema surrounding his thoracotomy incision. Dr. Umanzor was consulted for further evaluation and treatment recommendations. Dr. Umanzor recommended placement of left Thoravent connected to low continuous wall suction -20 cm H2O. Review of Systems A review of systems was completed and was negative except as mentioned in the HPI. Past Medical History Past Medical History: Cancer, Hypertension, Osteoarthritis (OA), Prostate Disorder, Sleep Apnea/CPAP/BIPAP Additional Past Medical History / Comment(s): doesn't use anything for sleep apnea, new dx. lung cancer History of Any Multi-Drug Resistant Organisms: None Reported Past Surgical History: Back Surgery Additional Past Surgical History / Comment(s): neck x3, lower back fusions- morphine for pain sice 18 years, cervical fusion in September 2024, bronchoscopy, left upper lobe, biopsy-proven invasive pulmonary adenocarcinoma with focal micropapillary features, final pathology consistent with invasive moderately differentiated acinar pulmonary adenocarcinoma Past Anesthesia/Blood Transfusion Reactions: No Reported Reaction Additional Past Anesthesia/Blood Transfusion Reaction / Comm: no blood transfusions Past Psychological History: ADD/ADHD Smoking Status: Current every day smoker, Vaper Past Alcohol Use History: None Reported Past Drug Use History: Marijuana - Past Family History Mother Family Medical History: Cancer Additional Family Medical History / Comment(s): throat Medications and Allergies Home Medications Medication Instructions Recorded Confirmed Type Dextroamphetamine/Amphetamine 20 mg PO DAILY 12/31/24 02/10/25 History [Adderall] Morphine Sulfate [Jojo] 60 mg PO TID 12/31/24 02/10/25 History Ziprasidone [Geodon] 20 mg PO BID 12/31/24 02/10/25 History Metoprolol Succinate (ER) [Toprol 50 mg PO DAILY 02/10/25 02/10/25 History XL] Ibuprofen [Motrin] 800 mg PO DIRECTED PRN 02/11/25 02/11/25 History Acetaminophen Tab [Tylenol] 650 mg PO Q4HR PRN tab 02/18/25 Rx Sennosides-Docusate Sodium 1 each PO BID PRN tab 02/18/25 Rx [Senokot-S] methocarbamoL [Robaxin] 1,000 mg PO QID #120 tab 02/18/25 Rx Allergies Allergy/AdvReac Type Severity Reaction Status Date / Time oxytetracycline Allergy Unknown Verified 03/11/25 13:11 [From Terramycin] Penicillins AdvReac Swelling Verified 03/11/25 13:11 Surgical - Exam Vital Signs Temp Pulse Resp BP Pulse Ox 99.1 F 82 22 137/72 97 03/11/25 13:03/11/25 13:03/11/25 13:03/11/25 13:03/11/25 13:09 - General well developed, well nourished, no distress, no pain, chronically ill, obese - Eyes PERRL, normal ocular movement, no pale, no icteric - ENT normal pinna, normal nares, normal mucosa, no hearing loss, no congestion - Neck Neck is supple, no lymphadenopathy. no masses, no bruits, trachea midline, no venous distension - Respiratory No breath sounds to his left upper lobe, essentially clear to his right lobes, subcutaneous emphysema present to his left chest surrounding his thoracotomy incision, and to his left upper chest. No wheezes, rhonchi or crackles. - Cardiovascular Regular rhythm and rate, S1 and S2 present, negative for S3, gallop or murmur. - Abdomen Abdomen is soft, nontender and nondistended. Active bowel sounds present all 4 abdominal quadrants. No guarding or rigidity. No organomegaly appreciated. - Genitourinary Deferred - Rectum Deferred - Integumentary Skin is warm and dry. No clubbing or cyanosis is present. Left thoracotomy incision is clean, dry and intact. No redness or drainage present. no rash, no growths, no abnormal pigmentation - Neurologic No focal deficits. normal coordination - Musculoskeletal Moves all 4 extremities with equal strength bilateral. - Psychiatric oriented to time, oriented to person, oriented to place, speech is normal, memory intact Results - Imaging Chest x-ray: report reviewed, image reviewed Assessment and Plan Assessment: Left-sided pneumothorax with subcutaneous emphysema Lung cancer of the left upper lobe, biopsy proven invasive pulmonary adenocarcinoma with focal micropapillary features, final pathology consistent with invasive moderately differentiated acinar pulmonary adenocarcinoma History of hypertension Obstructive sleep apnea without home CPAP use Osteoarthritis Prostate disorder Back and neck surgery on chronic morphine for pain for 18 years ADHD Current tobacco dependence (patient states quit in July 2024 but daughter says still smoking) Daily marijuana use Plan: The patient was seen and examined at his bedside in the emergency department. His chart and diagnostics were reviewed. His case was discussed in detail with Dr. Rajat Umanzor from cardiothoracic surgery. Dr. Umanzor's recommendations are to place a left Thoravent, and connected to low continuous wall suction -20 cm H2O. Continue to monitor daily checks x-rays for resolution of pneumothorax and subcutaneous emphysema. Encourage use of incentive spirometry 10 times every hour while awake. Continue Robaxin for pain control we will also start on some Toradol for additional pain control. Consult Dr. Guan from pulmonary medicine. Medical management of other comorbidities per primary care and pulmonary care services. More recommendations to follow based on patient's clinical course. Thank you Dr. Welch for this consult and we look forward to working with this patient. I have personally seen and examined the patient, performed the documentation and the assessment and plan as written. Number of minutes spent on the visit: 30. SASKIA Ocampo
[2025-03-11 15:47] LABS: ALT 15 U/L (4-49); AST 23 U/L (17-59); African American GFR (CKD) >90 (>60 ml/min/1.73 sqM); Albumin 4.1 g/dL (3.5-5.0); Alkaline Phosphatase 71 U/L (38-126); Anion Gap 8 mmol/L; Blood Urea Nitrogen 16 mg/dL (9-20); Calcium 9.5 mg/dL (8.4-10.2); Carbon Dioxide 27 mmol/L (22-30); Chloride 103 mmol/L (98-107); Glucose 117 mg/dL (74-99); Non-African American GFR(CKD) >90 (>60 ml/min/1.73 sqM); Potassium 4.4 mmol/L (3.5-5.1); Sodium 138 mmol/L (137-145); Total Bilirubin 0.8 mg/dL (0.2-1.3); Total Protein 6.7 g/dL (6.3-8.2)
[2025-03-11] MEDS ORDERED: ACETAMINOPHEN TAB 325 MG TAB PO PRN (15:48)
[2025-03-11 15:50] LABS: INR 0.9 (<1.2); Partial Thromboplastin Time 22.7 sec (22.0-30.0); Prothrombin Time 9.9 sec (10.0-12.5)
[2025-03-11] MEDS: KETOROLAC 15 MG/ML 1 ML VIAL IVP STA (16:18)
--- NOTE | 2025-03-11 16:18 | XR ---
EXAMINATION TYPE: XR chest 1V portable DATE OF EXAM: 03/11/2025 3:58 PM COMPARISON: Chest radiographs from earlier today TECHNIQUE: XR chest 1V portable Portable AP radiograph of the chest. CLINICAL INDICATION:Male, 64 years old with history of chest tube plac; FINDINGS: Lungs/Pleura: No pleural effusion. Right lung is clear. Background emphysematous changes. Similar mod erate to large left-sided pneumothorax with regions of atelectatic lung. Enteral placement of left pl eural catheter in the left upper lung. Postsurgical changes from left lobectomy. Pulmonary vascularity: Unremarkable. Heart/mediastinum: Cardiomediastinal silhouette is prominent in size. No mediastinal shift. Musculoskeletal: No acute osseous pathology. Anterior and posterior cervical hardware identified. Other findings: Redemonstration of left supraclavicular and chest wall subcutaneous emphysema. IMPRESSION: Persistent moderate to large left-sided pneumothorax with interval placement of pleural catheter. Sim ilar left-sided supraclavicular and chest wall subcutaneous emphysema. [facility], , 03/11/2025 4:15 PM
--- NOTE | 2025-03-11 16:40 | CT ---
EXAMINATION TYPE: CT chest wo con DATE OF EXAM: 03/11/2025 COMPARISON: 01/01/2020 CLINICAL INDICATION: Male, 64 years old with history of Thoravent placement; PH[facility], Thoracent placement . Unable to raise left arm. TECHNIQUE: CT scan of the thorax is performed without IV contrast. CT DLP: 542.[address] CTDI: mGy Automated exposure control for dose reduction was used. FINDINGS: There is a left sided thoracic vent the tip of which is in the left lateral upper thorax. There is a large left pneumothorax with suggestion of slight shift mediastinum to the right. Mild emphysematous changes in the right lung but the right lung is clear without suspicious mass, nod ule or airspace consolidation. The great vessels and chest are normal. Limited scanning through the upper abdomen reveals no definite abnormality. There are no focal osseous lesions. IMPRESSION: 1. Left sided thoracic vent tip in the lateral upper left thorax. 2. Large left pneumothorax with suggestion of slight shift of the mediastinum to the right indicating possible tension pneumothorax. [facility], Workstation: [id number] 03/11/2025 4:38 PM
[2025-03-11] MEDS: KETOROLAC 15 MG/ML 1 ML VIAL IVP SCH (17:19)
[2025-03-11] MEDS: LIDOCAINE 1% INJ 10MG/ML (20 ML MDV) SQ ONE (17:36)
--- NOTE | 2025-03-11 18:02 | XR ---
EXAMINATION TYPE: XR chest 1V portable DATE OF EXAM: 03/11/2025 5:56 PM COMPARISON: Chest radiographs from 03/11/2025. CLINICAL INDICATION: Male, 64 years old with history of Short of breath; [facility] TECHNIQUE: XR chest 1V portable Frontal view of the chest. FINDINGS: Lungs/Pleura: There is no evidence of pleural effusion, focal consolidation, or right pneumothorax. Pulmonary vascularity: Unremarkable. Heart/mediastinum: Cardiomediastinal silhouette is unremarkable. Musculoskeletal: No acute osseous pathology. There is fixation hardware in the lower cervical spine. Other findings: None Lines/Tubes: Left thoracotomy tube in place with decrease in left pneumothorax. IMPRESSION: Left thoracotomy tube in place with decrease in size of left pneumothorax. [facility], , 03/11/2025 5:59 PM
[2025-03-12] MEDS: MORPHINE SULFATE ER 60 MG TABLET PO SCH (00:15)
--- NOTE | 2025-03-12 06:22 | XR ---
EXAMINATION TYPE: XR chest 1V portable DATE OF EXAM: 03/12/2025 CLINICAL INDICATION: Male, 64 years old with history of Left pneumothorax, progress study. TECHNIQUE: Single AP portable upright view of the chest is obtained. COMPARISON: Chest x-ray from one day earlier FINDINGS: Persistent left apical chest tube with small to moderate sized left apical pneumothorax sh owing continued improvement from most recent study. Overlying left supraclavicular subcutaneous emphy sema is redemonstrated. Background chronic emphysematous change with diffuse left lung increased opacity is redemonstrated. R ight lung remains clear. Cardiac silhouette size stable and upper limits of normal. Stable some left- sided volume loss with mediastinal shift. Extensive surgical change to the cervical spine is partiall y imaged similar to prior. IMPRESSION: Persistent but improved small to moderate sized left apical pneumothorax with left apical chest tube in place. Persistent diffuse left lung acute infiltrates and/or atelectasis. [facility], , 03/12/2025 6:20 AM
--- NOTE | 2025-03-12 07:06 | P.CNPUL ---
History of Present Illness Consult date: 03/12/25 Requesting physician: Imer Stele Reason for consult: pneumothorax Chief complaint: Shortness of breath History of present illness: This is a 64-year-old white male with past medical history significant for tobacco dependence, COPD, obstructive sleep apnea without home CPAP, osteoarthritis, chronic back pain. His primary care provider is Dr. Michael Recinos. He also follows in the pulmonary office with Dr. Cotto. Of note, patient recently found to have a 2.9 x 2.4 cm left upper lobe spiculated nodule that was highly suspicious for bronchogenic carcinoma. There is an additional 0.9 x 0.7 cm noncalcified nodule in the left lower lobe. Subsequently, underwent Ion bronchoscopy and biopsy on 01/02/2025. Findings consistent was non-small cell lung carcinoma. He was referred to cardiothoracic surgery. He did undergo a video-assisted thorascopic surgery with lysis of pleural adhesions , left upper lobectomy, and mediastinal lymph node dissection on . Had a relatively uneventful postoperative course. 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 Margins negative for malignancy. 3 hilar lymph nodes negative for metastasis. Presented to the emergency department yesterday with a chief complaint of increased shortness of breath, gurgling coming from his left chest at the previous incision site, and increased left-sided chest pain. Chest x-ray showing a more prominent left-sided pneumothorax with associated subcutaneous emphysema. Patient did have a left chest ThoraVent placed by the cardiothoracic team. Repeat chest x-ray showing improvement in the left-sided pneumothorax. Patient currently being evaluated on the general medical floor. He is sitting up in bed without any distress. On room air. Reporting significant amount of left lateral/posterior back pain. Continues to have some subcutaneous emphysema at the previous surgical incision site. His ThoraVent is attached to an atrium with -20 cm H2O suction. There is an intermittent airleak. Incentive spirometer is at bedside. CBC from admission unremarkable. CMP also unremarkable, electrolytes WDL, creatinine 0.8, glucose 117. Current vital sig ns: Afebrile, heart rate 64 bpm, blood pressure 143/81 mmHg, nontachypneic, SpO2 recorded at 93% on room air. Review of Systems REVIEW OF SYSTEMS: CONSTITUTIONAL: Denies any recent significant weight loss or weight gain. EYES: Denies change in vision. EARS, NOSE, MOUTH, THROAT: Denies headaches, denies sore throat. CARDIOVASCULAR: Denies chest pain, palpitations or syncopal episodes. RESPIRATORY: Reports increased work of breathing which is improved since ThoraVent placement. No significant coughing, sputum production, hemoptysis. GASTROINTESTINAL: Denies change in appetite, abdominal pain, nausea and vomiting, or diarrhea GENITOURINARY: Denies hematuria, denies infections. MUSKULOSKELETAL: Reports chronic lumbar and cervical level back pain. INTEGUMENTARY: Denies rash, denies eczema. NEUROLOGICAL: Denies recent memory loss, no recent seizure activity. PSYCHIATRIC: Denies anxiety, denies depression. HEMATOLOGIC/LYMPHATIC: Denies anemia, denies enlarged lymph node Past Medical History Past Medical History: Cancer, Hypertension, Osteoarthritis (OA), Prostate Disorder, Sleep Apnea/CPAP/BIPAP Additional Past Medical History / Comment(s): new dx. lung cancer 2024 History of Any Multi-Drug Resistant Organisms: None Reported Past Surgical History: Back Surgery Additional Past Surgical History / Comment(s): neck x3, lower back fusions- morphine for pain sice 18 years, cervical fusion in September 2024, bronchoscopy, left lobectomy Past Anesthesia/Blood Transfusion Reactions: No Reported Reaction Additional Past Anesthesia/Blood Transfusion Reaction / Comment(s): no blood transfusions Past Psychological History: ADD/ADHD Additional Psychological History / Comment(s): takes geodon for temper Smoking Status: Current every day smoker, Never smoker Past Alcohol Use History: None Reported Additional Past Alcohol Use History / Comment(s): 2023 quit smoking cigarettes, 1 1/2ppd for 50 yrs. smokes marijuana every day Past Drug Use History: Marijuana Additional Drug Use History / Comment(s): edibles , knows to not have marijuana 24 hours prior to procedure - Past Family History Mother Family Medical History: Cancer Additional Family Medical History / Comment(s): throat Medications and Allergies Home Medications Medication Instructions Recorded Confirmed Type Dextroamphetamine/Amphetamine 20 mg PO BID 12/31/24 03/11/25 History [Adderall] Ziprasidone [Geodon] 20 mg PO BID 12/31/24 03/11/25 History Metoprolol Succinate (ER) [Toprol 50 mg PO DAILY 02/10/25 03/11/25 History XL] Morphine Sulfate ER [Ms Contin] 60 mg PO Q8H 03/11/25 03/11/25 History methocarbamoL [Robaxin] 1,000 mg PO QID PRN 03/11/25 03/11/25 History Allergies Allergy/AdvReac Type Severity Reaction Status Date / Time oxytetracycline Allergy Unknown Verified 03/11/25 13:11 [From Terramycin] Penicillins AdvReac Swelling Verified 03/11/25 13:11 Physical Exam Vitals: Vital Signs Temp Pulse Pulse Resp BP BP Pulse Ox 03/12/25 01:29 98.7 F 64 18 143/81 93 L 03/11/25 22:39 97.6 F 66 18 152/82 96 03/11/25 22:08 98.5 F 61 18 155/94 98 03/11/25 20:51 61 18 147/85 96 03/11/25 19:39 66 18 131/85 94 L 03/11/25 17:00 60 20 139/87 95 03/11/25 16:00 70 20 150/100 98 03/11/25 15:43 71 20 131/90 95 03/11/25 15:00 70 22 145/89 94 L 03/11/25 14:18 22 03/11/25 14:14 22 03/11/25 14:12 74 18 141/94 96 03/11/25 13:09 99.1 F 82 22 137/72 97 Intake and Output 03/11/25 03/11/25 03/12/25 14:59 22:59 06:59 Intake Total 240 Balance 240 Intake: Oral 240 Other: Weight 115.666 kg 115.666 kg GENERAL EXAM: Alert, 64-year-old male, on room air, fairly comfortable in no apparent distress. HEAD: Normocephalic and atraumatic EYES: Normal reaction of pupils, equal size. NOSE: Clear with pink turbinates. THROAT: No erythema or exudates. No tracheal shift. NECK: No masses, no JVD. CHEST: Left chest ThoraVent in place and hooked to suction at -20 cm H2O. Continues to have intermittent airleak. Approximated left lateral/posterior thoracotomy incision site. Palpable subcutaneous emphysema. LUNGS: Equal air entry with no crackles, wheeze, rhonchi or dullness. On room air. No conversational dyspnea or accessory muscle use.. CVS: S1 and S2 normal with no audible murmur, regular rhythm. No extra heart sounds ABDOMEN: No hepatosplenomegaly, active bowel sounds, no guarding or rigidity. SPINE: No scoliosis or deformity SKIN: No rashes CENTRAL NERVOUS SYSTEM: No focal deficits, tone is normal in all 4 extremities. EXTREMITIES: There is no peripheral edema, clubbing, or cyanosis. Peripheral pulses are intact. Results - Laboratory Findings CBC and BMP: 03/11/25 14:14 03/11/25 14:14 PT/INR, D-dimer PT 9.9 sec (10.0-12.5) L 03/11/25 14:14 INR 0.9 (<1.2) 03/11/25 14:14 Abnormal lab findings: Abnormal Labs 03/11/25 03/11/25 03/11/25 14:14 14:14 14:14 RBC 4.27 L PT 9.9 L Glucose 117 H - Diagnostic Findings Chest x-ray: image reviewed Assessment and Plan Assessment: Postoperative left-sided pneumothorax with subcutaneous emphysema, status post Thora vent insertion, follow-up chest x-ray showing improvement in left-sided pneumothorax. No tension-like features. Non-small cell lung cancer/adenocarcinoma, status post left upper lobectomy, mediastinal lymph node dissection, and cryoablation of left intercostal nerves, on 02/12/2025. Benign essential hypertension. Chronic obstructive pulmonary disease, stable and inactive Chronic ongoing nicotine dependence Obstructive sleep apnea syndrome. Degenerative joint disease. Chronic back pain. History of ADHD. Plan: Status post Thora vent insertion by cardiothoracic team Patient's medications, labs, chest x-ray reviewed Improvement in left-sided pnuemothorax Continue suction -20 cm H2O Continues to have intermittent airleak Continue encourage incentive spirometer hourly Reporting substantial pain at the previous thoracotomy site Continue current analgesics as well as add Dilaudid for breakthrough pain We will continue to follow, additional recommendations forthcoming. I have personally seen and examined the patient, performed the documentation and the assessment and plan as written. Number of minutes spent on the visit:20 This dictation was produced using [employer] software please excuse grammatical errors Time with Patient: Greater than 30
[2025-03-12] MEDS: ZIPRASIDONE 20 MG CAP PO SCH (07:53)
[2025-03-12] MEDS: METOPROLOL SUCCINATE (ER) 50 MG TAB.ER.24H PO SCH (07:54)
[2025-03-12] MEDS ORDERED: NON FORMULARY DRUG (Dextroamphetamine/Amphetamine [Adderall] 20 MG Tablet) PO SCH (09:00)
--- NOTE | 2025-03-12 10:56 | P.PN ---
Subjective Progress Note Date: 03/12/25 Principal diagnosis: Left-sided pneumothorax with subcutaneous emphysema. Past medical history significant for Non-small cell lung cancer/adenocarcinoma, status post left upper lobectomy, mediastinal lymph node dissection, cryoablation of left intercostal nerves, on 02/12/2025, hypertension, chronic obstructive pulmonary disease, obstructive sleep apnea without BiPAP use, chronic back pain, ADHD, and chronic ongoing tobacco dependence in the form of vaping. Status post day #1 placement of left Thoravent by Dr. Welch in the emergency department. The patient was seen and examined at his bedside on the fifth floor medical oncology unit. The patient is currently sitting up in bed, is awake, alert, oriented x 3 and is in no acute apparent distress. The patient denies any complaints of shortness of breath at this time, although is complaining of some pain to his Thoravent insertion site. The patient reports that he feels better today after having the Thoravent placed. Chest x-ray shows persistent but improved small to moderate sized left apical pneumothorax with left apical chest tube in place. Left Thoravent remains to low continuous wall suction -20 cm H2O. Intermittent airleak is present. No drainage present. Oxygen saturations are 95% on room air and he is achieving 2000 mL on his incentive spirometry with encouragement. Objective - Vital Signs Vital signs: Vital Signs Temp 97.6 F 03/12/25 07:03 Pulse 54 L 03/12/25 07:03 Resp 18 03/12/25 07:03 BP 158/91 03/12/25 07:03 Pulse Ox 95 03/12/25 07:03 FiO2 Intake & Output 03/11/25 03/12/25 03/12/25 18:59 06:59 18:59 Intake Total 240 Balance 240 Weight 115.666 kg 115.666 kg Intake: Oral 240 - Exam CONSTITUTIONAL: Appears comfortable, cooperative, no acute distress RESPIRATORY: Lungs sounds diminished bilaterally. Respirations symmetrical, nonlabored. Currently on room air with oxygen saturation 95%. Able to achieve 2000 mL on incentive spirometry. Strong cough. CARDIOVASCULAR: S1, S2 present. Regular rate and rhythm, sinus rhythm on telemetry. Palpable peripheral pulses bilaterally. No edema present. No calf pain or tenderness noted. SCDs present. GASTROINTESTINAL: Abdomen soft, nontender, nondistended. Active bowel sounds present 4 quadrants. Tolerating diet. GENITOURINARY: Continues to void. INTEGUMENTARY: Skin is warm and dry with no clubbing or cyanosis present. Left thoracotomyc incision well approximated and healed. NEUROLOGIC: Cranial nerves II through XII intact. No focal deficits. MUSKULOSKELETAL: Able to move all extremities, strength equal bilaterally, gait normal. PSYCHIATRIC: Alert and oriented to person place and time, appropriate affect, intact judgment and insight INVASIVE LINES AND TUBES: Left Thoravent remains to low continuous wall suction -20 cm H2O. Intermittent airleak is present. No drainage present. - Allied health notes Allied health notes reviewed: nursing - Labs CBC & Chem 7: 03/11/25 14:14 03/11/25 14:14 Labs: Abnormal Lab Results - Last 24 Hours (Table) 03/11/25 03/11/25 03/11/25 Range/Units 14:14 14:14 14:14 RBC 4.27 L (4.40-5.60) 10*6/uL PT 9.9 L (10.0-12.5) sec Glucose 117 H (74-99) mg/dL - Imaging and Cardiology Chest x-ray: report reviewed, image reviewed Assessment and Plan Assessment: Left-sided pneumothorax with subcutaneous emphysema, status post left Thoravent chest tube placement Lung cancer of the left upper lobe, biopsy proven invasive pulmonary adenocarcinoma with focal micropapillary features, final pathology consistent with invasive moderately differentiated acinar pulmonary adenocarcinoma History of hypertension Obstructive sleep apnea without home CPAP use Osteoarthritis Prostate disorder Back and neck surgery on chronic morphine for pain for 18 years ADHD Current tobacco dependence (patient states quit in July 2024 but daughter says still smoking) Daily marijuana use Plan: Keep left Thoravent to low continuous wall suction -20 cm H2O. Continue to monitor for airleak resolution. Encourage use of incentive spirometry 10 times every hour while awake. Continue to monitor daily chest x-rays. The importance of risk modification including nicotine abuse in the way of vaping has been discussed with the patient, upon discharge he will be given the number to 1800quitNOW. Medical management of other comorbidities per primary care and pulmonary care management. Out of bed for all meals. More recommendations follow based on patient's clinical course. Time with Patient: Greater than 30
--- NOTE | 2025-03-12 14:25 | P.HPIM ---
History of Present Illness H&P Date: 03/12/25 Chief Complaint: Left-upper chest pain Patient is a 64-year-old male with a known history of COPD, obstructive sleep apnea not on CPAP, osteoarthritis, chronic back pain and recent left upper lobe spiculated nodule highly suspicious for bronchogenic carcinoma. Patient unde rwent bronchoscopy and biopsy on 01/02/2025. Findings consistent with non-small cell lung cancer and was referred to CT surgery. Patient underwent video- assisted thoracoscopic surgery with lysis of pleural adhesions, left upper lobectomy and mediastinal lymph node dissection on 02/12/2025. Pathology was positive for invasive moderately differentiated pulmonary adenocarcinoma. Margins negative for malignancy. 3 hilar lymph nodes negative for metastasis. Patient presents to ER with complaints of worsening shortness of breath and left-sided chest pain at the previous incision site. Chest x-ray showed prominent left-sided pneumothorax associated subcutaneous emphysema. Patient was placed on left chest per event by CT surgery team. Repeat chest x-ray in the showed improvement in the left-sided pneumothorax. Patient is currently sitting in the chair. Awake alert and oriented. Currently on room air. Still complains of left upper chest pain. Thora vent attached to atrium with suction Laboratory data showed WBC 6.23 hemoglobin 13.5 and platelets 325 Review of Systems Constitutional: Patient denies any fever or chills . No generalized weakness or weight loss. Abdomen: Patient denied nausea vomiting and diarrhea and abdominal pain. Cardiovascular: Patient does complain of left upper chest pain and mild short of breath no palpitations. Respiratory: patient denied any cough or sputum production. Mild shortness of breath Neurologic: Patient denied any numbness or tingling. no headache. Musculoskeletal: Patient denies any complaints of joint swelling or deformity. Skin: Negative Psychiatric: Negative Endocrine: No heat or cold intolerance. No recent weight gain. Genitourinary: No dysuria or hematuria. All other 14 point ROS negative except the above Past Medical History Past Medical History: Cancer, Hypertension, Osteoarthritis (OA), Prostate Disorder, Sleep Apnea/CPAP/BIPAP Additional Past Medical History / Comment(s): new dx. lung cancer 2024 History of Any Multi-Drug Resistant Organisms: None Reported Past Surgical History: Back Surgery Additional Past Surgical History / Comment(s): neck x3, lower back fusions- morphine for pain sice 18 years, cervical fusion in September 2024, bronchoscopy, left lobectomy Past Anesthesia/Blood Transfusion Reactions: No Reported Reaction Additional Past Anesthesia/Blood Transfusion Reaction / Comment(s): no blood transfusions Past Psychological History: ADD/ADHD Additional Psychological History / Comment(s): takes geodon for temper Smoking Status: Current every day smoker, Never smoker Past Alcohol Use History: None Reported Additional Past Alcohol Use History / Comment(s): 2023 quit smoking cigarettes, 1 1/2ppd for 50 yrs. smokes marijuana every day Past Drug Use History: Marijuana Additional Drug Use History / Comment(s): edibles , knows to not have marijuana 24 hours prior to procedure - Past Family History Mother Family Medical History: Cancer Additional Family Medical History / Comment(s): throat Medications and Allergies Home Medications Medication Instructions Recorded Confirmed Type Dextroamphetamine/Amphetamine 20 mg PO BID 12/31/24 03/11/25 History [Adderall] Ziprasidone [Geodon] 20 mg PO BID 12/31/24 03/11/25 History Metoprolol Succinate (ER) [Toprol 50 mg PO DAILY 02/10/25 03/11/25 History XL] Morphine Sulfate ER [Ms Contin] 60 mg PO Q8H 03/11/25 03/11/25 History methocarbamoL [Robaxin] 1,000 mg PO QID PRN 03/11/25 03/11/25 History Allergies Allergy/AdvReac Type Severity Reaction Status Date / Time oxytetracycline Allergy Unknown Verified 03/11/25 13:11 [From Terramycin] Penicillins AdvReac Swelling Verified 03/11/25 13:11 Physical Exam Vitals: Vital Signs Temp Pulse Pulse Resp BP BP Pulse Ox 03/12/25 07:03 97.6 F 54 L 18 158/91 95 03/12/25 01:29 98.7 F 64 18 143/81 93 L 03/11/25 22:39 97.6 F 66 18 152/82 96 03/11/25 22:08 98.5 F 61 18 155/94 98 03/11/25 20:51 61 18 147/85 96 03/11/25 19:39 66 18 131/85 94 L 03/11/25 17:00 60 20 139/87 95 03/11/25 16:00 70 20 150/100 98 03/11/25 15:43 71 20 131/90 95 03/11/25 15:00 70 22 145/89 94 L 03/11/25 14:18 22 03/11/25 14:14 22 03/11/25 14:12 74 18 141/94 96 03/11/25 13:09 99.1 F 82 22 137/72 97 Intake and Output 03/11/25 03/12/25 03/12/25 22:59 06:59 14:59 Intake Total 240 Balance 240 Intake: Oral 240 Other: Weight 115.666 kg Physical exam PHYSICAL EXAMINATION: Patient is lying in the bed comfortably, no acute distress, awake alert and oriented.. HEENT: Normocephalic. Neck is supple. Pupils reactive. Nostrils clear. Oral cavity is moist. Neck reveals no JVD, carotid bruits, or thyromegaly. CHEST EXAMINATION: Trachea is central. Symmetrical expansion. Lung johnson clear to auscultation and percussion. Left upper posterior chest wall crepitus CARDIAC: Normal S1, S2 with no gallops. No murmurs ABDOMEN: Soft. Bowel sounds normal. No organomegaly. No abdominal bruits. Extremities: reveal no edema. No clubbing or cyanosis Neurologically awake, alert, oriented x3 with well-coordinated movements. No focal deficits noted Skin: No rash or skin lesions. Psychiatric: Coperative. Nonsuicidal Musculoskeletal: No joint swelling or deformity. Normal range of motion. Results CBC & Chem 7: 03/11/25 14:14 03/11/25 14:14 Labs: Abnormal Lab Results - Last 24 Hours (Table) 03/11/25 03/11/25 03/11/25 Range/Units 14:14 14:14 14:14 RBC 4.27 L (4.40-5.60) 10*6/uL PT 9.9 L (10.0-12.5) sec Glucose 117 H (74-99) mg/dL Thrombosis Risk Factor Assmnt - DVT/VTE Prophylaxis DVT/VTE Prophylaxis: Pharmacologic Prophylaxis ordered - Choose All That Apply Any of the Below Risk Factors Present?: Yes Each Factor Represents 1 point: Obesity (BMI >25) Thrombosis Risk Factor Assessment Total Risk Factor Score: 1 Thrombosis Risk Factor Assessment Level: Low Risk Assessment and Plan Assessment: Left-sided pneumothorax with subcutaneous emphysema. Status post Thora vent insertion with improvement in the pneumothorax as per repeat chest x-ray Non-small cell lung cancer/adenocarcinoma status post left upper lobectomy, mediastinal lymph node dissection and cryoablation of the left intercostal nerves on 02/12/2025 COPD not in exacerbation Hypertension Nicotine addiction Obstructive sleep apnea not on CPAP at home Degenerative disease Chronic back pain History of cervical spine surgery History of ADHD DVT prophylaxis heparin subcu Plan: Patient is status post Thora vent insertion by CT surgery team with improvement in left-sided pneumothorax on repeat x-ray. Continue with suction -20 cc H2O. Pulmonary and CT surgery is on board. Encourage incentive spirometry. Continue with home medications and pain management with Dilaudid. Follow-up closely. Time with Patient: Greater than 30
[2025-03-12] MEDS: HEPARIN SODIUM,PORCINE 5,000 UNIT/ML 1 ML VIAL SQ SCH (17:48)
[2025-03-13] MEDS: methocarbamoL 500 MG TAB PO PRN (00:41)
[2025-03-13] MEDS: HYDROmorphone 0.5 MG/0.5 ML SYRINGE IVP PRN (00:41)
--- NOTE | 2025-03-13 07:54 | XR ---
EXAMINATION TYPE: XR chest 1V portable DATE OF EXAM: 03/13/2025 CLINICAL INDICATION: Male, 64 years old with history of Left pneumothorax, progress study. TECHNIQUE: Single AP portable upright view of the chest is obtained. COMPARISON: Chest x-ray from one day earlier FINDINGS: Continued improving small to moderate sized left apical pneumothorax with left apical ches t tube in place. Overlying subcutaneous emphysema extending superiorly is redemonstrated. Persistent left-sided volume loss with tracheal shift. Persistent diffuse left lung increased opacity. Right stacey g remains clear. Cardiac silhouette size stable and within normal limits. Surgical change to the cerv ical spine extending from upper thoracic levels is redemonstrated. IMPRESSION: Continued improving [id number] sized left apical pneumothorax with left apical magdy st tube in place. Persistent diffuse left lung acute infiltrates and/or atelectasis. [facility], , 03/13/2025 7:52 AM
[2025-03-13 08:19] LABS: Basophils # (A) 0.03 X 10*3/uL (0.00-0.10); Basophils % (A) 0.4 %; Eosinophils # (A) 0.64 X 10*3/uL (0.04-0.35); Eosinophils % (A) 8.2 %; HCT 36.8 % (39.6-50.0); HGB 11.6 g/dL (13.0-17.0); Lymphocytes # (A) 2.86 X 10*3/uL (0.90-5.00); Lymphocytes % (A) 36.9 %; MCH 31.1 pg (27.0-32.0); MCHC 31.5 g/dL (32.0-37.0); MCV 98.7 FL (80.0-97.0); Mean Platelet Volume 10.5 FL (9.5-12.2); Monocytes # (A) 0.67 X 10*3/uL (0.20-1.00); Monocytes % (A) 8.6 %; NRBC Per 100 WBC 0 X 10*3/uL (0.00-0.01); Neutrophils # (A) 3.54 X 10*3/uL (1.80-7.70); Neutrophils % (A) 45.6 %; Platelet Count 282 X 10*3/uL (140-440); RBC 3.73 X 10*6/uL (4.40-5.60); RDW 14.3 % (11.5-14.5); WBC 7.76 X 10*3/uL (4.50-10.00)
[2025-03-13 08:36] LABS: BUN/Creat Ratio 27.11 Ratio (12.00-20.00); Blood Urea Nitrogen 24.4 mg/dL (9.0-27.0); Calcium 8.7 mg/dL (8.7-10.3); Carbon Dioxide 26.2 mmol/L (21.6-31.8); Chloride 106 mmol/L (96-109); Glucose 96 mg/dL (70-110); Potassium 4.6 mmol/L (3.5-5.5); Sodium 139 mmol/L (135-145)
--- NOTE | 2025-03-13 11:09 | P.PN ---
Subjective Progress Note Date: 03/13/25 Principal diagnosis: Left-sided pneumothorax with subcutaneous emphysema. Past medical history significant for Non-small cell lung cancer/adenocarcinoma, status post left upper lobectomy, mediastinal lymph node dissection, cryoablation of left intercostal nerves, on 02/12/2025, hypertension, chronic obstructive pulmonary disease, obstructive sleep apnea without BiPAP use, chronic back pain, ADHD, and chronic ongoing tobacco dependence in the form of vaping. Status post day #2 placement of left Thoravent by Dr. Welch in the emergency department. The patient was seen and examined in follow-up today March 13, 2025 at his bedside on the fifth floor medical oncology unit. He is currently sitting up to bedside chair, is awake, alert, oriented x 3 and is in no acute apparent distress. The patient's reports he feels much improved since being admitted and having the chest tube placed. He denies any complaints of shortness of breath at this time, although is complaining of some pain to his Thoravent insertion site and to his left shoulder blade. Oxygen saturations are 96% on room air and he is achieving 3000 mL on his incentive spirometry with encouragement. Left Tho ravent remains in place to low continuous wall suction -20 cm H2O. Intermittent airleak is present. Draining thin serosanguineous drainage with 60 mL output in the last 24 hours. Chest x-ray this morning shows continued improving small to moderate-sized left apical pneumothorax with left apical chest tube in place, persistent diffuse left acute infiltrate and/or atelectasis. Objective - Vital Signs Vital signs: Vital Signs Temp 97.4 F L 03/13/25 07:14 Pulse 56 L 03/13/25 07:14 Resp 16 03/13/25 07:14 BP 139/74 03/13/25 07:14 Pulse Ox 93 L 03/13/25 07:14 FiO2 Intake & Output 03/12/25 03/13/25 03/13/25 18:59 06:59 18:59 Output Total 600 96 Balance -600 -96 Output: Chest Tube Drainage 0 96 Thora-Vent Left Anterior 0 96 Chest Urine 600 Other: # Voids 2 1 - Exam CONSTITUTIONAL: Appears comfortable, cooperative, no acute distress RESPIRATORY: Lungs sounds diminished bilaterally. Respirations symmetrical, nonlabored. Currently on room air with oxygen saturation 95%. Able to achieve 3000 mL on incentive spirometry. Strong cough. CARDIOVASCULAR: S1, S2 present. Regular rate and rhythm, sinus rhythm on telemetry. Palpable peripheral pulses bilaterally. No edema present. No calf pain or tenderness noted. SCDs present. GASTROINTESTINAL: Abdomen soft, nontender, nondistended. Active bowel sounds present 4 quadrants. Tolerating diet. GENITOURINARY: Continues to void. INTEGUMENTARY: Skin is warm and dry with no clubbing or cyanosis present. Left thoracotomyc incision well approximated and healed. NEUROLOGIC: Cranial nerves II through XII intact. No focal deficits. MUSKULOSKELETAL: Able to move all extremities, strength equal bilaterally, gait normal. PSYCHIATRIC: Alert and oriented to person place and time, appropriate affect, intact judgment and insight INVASIVE LINES AND TUBES: Left Thoravent remains to low continuous wall suction -20 cm H2O. Intermittent airleak is present. Scant serosanguineous drainage with 60 mL in the last 24 hours. - Allied health notes Allied health notes reviewed: nursing - Labs CBC & Chem 7: 03/13/25 04:22 03/13/25 04:22 Labs: Abnormal Lab Results - Last 24 Hours (Table) 03/13/25 03/13/25 Range/Units 04:22 04:22 RBC 3.73 L (4.40-5.60) X 10*6/uL Hgb 11.6 L (13.0-17.0) g/dL Hct 36.8 L (39.6-50.0) % MCV 98.7 H (80.0-97.0) FL MCHC 31.5 L (32.0-37.0) g/dL Eosinophils # 0.64 H (0.04-0.35) X 10*3/uL BUN/Creatinine Ratio 27.11 H (12.00-20.00) Ratio - Imaging and Cardiology Chest x-ray: report reviewed, image reviewed Assessment and Plan Assessment: Left-sided pneumothorax with subcutaneous emphysema, status post left Thoravent chest tube placement Lung cancer of the left upper lobe, biopsy proven invasive pulmonary adenocarcinoma with focal micropapillary features, final pathology consistent with invasive moderately differentiated acinar pulmonary adenocarcinoma History of hypertension Obstructive sleep apnea without home CPAP use Osteoarthritis Prostate disorder Back and neck surgery on chronic morphine for pain for 18 years ADHD Current tobacco dependence (patient states quit in July 2024 but daughter says still smoking) Daily marijuana use Plan: Place left Thoravent to waterseal removed from low continuous wall suction. Continue to monitor for airleak resolution. Encourage use of incentive spirometry 10 times every hour while awake. Continue to monitor daily chest x-rays. The importance of risk modification including nicotine abuse in the way of vaping has been discussed with the patient, upon discharge he will be given the number to 1800quitNOW. Medical management of other comorbidities per primary care and pulmonary care management. Out of bed for all meals. More recommendations follow based on patient's clinical course. Time with Patient: Less than 30
--- NOTE | 2025-03-13 12:05 | P.PN ---
Subjective Progress Note Date: 03/13/25 This is a 64-year-old white male with past medical history significant for tobacco dependence, COPD, obstructive sleep apnea without home CPAP, osteoarthritis, chronic back pain. His primary care provider is Dr. Michael Recinos. He also follows in the pulmonary office with Dr. Cotto. Of note, patient recently found to have a 2.9 x 2.4 cm left upper lobe spiculated nodule that was highly suspicious for bronchogenic carcinoma. There is an additional 0.9 x 0.7 cm noncalcified nodule in the left lower lobe. Subsequently, underwent Ion bronchoscopy and biopsy on 01/02/2025. Findings consistent was non-small cell lung carcinoma. He was referred to cardiothoracic surgery. He did undergo a video-assisted thorascopic surgery with lysis of pleural adhesions, left upper lobectomy, and mediastinal lymph node dissection on . Had a relatively uneventful postoperative course. 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 Margins negative for malignancy. 3 hilar lymph nodes negative for metastasis. Presented to the emergency department yesterday with a chief complaint of increased shortness of breath, gurgling coming from his left chest at the previous incision site, and increased left-sided chest pain. Chest x-ray showing a more prominent left-sided pneumothorax with associated subcutaneous emphysema. Patient did have a left chest ThoraVent placed by the cardiothoracic team. Repeat chest x-ray showing improvement in the left-sided pneumothorax. Patient currently being evaluated on the general medical floor. He is sitting up in bed without any distress. On room air. Reporting significant amount of left lateral/posterior back pain. Continues to have some subcutaneous emphysema at the previous surgical incision site. His ThoraVent is attached to an atrium with -20 cm H2O suction. There is an intermittent airleak. Incentive spirometer is at bedside. CBC from admission unremarkable. CMP also unremarkable, electrolytes WDL, creatinine 0.8, glucose 117. Current vital signs: Afebrile, heart rate 64 bpm, blood pressure 143/81 mmHg, nontachypneic, SpO2 recorded at 93% on room air. The patient is seen today March 13, 2025 in follow-up on the regular medical floor. He is currently sitting up in bed. Awake and alert in no acute distress. Maintaining good O2 saturations in the mid 90s on room air. He is afebrile. Hemodynamically stable. Left-sided Thora vent remains in place to Pleur-evac and wall suction. Still remains without positive leak. Chest x-ray shows small to moderate size left apical pneumothorax with left apical chest tube in place. Persistent diffuse left lung acute infiltrates and/or atelectasis. He is encouraged regarding the increased use of the incentive spirometer. White count 10.7. Hemoglobin 11.6. Platelets 282. Sodium 139. Potassium 4.6. Bicarb 26. BUN 24. Creatinine 0.9. Glucose 96. He remains on heparin for DVT prophylaxis. Objective - Vital Signs Vital signs: Vital Signs Temp 97.4 F L 03/13/25 07:14 Pulse 56 L 03/13/25 07:14 Resp 16 03/13/25 07:14 BP 139/74 03/13/25 07:14 Pulse Ox 93 L 03/13/25 07:14 FiO2 Intake & Output 03/12/25 03/13/25 03/13/25 18:59 06:59 18:59 Output Total 600 96 Balance -600 -96 Output: Chest Tube Drainage 0 96 Thora-Vent Left Anterior 0 96 Chest Urine 600 Other: # Voids 2 1 - Exam GENERAL EXAM: Alert, oriented 64-year-old male, on room air oxygen, fairly comfortable in no apparent distress. HEAD: Normocephalic and atraumatic EYES: Normal reaction of pupils, equal size. NOSE: Clear with pink turbinates. THROAT: No erythema or exudates. No tracheal shift. NECK: No masses, no JVD. CHEST: Left chest ThoraVent in place and hooked to suction at -20 cm H2O. Continues to have an ongoing airleak. Approximated left lateral/posterior thoracotomy incision site. Palpable subcutaneous emphysema. LUNGS: Equal air entry with no crackles, wheeze, rhonchi or dullness. On room air. No conversational dyspnea or accessory muscle use.. CVS: S1 and S2 normal with no audible murmur, regular rhythm. No extra heart sounds ABDOMEN: No hepatosplenomegaly, active bowel sounds, no guarding or rigidity. SPINE: No scoliosis or deformity SKIN: No rashes CENTRAL NERVOUS SYSTEM: No focal deficits, tone is normal in all 4 extremities. EXTREMITIES: There is no peripheral edema, clubbing, or cyanosis. Peripheral pulses are intact. - Labs CBC & Chem 7: 03/13/25 04:22 03/13/25 04:22 Labs: Abnormal Lab Results - Last 24 Hours (Table) 03/13/25 03/13/25 Range/Units 04:22 04:22 RBC 3.73 L (4.40-5.60) X 10*6/uL Hgb 11.6 L (13.0-17.0) g/dL Hct 36.8 L (39.6-50.0) % MCV 98.7 H (80.0-97.0) FL MCHC 31.5 L (32.0-37.0) g/dL Eosinophils # 0.64 H (0.04-0.35) X 10*3/uL BUN/Creatinine Ratio 27.11 H (12.00-20.00) Ratio Assessment and Plan Assessment: Postoperative left-sided pneumothorax with subcutaneous emphysema, status post Thora vent insertion, follow-up chest x-ray showing improvement in left-sided pneumothorax. No tension-like features Non-small cell lung cancer/adenocarcinoma, status post left upper lobectomy, mediastinal lymph node dissection, and cryoablation of left intercostal nerves, on 02/12/2025 Benign essential hypertension Chronic obstructive pulmonary disease, stable and inactive Chronic ongoing nicotine dependence Obstructive sleep apnea syndrome Degenerative joint disease Chronic back pain History of ADHD Plan: The patient was seen and evaluated Chest x-ray labs and medications reviewed Remains stable and on room air oxygen Thora vent remains in place Continues with a positive leak Courage increased use of the incentive spirometer Increase his activity as tolerated Heparin for DVT prophylaxis We will continue to follow I have personally seen and examined the patient, performed the documentation and the assessment and plan as written. Number of minutes spent on the visit: 10 Dictation was produced using [employer]umblation software. Please excuse any grammatical, word or spelling errors.
--- NOTE | 2025-03-13 14:20 | XR ---
EXAMINATION TYPE: XR chest 1V portable DATE OF EXAM: 03/13/2025 CLINICAL INDICATION: Male, 64 years old with history of Left pneumothorax, progress study. TECHNIQUE: Single AP portable upright view of the chest is obtained. COMPARISON: Chest x-ray from earlier today FINDINGS: Slight worsening now moderate sized left apical pneumothorax with left apical chest tube i n place. Overlying subcutaneous emphysema extending superiorly is redemonstrated. Persistent left-lito ed volume loss with tracheal shift. Persistent diffuse left lung increased opacity. Right lung remains clear. Cardiac silhouette size sta ble and within normal limits. Surgical change to the cervical spine extending from upper thoracic lev els is redemonstrated. IMPRESSION: Slight worsening moderate size left apical pneumothorax with left apical chest tube in pl [place]. Persistent diffuse left lung acute infiltrates and/or atelectasis. [facility], , 03/13/2025 2:18 PM
--- NOTE | 2025-03-14 07:08 | XR ---
EXAMINATION TYPE: XR chest 1V portable DATE OF EXAM: 03/14/2025 CLINICAL INDICATION: Male, 64 years old with history of Left pneumothorax, progress study. TECHNIQUE: Single AP portable upright view of the chest is obtained. COMPARISON: Chest x-ray from one day earlier FINDINGS: Persistent small moderate sized left apical pneumothorax with left apical chest tube in pl [place]. Overlying subcutaneous emphysema is redemonstrated. Persistent left-sided volume loss with trach eal shift. Persistent diffuse left lung increased opacity. Right lung shows patchy basilar atelectasis. Cardiac silhouette size stable and within normal limits. Surgical change to the cervical spine are redemonstr ated. IMPRESSION: Slight improving small to moderate size left apical pneumothorax with left apical chest t ube in place. Persistent diffuse left lung acute infiltrates and/or atelectasis. [facility], , 03/14/2025 7:05 AM
--- NOTE | 2025-03-14 10:00 | P.PN ---
Subjective Progress Note Date: 03/14/25 This is a 64-year-old white male with past medical history significant for tobacco dependence, COPD, obstructive sleep apnea without home CPAP, osteoarthritis, chronic back pain. His primary care provider is Dr. Michael Recinos. He also follows in the pulmonary office with Dr. Cotto. Of note, patient recently found to have a 2.9 x 2.4 cm left upper lobe spiculated nodule that was highly suspicious for bronchogenic carcinoma. There is an additional 0.9 x 0.7 cm noncalcified nodule in the left lower lobe. Subsequently, underwent Ion bronchoscopy and biopsy on 01/02/2025. Findings consistent was non-small cell lung carcinoma. He was referred to cardiothoracic surgery. He did undergo a video-assisted thorascopic surgery with lysis of pleural adhesions, left upper lobectomy, and mediastinal lymph node dissection on . Had a relatively uneventful postoperative course. 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 Margins negative for malignancy. 3 hilar lymph nodes negative for metastasis. Presented to the emergency department yesterday with a chief complaint of increased shortness of breath, gurgling coming from his left chest at the previous incision site, and increased left-sided chest pain. Chest x-ray showing a more prominent left-sided pneumothorax with associated subcutaneous emphysema. Patient did have a left chest ThoraVent placed by the cardiothoracic team. Repeat chest x-ray showing improvement in the left-sided pneumothorax. Patient currently being evaluated on the general medical floor. He is sitting up in bed without any distress. On room air. Reporting significant amount of left lateral/posterior back pain. Continues to have some subcutaneous emphysema at the previous surgical incision site. His ThoraVent is attached to an atrium with -20 cm H2O suction. There is an intermittent airleak. Incentive spirometer is at bedside. CBC from admission unremarkable. CMP also unremarkable, electrolytes WDL, creatinine 0.8, glucose 117. Current vital signs: Afebrile, heart rate 64 bpm, blood pressure 143/81 mmHg, nontachypneic, SpO2 recorded at 93% on room air. The patient is seen today March 13, 2025 in follow-up on the regular medical floor. He is currently sitting up in bed. Awake and alert in no acute distress. Maintaining good O2 saturations in the mid 90s on room air. He is afebrile. Hemodynamically stable. Left-sided Thora vent remains in place to Pleur-evac and wall suction. Still remains without positive leak. Chest x-ray shows small to moderate size left apical pneumothorax with left apical chest tube in place. Persistent diffuse left lung acute infiltrates and/or atelectasis. He is encouraged regarding the increased use of the incentive spirometer. White count 10.7. Hemoglobin 11.6. Platelets 282. Sodium 139. Potassium 4.6. Bicarb 26. BUN 24. Creatinine 0.9. Glucose 96. He remains on heparin for DVT prophylaxis. The patient is seen today March 14, 2025 in follow-up on the regular medical floor. He is sitting up in a chair at the bedside. Awake and alert in no acute distress. He is maintaining good O2 saturations in the 90s on room air. He is been afebrile. Hemodynamically stable. Left-sided Thora vent remains in place to Pleur-evac to wall suction. A leak continues. Chest x-ray reveals a small to moderate left apical pneumothorax with left apical chest tube in place. Persistent diffuse left lung acute infiltrates and/or atelectasis. No new labs today. He remains on heparin for DVT prophylaxis. Pain is well-controlled. Objective - Vital Signs Vital signs: Vital Signs Temp 97.7 F 03/14/25 07:42 Pulse 84 03/14/25 07:42 Resp 16 03/14/25 07:42 BP 149/91 03/14/25 07:42 Pulse Ox 92 L 03/14/25 07:42 FiO2 Intake & Output 03/13/25 03/14/25 03/14/25 18:59 06:59 18:59 Intake Total 540 590 Output Total 500 110 Balance 40 480 Intake: Oral 540 590 Output: Chest Tube Drainage 10 Thora-Vent Left Anterior 10 Chest Urine 500 100 Other: Voiding Method Urinal # Voids 1 2 - Exam GENERAL EXAM: Alert, 64-year-old male, sitting up in a chair, on room air oxygen, comfortable in no apparent distress. HEAD: Normocephalic and atraumatic EYES: Normal reaction of pupils, equal size. NOSE: Clear with pink turbinates. THROAT: No erythema or exudates. No tracheal shift. NECK: No masses, no JVD. CHEST: Left chest ThoraVent in place and to suction at -20 cm H2O. Continues to have an ongoing airleak. Approximated left lateral/posterior thoracotomy incision site. LUNGS: Equal air entry with no crackles, wheeze, rhonchi or dullness. On room air. No conversational dyspnea or accessory muscle use.. CVS: S1 and S2 normal with no audible murmur, regular rhythm. No extra heart sounds ABDOMEN: No hepatosplenomegaly, active bowel sounds, no guarding or rigidity. SPINE: No scoliosis or deformity SKIN: No rashes CENTRAL NERVOUS SYSTEM: No focal deficits, tone is normal in all 4 extremities. EXTREMITIES: There is no peripheral edema, clubbing, or cyanosis. Peripheral pulses are intact. - Labs CBC & Chem 7: 03/13/25 04:22 03/13/25 04:22 Assessment and Plan Assessment: Postoperative left-sided pneumothorax with subcutaneous emphysema, status post Thora vent insertion, follow-up chest x-ray showing slight improvement in left- sided pneumothorax. No tension-like features Non-small cell lung cancer/adenocarcinoma, status post left upper lobectomy, mediastinal lymph node dissection, and cryoablation of left intercostal nerves, on 02/12/2025 Benign essential hypertension Chronic obstructive pulmonary disease, stable and inactive Chronic ongoing nicotine dependence Obstructive sleep apnea syndrome Degenerative joint disease Chronic back pain History of ADHD Plan: The patient was seen and evaluated Chest x-ray and medications reviewed Remains stable and on room air oxygen Thora vent remains in place Continues with a positive leak Increased use of the incentive spirometer Increase his activity as tolerated Heparin for DVT prophylaxis We will continue to follow I have personally seen and examined the patient, performed the documentation and the assessment and plan as written. Number of minutes spent on the visit: 10 Dictation was produced using [employer] software. Please excuse any grammatical, word or spelling errors.
--- NOTE | 2025-03-14 10:11 | P.PN ---
Subjective Progress Note Date: 03/14/25 Principal diagnosis: Left-sided pneumothorax with subcutaneous emphysema. Previous medical history of non-small cell lung cancer consistent with adenocarcinoma status post left up per lobectomy with mediastinal lymph node dissection and, cryoablation of left intercostal nerves on 02/12/2025, hypertension, chronic obstructive pulmonary disease, obstructive sleep apnea without BiPAP use, chronic back pain, ADHD, and chronic ongoing tobacco dependence in the form of vaping. Status post day #3 placement of left Thoravent by the emergency room physicians The patient was seen and examined this morning sitting up in a recliner on the medical oncology unit in no acute distress although he is a bit irritated. He is asking what the next step will be with his pneumothorax as he "cannot keep having air in the chest". States pain is mostly controlled on current medication regimen although does complain of back pain from sitting in the chair. Denies significant shortness of breath. Remains on room air with oxygen saturation in the mid 90s, able to achieve 3000 mL on incentive spirometry. Left sided Thora-vent remains to continuous wall suction, intermittent airleak present, 70 mL drainage in the last 24 hours. Chest x-ray reviewed. Objective - Vital Signs Vital signs: Vital Signs Temp 97.7 F 03/14/25 07:42 Pulse 84 03/14/25 07:42 Resp 16 03/14/25 07:42 BP 149/91 03/14/25 07:42 Pulse Ox 92 L 03/14/25 07:42 FiO2 Intake & Output 03/13/25 03/14/25 03/14/25 18:59 06:59 18:59 Intake Total 540 590 Output Total 500 110 Balance 40 480 Intake: Oral 540 590 Output: Chest Tube Drainage 10 Thora-Vent Left Anterior 10 Chest Urine 500 100 Other: Voiding Method Urinal # Voids 1 2 - Exam CONSTITUTIONAL: Appears comfortable, cooperative, no acute distress RESPIRATORY: Lungs sounds diminished bilaterally. Respirations even, nonlabored. Currently on room air with oxygen saturation 96%. Able to achieve 90630 mL on incentive spirometry. Strong cough. CARDIOVASCULAR: S1, S2 present. Regular rate and rhythm. Palpable peripheral pulses bilaterally. No edema present. No calf pain or tenderness noted GASTROINTESTINAL: Abdomen soft, nontender, nondistended. Active bowel sounds present 4 quadrants. Tolerating diet GENITOURINARY: Continues to void INTEGUMENTARY: Skin is warm and dry NEUROLOGIC: Cranial nerves II through XII intact MUSKULOSKELETAL: Able to move all extremities, strength equal bilaterally, gait normal PSYCHIATRIC: Alert and oriented to person place and time, appropriate affect, intact judgment and insight INVASIVE LINES AND TUBES: Left sided Thora-vent present to continuous wall suction, intermittent airleak present, 10 mL serosanguineous drainage overnight, 70 mL in the last 24 hours - Allied health notes Allied health notes reviewed: nursing - Labs CBC & Chem 7: 03/13/25 04:22 03/13/25 04:22 - Imaging and Cardiology Chest x-ray: report reviewed, image reviewed Assessment and Plan Assessment: Left-sided pneumothorax with subcutaneous emphysema, status post placement of left Thoravent by the emergency room physicians History of non-small cell lung cancer consistent with adenocarcinoma status post left upper lobectomy with mediastinal lymph node dissection and, cryoablation of left intercostal nerves on 02/12/2025 Hypertension Chronic obstructive pulmonary disease Obstructive sleep apnea without BiPAP use Chronic back pain ADHD Chronic ongoing tobacco dependence in the form of vaping Plan: Will plan to continue Thora-vent to continuous wall suction throughout the weekend, may add extension tubing to suction to allow patient to ambulate in his room Encourage incentive spirometry use Will monitor daily chest x-rays Reinforced smoking cessation Pain control per current medication regimen Medical management of other comorbidities per internal medicine, pulmonology More recommendations to follow
--- NOTE | 2025-03-15 08:05 | XR ---
EXAMINATION TYPE: XR chest 1V portable DATE OF EXAM: 03/15/2025 7:11 AM COMPARISON: Chest radiograph from one day prior. CLINICAL INDICATION: Male, 64 years old with history of Left pneumothorax; [facility] TECHNIQUE: XR chest 1V portable Frontal view of the chest. FINDINGS: Lungs/Pleura: There is no evidence of right pleural effusion, focal consolidation, or right pneumotho rax. Small left pneumothorax. Blunting of the left costophrenic angle. Pulmonary vascularity: Unremarkable. Heart/mediastinum: Cardiomediastinal silhouette is unremarkable. Musculoskeletal: No acute osseous pathology. There is fixation hardware in the lower cervical spine. Other findings: Subcutaneous emphysema scattered throughout the visualized thorax. Lines/Tubes: Left thoracotomy tube is present without evidence of pneumothorax. IMPRESSION: Stable left thoracotomy tube with small left apical pneumothorax. Small left pleural effusion. [facility], , 03/15/2025 8:02 AM
--- NOTE | 2025-03-15 09:00 | P.PN ---
Subjective Progress Note Date: 03/15/25 This is a 64-year-old white male with past medical history significant for tobacco dependence, COPD, obstructive sleep apnea without home CPAP, osteoarthritis, chronic back pain. His primary care provider is Dr. Michael Recinos. He also follows in the pulmonary office with Dr. Cotto. Of note, patient recently found to have a 2.9 x 2.4 cm left upper lobe spiculated nodule that was highly suspicious for bronchogenic carcinoma. There is an additional 0.9 x 0.7 cm noncalcified nodule in the left lower lobe. Subsequently, underwent Ion bronchoscopy and biopsy on 01/02/2025. Findings consistent was non-small cell lung carcinoma. He was referred to cardiothoracic surgery. He did undergo a video-assisted thorascopic surgery with lysis of pleural adhesions, left upper lobectomy, and mediastinal lymph node dissection on . Had a relatively uneventful postoperative course. 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 Margins negative for malignancy. 3 hilar lymph nodes negative for metastasis. Presented to the emergency department yesterday with a chief complaint of increased shortness of breath, gurgling coming from his left chest at the previous incision site, and increased left-sided chest pain. Chest x-ray showing a more prominent left-sided pneumothorax with associated subcutaneous emphysema. Patient did have a left chest ThoraVent placed by the cardiothoracic team. Repeat chest x-ray showing improvement in the left-sided pneumothorax. Patient currently being evaluated on the general medical floor. He is sitting up in bed without any distress. On room air. Reporting significant amount of left lateral/posterior back pain. Continues to have some subcutaneous emphysema at the previous surgical incision site. His ThoraVent is attached to an atrium with -20 cm H2O suction. There is an intermittent airleak. Incentive spirometer is at bedside. CBC from admission unremarkable. CMP also unremarkable, electrolytes WDL, creatinine 0.8, glucose 117. Current vital signs: Afebrile, heart rate 64 bpm, blood pressure 143/81 mmHg, nontachypneic, SpO2 recorded at 93% on room air. The patient is seen today March 13, 2025 in follow-up on the regular medical floor. He is currently sitting up in bed. Awake and alert in no acute distress. Maintaining good O2 saturations in the mid 90s on room air. He is afebrile. Hemodynamically stable. Left-sided Thora vent remains in place to Pleur-evac and wall suction. Still remains without positive leak. Chest x-ray shows small to moderate size left apical pneumothorax with left apical chest tube in place. Persistent diffuse left lung acute infiltrates and/or atelectasis. He is encouraged regarding the increased use of the incentive spirometer. White count 10.7. Hemoglobin 11.6. Platelets 282. Sodium 139. Potassium 4.6. Bicarb 26. BUN 24. Creatinine 0.9. Glucose 96. He remains on heparin for DVT prophylaxis. The patient is seen today March 14, 2025 in follow-up on the regular medical floor. He is sitting up in a chair at the bedside. Awake and alert in no acute distress. He is maintaining good O2 saturations in the 90s on room air. He is been afebrile. Hemodynamically stable. Left-sided Thora vent remains in place to Pleur-evac to wall suction. A leak continues. Chest x-ray reveals a small to moderate left apical pneumothorax with left apical chest tube in place. Persistent diffuse left lung acute infiltrates and/or atelectasis. No new labs today. He remains on heparin for DVT prophylaxis. Pain is well-controlled. The patient is seen today March 15, 2025 in follow-up on the regular medical floor. He is currently awake and alert in no acute distress. Sitting up in a chair. Denies any worsening shortness of breath, cough or congestion. Continues to maintain good O2 saturations in the upper 90s on room air. Has been afebrile. Hemodynamically stable. Today's chest x-ray just reveals a small left apical pneumothorax. Thora vent remains in place. Still with a positive leak. Continues to work with the incentive spirometer. Heparin for DVT prophylaxis. Objective - Vital Signs Vital signs: Vital Signs Temp 97.7 F 03/15/25 07:00 Pulse 56 L 03/15/25 07:00 Resp 16 03/15/25 07:00 BP 118/90 03/15/25 07:00 Pulse Ox 98 03/15/25 07:00 FiO2 Intake & Output 03/14/25 03/15/25 03/15/25 18:59 06:59 18:59 Intake Total 2039 590 Output Total 40 650 Balance 1999 Intake: Oral 2039 590 Output: Chest Tube Drainage 40 Thora-Vent Left Anterior 40 Chest Urine 650 Other: Voiding Method Toilet Urinal # Voids 4 1 - Exam GENERAL EXAM: Alert, 64-year-old male, up in a chair, on room air oxygen, in no apparent distress. HEAD: Normocephalic and atraumatic EYES: Normal reaction of pupils, equal size. NOSE: Clear with pink turbinates. THROAT: No erythema or exudates. No tracheal shift. NECK: No masses, no JVD. CHEST: Left chest ThoraVent in place and to suction at -20 cm H2O. Continues to have an ongoing airleak. Approximated left lateral/posterior thoracotomy incision site. LUNGS: Equal air entry with no crackles, wheeze, rhonchi or dullness. On room air. No conversational dyspnea or accessory muscle use.. CVS: S1 and S2 normal with no audible murmur, regular rhythm. No extra heart sounds ABDOMEN: No hepatosplenomegaly, active bowel sounds, no guarding or rigidity. SPINE: No scoliosis or deformity SKIN: No rashes CENTRAL NERVOUS SYSTEM: No focal deficits, tone is normal in all 4 extremities. EXTREMITIES: There is no peripheral edema, clubbing, or cyanosis. Peripheral pulses are intact. - Labs CBC & Chem 7: 03/13/25 04:22 03/13/25 04:22 Assessment and Plan Assessment: Postoperative left-sided pneumothorax with subcutaneous emphysema, status post Thora vent insertion, follow-up chest x-ray showing slight improvement in left- sided pneumothorax. No tension-like features Non-small cell lung cancer/adenocarcinoma, status post left upper lobectomy, mediastinal lymph node dissection, and cryoablation of left intercostal nerves, on 02/12/2025 Benign essential hypertension Chronic obstructive pulmonary disease, stable and inactive Chronic ongoing nicotine dependence Obstructive sleep apnea syndrome Degenerative joint disease Chronic back pain History of ADHD Plan: The patient was seen and evaluated Remains stable and on room air oxygen Chest x-ray and medications reviewed Chest x-ray showing improvement Small left apical pneumothorax remains Thora vent remains in place Continues with a positive leak Increased use of the incentive spirometer Increase his activity as tolerated Heparin for DVT prophylaxis We will continue to follow I have personally seen and examined the patient, performed the documentation and the assessment and plan as written. Number of minutes spent on the visit: 10 Dictation was produced using [employer] software. Please excuse any grammatical, word or spelling errors.
--- NOTE | 2025-03-15 10:40 | P.PN ---
Subjective Progress Note Date: 03/15/25 Principal diagnosis: Left-sided pneumothorax with subcutaneous emphysema. Previous medical history of non-small cell lung cancer consistent with adenocarcinoma status post left up per lobectomy with mediastinal lymph node dissection and, cryoablation of left intercostal nerves on 02/12/2025, hypertension, chronic obstructive pulmonary disease, obstructive sleep apnea without BiPAP use, chronic back pain, ADHD, and chronic ongoing tobacco dependence in the form of vaping. Status post day #4 placement of left Thoravent by the emergency room physicians The patient was seen and examined this morning sitting up in a recliner on the medical oncology unit in no acute distress. States pain is mostly controlled on current medication regimen. Denies significant shortness of breath. Remains on room air with oxygen saturation in the mid 90s, able to achieve 3000 mL on incen tive spirometry. Left sided Thora-vent remains to continuous wall suction, intermittent airleak present with expiration and coughing, minimal drainage in the last 24 hours. Chest x-ray reviewed. Objective - Vital Signs Vital signs: Vital Signs Temp 97.7 F 03/15/25 07:00 Pulse 56 L 03/15/25 07:00 Resp 16 03/15/25 07:00 BP 118/90 03/15/25 07:00 Pulse Ox 98 03/15/25 07:00 FiO2 Intake & Output 03/14/25 03/15/25 03/15/25 18:59 06:59 18:59 Intake Total 2040 590 Output Total 40 650 Balance 2000 -60 Intake: Oral 2040 590 Output: Chest Tube Drainage 40 Thora-Vent Left Anterior 40 Chest Urine 650 Other: Voiding Method Toilet Urinal # Voids 4 1 - Exam CONSTITUTIONAL: Appears comfortable, cooperative, no acute distress RESPIRATORY: Lungs sounds diminished bilaterally. Respirations even, nonlabored. Currently on room air with oxygen saturation 96%. Able to achieve 3000 mL on incentive spirometry. Strong cough. CARDIOVASCULAR: S1, S2 present. Regular rate and rhythm. Palpable peripheral pulses bilaterally. No edema present. No calf pain or tenderness noted GASTROINTESTINAL: Abdomen soft, nontender, nondistended. Active bowel sounds present 4 quadrants. Tolerating diet GENITOURINARY: Continues to void INTEGUMENTARY: Skin is warm and dry NEUROLOGIC: Cranial nerves II through XII intact MUSKULOSKELETAL: Able to move all extremities, strength equal bilaterally, gait normal PSYCHIATRIC: Alert and oriented to person place and time, appropriate affect, intact judgment and insight INVASIVE LINES AND TUBES: Left sided Thora-vent present to continuous wall suct ion, intermittent airleak present with expiration and coughing, minimal drainage in the last 24 hours - Allied health notes Allied health notes reviewed: nursing - Labs CBC & Chem 7: 03/13/25 04:22 03/13/25 04:22 - Imaging and Cardiology Chest x-ray: report reviewed, image reviewed Assessment and Plan Assessment: Left-sided pneumothorax with subcutaneous emphysema, status post placement of left Thoravent by the emergency room physicians History of non-small cell lung cancer consistent with adenocarcinoma status post left upper lobectomy with mediastinal lymph node dissection and, cryoablation of left intercostal nerves on 02/12/2025 Hypertension Chronic obstructive pulmonary disease Obstructive sleep apnea without BiPAP use Chronic back pain ADHD Chronic ongoing tobacco dependence in the form of vaping Plan: Will plan to continue Thora-vent to continuous wall suction throughout the weekend, may add extension tubing to suction to allow patient to ambulate in his room Encourage incentive spirometry use Will monitor daily chest x-rays Reinforced smoking cessation Pain control per current medication regimen Medical management of other comorbidities per internal medicine, pulmonology More recommendations to follow
--- NOTE | 2025-03-15 14:10 | P.PN ---
Subjective Progress Note Date: 03/13/25 64-year-old male with a known history of COPD, obstructive sleep apnea not on CPAP, osteoarthritis, chronic back pain and recent left upper lobe spiculated nodule highly suspicious for bronchogenic carcinoma. Patient underwent bronchoscopy and biopsy on 01/02/2025. Findings consistent with non-small cell lung cancer and was referred to CT surgery. Patient underwent video-assisted thoracoscopic surgery with lysis of pleural adhesions, left upper lobectomy and mediastinal lymph node dissection on 02/12/2025. Pathology was positive for invasive moderately differentiated pulmonary adenocarcinoma. Margins negative for malignancy. 3 hilar lymph nodes negative for metastasis. Patient presents to ER with complaints of worsening shortness of breath and left-sided chest pain at the previous incision site. Chest x-ray showed prominent left-sided pneumothorax associated subcutaneous emphysema. Patient was placed on left chest per event by CT surgery team. Repeat chest x-ray in the showed improvement in the left-sided pneumothorax. Patient is currently sitting in the chair. Awake alert and oriented. Currently on room air. Still complains of left upper chest pain. Thora vent attached to atrium with suction Laboratory data showed WBC 6.23 hemoglobin 13.5 and platelets 325 Objective - Vital Signs Vital signs: Vital Signs Temp 97.7 F 03/13/25 11:49 Pulse 46 L 03/13/25 11:49 Resp 16 03/13/25 11:49 BP 126/82 03/13/25 11:49 Pulse Ox 98 03/13/25 11:49 FiO2 Intake & Output 03/12/25 03/13/25 03/13/25 18:59 06:59 18:59 Output Total 600 96 Balance -600 -96 Output: Chest Tube Drainage 0 96 Thora-Vent Left Anterior 0 96 Chest Urine 600 Other: # Voids 2 1 - Exam Patient is lying in the bed comfortably, no acute distress, awake alert and oriented.. HEENT: Normocephalic. Neck is supple. Pupils reactive. Nostrils clear. Oral cavity is moist. Neck reveals no JVD, carotid bruits, or thyromegaly. CHEST EXAMINATION: Trachea is central. Symmetrical expansion. Lung johnson clear to auscultation and percussion. Left upper posterior chest wall crepitus CARDIAC: Normal S1, S2 with no gallops. No murmurs ABDOMEN: Soft. Bowel sounds normal. No organomegaly. No abdominal bruits. Extremities: reveal no edema. No clubbing or cyanosis Neurologically awake, alert, oriented x3 with well-coordinated movements. No focal deficits noted Skin: No rash or skin lesions. Psychiatric: Coperative. Nonsuicidal Musculoskeletal: No joint swelling or deformity. Normal range of motion - Labs CBC & Chem 7: 03/13/25 04:22 03/13/25 04:22 Labs: Abnormal Lab Results - Last 24 Hours (Table) 03/13/25 03/13/25 Range/Units 04:22 04:22 RBC 3.73 L (4.40-5.60) X 10*6/uL Hgb 11.6 L (13.0-17.0) g/dL Hct 36.8 L (39.6-50.0) % MCV 98.7 H (80.0-97.0) FL MCHC 31.5 L (32.0-37.0) g/dL Eosinophils # 0.64 H (0.04-0.35) X 10*3/uL BUN/Creatinine Ratio 27.11 H (12.00-20.00) Ratio Assessment and Plan Assessment: Left-sided pneumothorax with subcutaneous emphysema. Status post Thora vent insertion with improvement in the pneumothorax as per repeat chest x-ray Non-small cell lung cancer/adenocarcinoma status post left upper lobectomy, mediastinal lymph node dissection and cryoablation of the left intercostal nerves on 02/12/2025 COPD not in exacerbation Hypertension Nicotine addiction Obstructive sleep apnea not on CPAP at home Degenerative disease Chronic back pain History of cervical spine surgery History of ADHD DVT prophylaxis heparin subcu Plan: Patient is status post Thora vent insertion by CT surgery team with improvement in left-sided pneumothorax on repeat x-ray. Continue with suction -20 cc H2O. Pulmonary and CT surgery is on board. Encourage incentive spirometry. Continue with home medications and pain management with Dilaudid. Follow-up closely.
--- NOTE | 2025-03-15 14:12 | P.PN ---
Subjective Progress Note Date: 03/14/25 64-year-old male with a known history of COPD, obstructive sleep apnea not on CPAP, osteoarthritis, chronic back pain and recent left upper lobe spiculated nodule highly suspicious for bronchogenic carcinoma. Patient underwent bronchoscopy and biopsy on 01/02/2025. Findings consistent with non-small cell lung cancer and was referred to CT surgery. Patient underwent video-assisted thoracoscopic surgery with lysis of pleural adhesions, left upper lobectomy and mediastinal lymph node dissection on 02/12/2025. Pathology was positive for invasive moderately differentiated pulmonary adenocarcinoma. Margins negative for malignancy. 3 hilar lymph nodes negative for metastasis. Patient presents to ER with complaints of worsening shortness of breath and left-sided chest pain at the previous incision site. Chest x-ray showed prominent left-sided pneumothorax associated subcutaneous emphysema. Patient was placed on left chest per event by CT surgery team. Repeat chest x-ray in the showed improvement in the left-sided pneumothorax. Patient is currently sitting in the chair. Awake alert and oriented. Currently on room air. Still complains of left upper chest pain. Thora vent attached to atrium with suction Laboratory data showed WBC 6.23 hemoglobin 13.5 and platelets 325 03/14/2025 Patient is seen and evaluated in follow-up on the regular medical floor. He is sitting up in a chair at the bedside. Awake and alert in no acute distress. He is maintaining good O2 saturations in the 90s on room air. He is been afebrile. Hemodynamically stable. -- Left-sided Thora vent remains in place to Pleur-evac to wall suction. A leak continues. - Chest x-ray reveals a small to moderate left apical pneumothorax with left apical chest tube in place. Persistent diffuse left lung acute infiltrates and/or atelectasis. Thoracic surgery on board and recommending to continue pleural vent to continuous wall suction throughout the weekend; recommending extended tubing so patient is able to ambulate in the room He remains on heparin for DVT prophylaxis. Pain is well-controlled. Objective - Vital Signs Vital signs: Vital Signs Temp 97.7 F 03/14/25 07:42 Pulse 84 03/14/25 07:42 Resp 16 03/14/25 07:42 BP 149/91 03/14/25 07:42 Pulse Ox 92 L 03/14/25 07:42 FiO2 Intake & Output 03/13/25 03/14/2525 18:59 06:59 18:59 Intake Total 540 590 480 Output Total 500 110 Balance 40 480 480 Intake: Oral 540 590 480 Output: Chest Tube Drainage 10 Thora-Vent Left Anterior 10 Chest Urine 500 100 Other: Voiding Method Urinal # Voids 1 2 - Exam Patient is lying in the bed comfortably, no acute distress, awake alert and oriented.. HEENT: Normocephalic. Neck is supple. Pupils reactive. Nostrils clear. Oral cavity is moist. Neck reveals no JVD, carotid bruits, or thyromegaly. CHEST EXAMINATION: Trachea is central. Symmetrical expansion. Lung johnson clear to auscultation and percussion. Left upper posterior chest wall crepitus CARDIAC: Normal S1, S2 with no gallops. No murmurs ABDOMEN: Soft. Bowel sounds normal. No organomegaly. No abdominal bruits. Extremities: reveal no edema. No clubbing or cyanosis Neurologically awake, alert, oriented x3 with well-coordinated movements. No focal deficits noted Skin: No rash or skin lesions. Psychiatric: Coperative. Nonsuicidal Musculoskeletal: No joint swelling or deformity. Normal range of motion - Labs CBC & Chem 7: 03/13/25 04:22 03/13/25 04:22 Assessment and Plan Assessment: Left-sided pneumothorax with subcutaneous emphysema. Status post Thora vent insertion with improvement in the pneumothorax as per repeat chest x-ray Non-small cell lung cancer/adenocarcinoma status post left upper lobectomy, mediastinal lymph node dissection and cryoablation of the left intercostal nerves on 02/12/2025 COPD not in exacerbation Hypertension Nicotine addiction Obstructive sleep apnea not on CPAP at home Degenerative disease Chronic back pain History of cervical spine surgery History of ADHD DVT prophylaxis heparin subcu Plan: Patient is status post Thora vent insertion by CT surgery team with improvement in left-sided pneumothorax on repeat x-ray. Continue with suction -20 cc H2O. Pulmonary and CT surgery is on board. Encourage incentive spirometry. Continue with home medications and pain management with Dilaudid. Follow-up closely.
--- NOTE | 2025-03-15 14:13 | P.PN ---
Subjective Progress Note Date: 03/15/25 64-year-old male with a known history of COPD, obstructive sleep apnea not on CPAP, osteoarthritis, chronic back pain and recent left upper lobe spiculated nodule highly suspicious for bronchogenic carcinoma. Patient underwent bronchoscopy and biopsy on 01/02/2025. Findings consistent with non-small cell lung cancer and was referred to CT surgery. Patient underwent video-assisted thoracoscopic surgery with lysis of pleural adhesions, left upper lobectomy and mediastinal lymph node dissection on 02/12/2025. Pathology was positive for invasive moderately differentiated pulmonary adenocarcinoma. Margins negative for malignancy. 3 hilar lymph nodes negative for metastasis. Patient presents to ER with complaints of worsening shortness of breath and left-sided chest pain at the previous incision site. Chest x-ray showed prominent left-sided pneumothorax associated subcutaneous emphysema. Patient was placed on left chest per event by CT surgery team. Repeat chest x-ray in the showed improvement in the left-sided pneumothorax. Patient is currently sitting in the chair. Awake alert and oriented. Currently on room air. Still complains of left upper chest pain. Thora vent attached to atrium with suction Laboratory data showed WBC 6.23 hemoglobin 13.5 and platelets 325 03/14/2025 Patient is seen and evaluated in follow-up on the regular medical floor. He is sitting up in a chair at the bedside. Awake and alert in no acute distress. He is maintaining good O2 saturations in the 90s on room air. He is been afebrile. Hemodynamically stable. -- Left-sided Thora vent remains in place to Pleur-evac to wall suction. A leak continues. - Chest x-ray reveals a small to moderate left apical pneumothorax with left apical chest tube in place. Persistent diffuse left lung acute infiltrates and/or atelectasis. Thoracic surgery on board and recommending to continue pleural vent to continuous wall suction throughout the weekend; recommending extended tubing so patient is able to ambulate in the room He remains on heparin for DVT prophylaxis. Pain is well-controlled. 03/15/2025 Patient is seen and evaluated in follow-up on the regular medical floor. He is currently awake and alert in no acute distress. Sitting up in a chair. Denies any worsening shortness of breath, cough or congestion. Continues to maintain good O2 saturations in the upper 90s on room air. Has been afebrile. Hemodynamically stable. Today's chest x-ray just reveals a small left apical pneumothorax. Thora vent remains in place. Still with a positive leak. Continues to work with the incentive spirometer. Heparin for DVT prophylaxis. Objective - Vital Signs Vital signs: Vital Signs Temp 97.7 F 03/15/25 07:00 Pulse 56 L 03/15/25 07:00 Resp 16 03/15/25 07:00 BP 118/90 03/15/25 07:00 Pulse Ox 98 03/15/25 07:00 FiO2 Intake & Output 03/14/25 03/15/25 03/15/25 18:59 06:59 18:59 Intake Total 0 590 Output Total 40 650 Balance 1999 Intake: Oral 2039 590 Output: Chest Tube Drainage 40 Thora-Vent Left Anterior 40 Chest Urine 650 Other: Voiding Method Toilet Urinal # Voids 4 1 - Exam Patient is lying in the bed comfortably, no acute distress, awake alert and oriented.. HEENT: Normocephalic. Neck is supple. Pupils reactive. Nostrils clear. Oral cavity is moist. Neck reveals no JVD, carotid bruits, or thyromegaly. CHEST EXAMINATION: Trachea is central. Symmetrical expansion. Lung johnson clear to auscultation and percussion. Left upper posterior chest wall crepitus CARDIAC: Normal S1, S2 with no gallops. No murmurs ABDOMEN: Soft. Bowel sounds normal. No organomegaly. No abdominal bruits. Extremities: reveal no edema. No clubbing or cyanosis Neurologically awake, alert, oriented x3 with well-coordinated movements. No focal deficits noted Skin: No rash or skin lesions. Psychiatric: Coperative. Nonsuicidal Musculoskeletal: No joint swelling or deformity. Normal range of motion - Labs CBC & Chem 7: 03/13/25 04:22 03/13/25 04:22 Assessment and Plan Assessment: Left-sided pneumothorax with subcutaneous emphysema. Status post Thora vent insertion with improvement in the pneumothorax as per repeat chest x-ray Non-small cell lung cancer/adenocarcinoma status post left upper lobectomy, mediastinal lymph node dissection and cryoablation of the left intercostal nerves on 02/12/2025 COPD not in exacerbation Hypertension Nicotine addiction Obstructive sleep apnea not on CPAP at home Degenerative disease Chronic back pain History of cervical spine surgery History of ADHD DVT prophylaxis heparin subcu Plan: Patient is status post Thora vent insertion by CT surgery team with improvement in left-sided pneumothorax on repeat x-ray. Continue with suction -20 cc H2O. Pulmonary and CT surgery is on board. Encourage incentive spirometry. Continue with home medications and pain management with Dilaudid. Follow-up closely.
--- NOTE | 2025-03-16 07:05 | XR ---
EXAMINATION TYPE: XR chest 1V portable DATE OF EXAM: 03/16/2025 6:50 AM COMPARISON: Chest radiograph from one day prior. CLINICAL INDICATION: Male, 64 years old with history of Pneumothorax; [facility] FINDINGS: Lungs/Pleura: There is no evidence of right pleural effusion, focal consolidation, or right pneumotho rax. Small left pneumothorax. Blunting of the left costophrenic angle. Pulmonary vascularity: Unremarkable. Heart/mediastinum: Cardiomediastinal silhouette is unremarkable. Musculoskeletal: No acute osseous pathology. There is fixation hardware in the lower cervical spine. Other findings: Subcutaneous emphysema scattered throughout the visualized thorax. Lines/Tubes: Left thoracotomy tube is present without evidence of pneumothorax. IMPRESSION: 1. Stable left thoracotomy tube with small left apical pneumothorax. 2. Small left pleural effusion. [facility], , 03/16/2025 7:03 AM
--- NOTE | 2025-03-16 09:01 | P.PN ---
Subjective Progress Note Date: 03/16/25 Principal diagnosis: Left-sided pneumothorax with subcutaneous emphysema. Previous medical history of non-small cell lung cancer consistent with adenocarcinoma status post left up per lobectomy with mediastinal lymph node dissection and, cryoablation of left intercostal nerves on 02/12/2025, hypertension, chronic obstructive pulmonary disease, obstructive sleep apnea without BiPAP use, chronic back pain, ADHD, and chronic ongoing tobacco dependence in the form of vaping. Status post day #5 placement of left Thoravent by the emergency room physicians The patient was seen and examined this morning sitting up in a recliner on the medical oncology unit in no acute distress although he is irritated and wants to know the plan. States pain is mostly controlled on current medication regimen. Denies significant shortness of breath. Remains on room air with oxygen saturat ion in the high 90s, able to achieve 3000 mL on incentive spirometry. Left sided Thora-vent remains to continuous wall suction, intermittent airleak present with expiration and coughing, 250 mL thin serosanguineous drainage total in atrium. Chest x-ray reviewed with Dr. Umanzor. Objective - Vital Signs Vital signs: Vital Signs Temp 98.1 F 03/16/25 07:21 Pulse 59 L 03/16/25 07:21 Resp 16 03/16/25 07:21 BP 160/84 03/16/25 07:21 Pulse Ox 98 03/16/25 07:21 FiO2 Intake & Output 03/15/25 03/16/25 03/16/25 18:59 06:59 18:59 Intake Total 1560 Output Total 420 Balance 1140 Intake: Oral 1560 Output: Chest Tube Drainage 20 Thora-Vent Left Anterior 20 Chest Urine 400 Other: Voiding Method Toilet Urinal # Voids 4 3 - Exam CONSTITUTIONAL: Appears comfortable, cooperative, no acute distress RESPIRATORY: Lungs sounds diminished bilaterally. Respirations even, nonlabored. Currently on room air with oxygen saturation 98%. Able to achieve 3000 mL on incentive spirometry. Strong cough. CARDIOVASCULAR: S1, S2 present. Regular rate and rhythm. Palpable peripheral pulses bilaterally. No edema present. No calf pain or tenderness noted GASTROINTESTINAL: Abdomen soft, nontender, nondistended. Active bowel sounds present 4 quadrants. Tolerating diet GENITOURINARY: Continues to void INTEGUMENTARY: Skin is warm and dry NEUROLOGIC: Cranial nerves II through XII intact MUSKULOSKELETAL: Able to move all extremities, strength equal bilaterally, gait normal PSYCHIATRIC: Alert and oriented to person place and time, appropriate affect, intact judgment and insight INVASIVE LINES AND TUBES: Left sided Thora-vent present to continuous wall suction, intermittent airleak present with expiration and coughing, minimal drainage in the last 24 hours - Allied health notes Allied health notes reviewed: nursing - Labs CBC & Chem 7: 03/13/25 04:22 03/13/25 04:22 - Imaging and Cardiology Chest x-ray: report reviewed, image reviewed Assessment and Plan Assessment: Left-sided pneumothorax with subcutaneous emphysema, status post placement of left Thoravent by the emergency room physicians History of non-small cell lung cancer consistent with adenocarcinoma status post left upper lobectomy with mediastinal lymph node dissection and, cryoablation of left intercostal nerves on 02/12/2025 Hypertension Chronic obstructive pulmonary disease Obstructive sleep apnea without BiPAP use Chronic back pain ADHD Chronic ongoing tobacco dependence in the form of vaping Plan: Thora-vent placed to waterseal, will obtain chest x-ray in a couple of hours Dr. Umanzor will see the patient and discuss plan Encourage incentive spirometry use Will monitor daily chest x-rays Reinforced smoking cessation Pain control per current medication regimen Medical management of other comorbidities per internal medicine, pulmonology More recommendations to follow
--- NOTE | 2025-03-16 11:21 | XR ---
EXAMINATION TYPE: XR chest 1V portable DATE OF EXAM: 03/16/2025 10:50 AM COMPARISON: Chest radiographs from 03/16/2025. CLINICAL INDICATION: Male, 64 years old with history of Eval PTX off suction; [facility] TECHNIQUE: XR chest 1V portable Frontal view of the chest. FINDINGS: Lungs/Pleura: There is no evidence of right pleural effusion, focal consolidation, or right pneumotho rax. Small left apical pneumothorax may be fractionally larger. Blunting of the left costophrenic an gle. Pulmonary vascularity: Unremarkable. Heart/mediastinum: Cardiomediastinal silhouette is unremarkable. Musculoskeletal: No acute osseous pathology. There is fixation hardware in the lower cervical spine. Other findings: Subcutaneous emphysema scattered throughout the visualized thorax. Lines/Tubes: Left thoracotomy tube is present without evidence of pneumothorax. IMPRESSION: 1. Fracture larger left apical pneumothorax. 2. Small left pleural effusion. [facility], , 03/16/2025 11:19 AM
--- NOTE | 2025-03-16 15:26 | P.PN ---
Subjective Progress Note Date: 03/16/25 This is a 64-year-old white male with past medical history significant for tobacco dependence, COPD, obstructive sleep apnea without home CPAP, osteoarthritis, chronic back pain. His primary care provider is Dr. Michael Recinos. He also follows in the pulmonary office with Dr. Cotto. Of note, patient recently found to have a 2.9 x 2.4 cm left upper lobe spiculated nodule that was highly suspicious for bronchogenic carcinoma. There is an additional 0.9 x 0.7 cm noncalcified nodule in the left lower lobe. Subsequently, underwent Ion bronchoscopy and biopsy on 01/02/2025. Findings consistent was n on-small cell lung carcinoma. He was referred to cardiothoracic surgery. He did undergo a video-assisted thorascopic surgery with lysis of pleural adhesions, left upper lobectomy, and mediastinal lymph node dissection on . Had a relatively uneventful postoperative course. 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 Margins negative for malignancy. 3 hilar lymph nodes negative for metastasis. Presented to the emergency department yesterday with a chief complaint of increased shortness of breath, gurgling coming from his left chest at the previous incision site, and increased left-sided chest pain. Chest x-ray showing a more prominent left-sided pneumothorax with associated subcutaneous emphysema. Patient did have a left chest ThoraVent placed by the cardiothoracic team. Repeat chest x-ray showing improvement in the left-sided pneumothorax. Patient currently being evaluated on the general medical floor. He is sitting up in bed without any distress. On room air. Reporting significant amount of left lateral/posterior back pain. Continues to have some subcutaneous emphysema at the previous surgical incision site. His ThoraVent is attached to an atrium with -20 cm H2O suction. There is an intermittent airleak. Incentive spirometer is at bedside. CBC from admission unremarkable. CMP also unremarkable, electrolytes WDL, creatinine 0.8, glucose 117. Current vital signs: Afebrile, heart rate 64 bpm, blood pressure 143/81 mmHg, nontachypneic, SpO2 recorded at 93% on room air. The patient is seen today March 13, 2025 in follow-up on the regular medical floor. He is currently sitting up in bed. Awake and alert in no acute distress. Maintaining good O2 saturations in the mid 90s on room air. He is afebrile. Hemodynamically stable. Left-sided Thora vent remains in place to Pleur-evac and wall suction. Still remains without positive leak. Chest x-ray shows small to moderate size left apical pneumothorax with left apical chest tube in place. Persistent diffuse left lung acute infiltrates and/or atelectasis. He is encouraged regarding the increased use of the incentive spirometer. White count 10.7. Hemoglobin 11.6. Platelets 282. Sodium 139. Potassium 4.6. Bicarb 26. BUN 24. Creatinine 0.9. Glucose 96. He remains on heparin for DVT prophylaxis. The patient is seen today March 14, 2025 in follow-up on the regular medical floor. He is sitting up in a chair at the bedside. Awake and alert in no acute distress. He is maintaining good O2 saturations in the 90s on room air. He is been afebrile. Hemodynamically stable. Left-sided Thora vent remains in place to Pleur-evac to wall suction. A leak continues. Chest x-ray reveals a small to moderate left apical pneumothorax with left apical chest tube in place. Persistent diffuse left lung acute infiltrates and/or atelectasis. No new labs today. He remains on heparin for DVT prophylaxis. Pain is well-controlled. The patient is seen today March 15, 2025 in follow-up on the regular medical floor. He is currently awake and alert in no acute distress. Sitting up in a chair. Denies any worsening shortness of breath, cough or congestion. Continues to maintain good O2 saturations in the upper 90s on room air. Has been afebrile. Hemodynamically stable. Today's chest x-ray just reveals a small left apical pneumothorax. Thora vent remains in place. Still with a positive leak. Continues to work with the incentive spirometer. Heparin for DVT prophylaxis. On 03/16/2025, the patient is being seen for a follow-up. The patient is sitting up in the chair and the patient is calm and comfortable on room air oxygen. The Thora vent catheter is still in place and insertion to a waterseal. There is still intermittent air leak. I reviewed the follow-up chest x-ray the patient continues to have a left apical pneumothorax and a small left-sided pleural effusion. No significant subcutaneous emphysema. Hemodynamically stable. The white cell count at 7.7 hemoglobin 11.6, electrolytes are all within normal limits. Cardiothoracic surgery is on the case. The patient continues to use the incentive spirometer. The patient had the Torbert inserted in the Emergency Department and he is status post day #5 following the catheter insertion. He is known to have non-small cell lung cancer consistent with adenocarcinoma of the left upper lobe and the patient underwent a left upper lobectomy and mediastinal lymph node dissection and cryoablation of the left intercostal nerves and surgery was done on 02/12/2025. He is known to have COPD, hypertension, obstructive sleep apnea and is not utilizing CPAP therapy. He is known to have chronic back pain and his body mass index is 33.6. Objective - Vital Signs Vital signs: Vital Signs Temp 98.5 F 03/16/25 12:47 Pulse 50 L 03/16/25 12:47 Resp 16 03/16/25 12:47 BP 146/76 03/16/25 12:47 Pulse Ox 99 03/16/25 12:47 FiO2 Intake & Output 03/15/25 03/16/25 03/16/25 18:59 06:59 18:59 Intake Total 1560 Output Total 420 Balance 1140 Intake: Oral 1560 Output: Chest Tube Drainage 20 Thora-Vent Left Anterior 20 Chest Urine 400 Other: Voiding Method Toilet Urinal # Voids 4 3 - Exam The patient appeared well nourished and normally developed. Vital signs as documented. Head exam is unremarkable. No scleral icterus or corneal arcus noted. Neck is without jugular venous distension, thyromegaly, or carotid bruits. Carotid upstrokes are brisk bilaterally. Minimal subcutaneous emphysema seen in the left neck area. Lungs are clear to auscultation and percussion. Diminished breath on the left compared to the right. The patient has a Thora vent anterior located over the left anterior chest area. The thora vent is attached to waterseal. Intermittent airleak is still present. Cardiac exam reveals the PMI to be normally sized and situated. Rhythm is regular. First and second heart sounds normal. No murmurs, rubs or gallops. Abdominal exam reveals normal bowel sounds, no masses, no organomegaly and no aortic enlargement. Extremities are nonedematous and both femoral and pedal pulses are normal. Examination of the skin revealed no evidence of significant rashes, suspicious appearing nevi or other concerning lesions. Neurologically, the patient is awake and alert and the patient does not have any focal neurological deficit. Cranial nerves are essentially intact. - Labs CBC & Chem 7: 03/13/25 04:22 03/13/25 04:22 Assessment and Plan Plan: Postoperative left-sided pneumothorax with subcutaneous emphysema, status post Thora vent insertion, follow-up chest x-ray showing slight improvement in left- sided pneumothorax. No tension-like features. The Thora vent was taken off suction and is/to waterseal. Repeat chest x-ray shows a stable left upper pne umothorax. Minimal subcutaneous emphysema. Non-small cell lung cancer/adenocarcinoma, status post left upper lobectomy, mediastinal lymph node dissection, and cryoablation of left intercostal nerves, on 02/12/2025 Benign essential hypertension Chronic obstructive pulmonary disease, stable and inactive Chronic ongoing nicotine dependence Obstructive sleep apnea syndrome Degenerative joint disease Chronic back pain History of ADHD Plan: Stable left-sided pneumothorax Hemodynamically stable Intermittent airleak Suggest keeping the Thora vent remains in place and sending the patient home with a catheter in place with outpatient monitoring. Continues with a positive leak, intermittent Case will be discussed with cardiothoracic surgery Increased use of the incentive spirometer Increase his activity as tolerated Heparin for DVT prophylaxis We will continue to follow
[2025-03-16 19:57] VITALS: RESP 18
[2025-03-17 07:48] VITALS: BP 164/83; PULSE 50; TEMP 98.1
[2025-03-17] MEDS: PANTOPRAZOLE 40 MG TABLET PO SCH (08:03)
--- NOTE | 2025-03-17 08:13 | XR ---
EXAMINATION TYPE: XR chest 1V portable DATE OF EXAM: 03/17/2025 7:53 AM COMPARISON: Chest radiographs from 03/16/2025. CLINICAL INDICATION: Male, 64 years old with history of left ptx; TECHNIQUE: XR chest 1V portable Frontal view of the chest. FINDINGS: Lungs/Pleura: There is no evidence of right pleural effusion, focal consolidation, or right pneumotho rax. Small left apical pneumothorax may be fractionally larger. Blunting of the left costophrenic an gle. Pulmonary vascularity: Unremarkable. Heart/mediastinum: Cardiomediastinal silhouette is unremarkable. Musculoskeletal: No acute osseous pathology. There is fixation hardware in the lower cervical spine. Other findings: Subcutaneous emphysema scattered throughout the visualized thorax. Lines/Tubes: Left thoracotomy tube is present without evidence of pneumothorax. IMPRESSION: 1. Stable larger left apical pneumothorax. 2. Small left pleural effusion. [facility], , 03/17/2025 8:11 AM
[2025-03-17 08:17] LABS: Basophils # (A) 0.04 X 10*3/uL (0.00-0.10); Basophils % (A) 0.5 %; Eosinophils # (A) 0.72 X 10*3/uL (0.04-0.35); Eosinophils % (A) 9.8 %; HGB 12.6 g/dL (13.0-17.0); Lymphocytes # (A) 2.65 X 10*3/uL (0.90-5.00); MCH 31.3 pg (27.0-32.0); MCHC 32.3 g/dL (32.0-37.0); MCV 96.8 FL (80.0-97.0); Mean Platelet Volume 10.3 FL (9.5-12.2); Monocytes # (A) 0.64 X 10*3/uL (0.20-1.00); Monocytes % (A) 8.7 %; NRBC Per 100 WBC 0 X 10*3/uL (0.00-0.01); Neutrophils % (A) 44.7 %; Platelet Count 281 X 10*3/uL (140-440); RBC 4.03 X 10*6/uL (4.40-5.60); WBC 7.37 X 10*3/uL (4.50-10.00)
[2025-03-17 08:40] LABS: BUN/Creat Ratio 24.75 Ratio (12.00-20.00); Blood Urea Nitrogen 19.8 mg/dL (9.0-27.0); Calcium 9.1 mg/dL (8.7-10.3); Carbon Dioxide 24.9 mmol/L (21.6-31.8); Chloride 101 mmol/L (96-109); Glucose 101 mg/dL (70-110); Potassium 4.8 mmol/L (3.5-5.5); Sodium 136 mmol/L (135-145)
--- NOTE | 2025-03-17 09:26 | P.PN ---
Subjective Progress Note Date: 03/17/25 Principal diagnosis: Left-sided pneumothorax with subcutaneous emphysema. Previous medical history of non-small cell lung cancer consistent with adenocarcinoma status post left up per lobectomy with mediastinal lymph node dissection and, cryoablation of left intercostal nerves on 02/12/2025, hypertension, chronic obstructive pulmonary disease, obstructive sleep apnea without BiPAP use, chronic back pain, ADHD, and chronic ongoing tobacco dependence in the form of vaping. Status post day #6 placement of left Thoravent by the emergency room physicians The patient was seen and examined this morning sitting up in a recliner on the medical oncology unit in no acute distress although he is insistent he wants to go home. States pain is mostly controlled on current medication regimen. Denies significant shortness of breath. Remains on room air with oxygen saturation in the high 90s, able to achieve 3000 mL on incentive spirometry. Left sided Thora-vent remains to waterseal since yesterday, intermittent airleak present with coughing. Chest x-ray reviewed with Dr. Umanzor, also discussed yesterday with Dr. Preston. Objective - Vital Signs Vital signs: Vital Signs Temp 98.1 F 03/17/25 07:20 Pulse 50 L 03/17/25 07:20 Resp 18 03/17/25 07:20 BP 164/83 03/17/25 07:20 Pulse Ox 97 03/17/25 07:20 FiO2 Intake & Output 03/16/25 03/17/25 03/17/25 18:59 06:59 18:59 Intake Total 1080 300 Output Total 0 225 Balance 1080 75 Intake: Oral 1080 300 Output: Chest Tube Drainage 0 Thora-Vent Left Anterior 0 Chest Urine 225 Other: # Voids 2 - Exam CONSTITUTIONAL: Appears comfortable, cooperative, no acute distress RESPIRATORY: Lungs sounds diminished bilaterally. Respirations even, nonlabored. Currently on room air with oxygen saturation 97%. Able to achieve 3000 mL on incentive spirometry. Strong cough. CARDIOVASCULAR: S1, S2 present. Regular rate and rhythm. Palpable peripheral pulses bilaterally. No edema present. No calf pain or tenderness noted GASTROINTESTINAL: Abdomen soft, nontender, nondistended. Active bowel sounds present 4 quadrants. Tolerating diet GENITOURINARY: Continues to void INTEGUMENTARY: Skin is warm and dry NEUROLOGIC: Cranial nerves II through XII intact MUSKULOSKELETAL: Able to move all extremities, strength equal bilaterally, gait normal PSYCHIATRIC: Alert and oriented to person place and time, appropriate affect, intact judgment and insight INVASIVE LINES AND TUBES: Left sided Thora-vent present to waterseal, intermittent airleak present with coughing - Allied health notes Allied health notes reviewed: nursing - Labs CBC & Chem 7: 03/17/25 03:52 03/17/25 03:52 Labs: Abnormal Lab Results - Last 24 Hours (Table) 03/17/25 03/17/25 Range/Units 03:52 03:52 RBC 4.03 L (4.40-5.60) X 10*6/uL Hgb 12.6 L (13.0-17.0) g/dL Hct 39.0 L (39.6-50.0) % Eosinophils # 0.72 H (0.04-0.35) X 10*3/uL BUN/Creatinine Ratio 24.75 H (12.00-20.00) Ratio - Imaging and Cardiology Chest x-ray: report reviewed, image reviewed Assessment and Plan Assessment: Left-sided pneumothorax with subcutaneous emphysema, status post placement of left Thoravent by the emergency room physicians History of non-small cell lung cancer consistent with adenocarcinoma status post left upper lobectomy with mediastinal lymph node dissection and, cryoablation of left intercostal nerves on 02/12/2025 Hypertension Chronic obstructive pulmonary disease Obstructive sleep apnea without BiPAP use Chronic back pain ADHD Chronic ongoing tobacco dependence in the form of vaping Plan: We did remove atrium and left Thora-vent off suction Patient may be discharged from our standpoint, he was trained what to look for regarding air leak He was given chest x-ray prescription to return to the hospital next Sunday with plan to see patient by our service. If airleak resolved and no further increase in pneumothorax will remove Thora-vent at that time. If patient still has airleak the patient will continue with Thora-vent in place and visit with Dr. Umanzor the following week. This was discussed in detail with the patient and he verbalized agreement. Our contact information was given to him for any questions or concerns Encourage incentive spirometry use Reinforced smoking cessation Pain control per current medication regimen Medical management of other comorbidities per internal medicine, pulmonology
--- NOTE | 2025-03-17 09:28 | P.PN ---
Subjective Progress Note Date: 03/16/25 64-year-old male with a known history of COPD, obstructive sleep apnea not on CPAP, osteoarthritis, chronic back pain and recent left upper lobe spiculated nodule highly suspicious for bronchogenic carcinoma. Patient underwent bronchoscopy and biopsy on 01/02/2025. Findings consistent with non-small cell lung cancer and was referred to CT surgery. Patient underwent video-assisted thoracoscopic surgery with lysis of pleural adhesions, left upper lobectomy and mediastinal lymph node dissection on 02/12/2025. Pathology was positive for invasive moderately differentiated pulmonary adenocarcinoma. Margins negative for malignancy. 3 hilar lymph nodes negative for metastasis. Patient presents to ER with complaints of worsening shortness of breath and left-sided chest pain at the previous incision site. Chest x-ray showed prominent left-sided pneumothorax associated subcutaneous emphysema. Patient was placed on left chest per event by CT surgery team. Repeat chest x-ray in the showed improvement in the left-sided pneumothorax. Patient is currently sitting in the chair. Awake alert and oriented. Currently on room air. Still complains of left upper chest pain. Thora vent attached to atrium with suction Laboratory data showed WBC 6.23 hemoglobin 13.5 and platelets 325 03/14/2025 Patient is seen and evaluated in follow-up on the regular medical floor. He is sitting up in a chair at the bedside. Awake and alert in no acute distress. He is maintaining good O2 saturations in the 90s on room air. He is been afebrile. Hemodynamically stable. -- Left-sided Thora vent remains in place to Pleur-evac to wall suction. A leak continues. - Chest x-ray reveals a small to moderate left apical pneumothorax with left apical chest tube in place. Persistent diffuse left lung acute infiltrates and/or atelectasis. Thoracic surgery on board and recommending to continue pleural vent to continuous wall suction throughout the weekend; recommending extended tubing so patient is able to ambulate in the room He remains on heparin for DVT prophylaxis. Pain is well-controlled. 03/15/2025 Patient is seen and evaluated in follow-up on the regular medical floor. He is currently awake and alert in no acute distress. Sitting up in a chair. Denies any worsening shortness of breath, cough or congestion. Continues to maintain good O2 saturations in the upper 90s on room air. Has been afebrile. Hemodynamically stable. Today's chest x-ray just reveals a small left apical pneumothorax. Thora vent remains in place. Still with a positive leak. Continues to work with the incentive spirometer. Heparin for DVT prophylaxis. 03/16/2025 Patient is seen in follow-up today with CT surgery and pulmonary following and patient continues with Pleurx catheter on the left and chest x-ray reports fracture larger left apical pneumothorax with a small left pleural effusion with continued subcutaneous emphysema scattered throughout the visualized thorax, left thoracotomy tube is present without evidence of pneumothorax. Patient wou ld like to go home although was told by CT surgery may need another day. Patient also being followed by pulmonary and has a continued intermittent air leak suggesting to keep the Thora vent in place and will likely be going home with follow-up in the outpatient setting. Patient encouraged to increase incentive spirometer use at least 10 times every hour while awake and encouraged to increase activity as tolerated. Patient is tolerating room air with oxygen saturations above 96%. Patient is extremely anxious and wants to go home. Case was discussed with CT surgery and pulmonary with likely discharge planning in 24 hours Review of systems: Constitutional: No reports of fatigue, fever, or chills Cardiovascular: No reports of chest pain or palpitations Respiratory: No reports of shortness of breath or cough GI: No reports of nausea, vomiting, or diarrhea : No reports of dysuria or retention Neurovascular: No reports of weakness or numbness All medications have been reviewed Physical exam: Patient is sitting up in the chair comfortably, no acute distress, awake alert and oriented.. Well-developed, elderly appearing, obese HEENT: Normocephalic. Neck is supple. Pupils reactive. Nostrils clear. Oral cavity is moist. Neck reveals no JVD, carotid bruits, or thyromegaly. CHEST EXAMINATION: Trachea is central. Symmetrical expansion. Lung johnson clear to auscultation and percussion. Left upper posterior chest wall crepitus CARDIAC: Normal S1, S2 with no gallops. No murmurs ABDOMEN: Soft. Bowel sounds normal. No organomegaly. No abdominal bruits. Extremities: reveal no edema. No clubbing or cyanosis Neurologically awake, alert, oriented x3 with well-coordinated movements. No focal deficits noted Skin: No rash or skin lesions. Psychiatric: Cooperative. Non-suicidal, mildly anxious Musculoskeletal: No joint swelling or deformity. Normal range of motion Assessment: Left-sided pneumothorax with subcutaneous emphysema. Status post Thora vent insertion with improvement in the pneumothorax as per repeat chest x-ray. Patient will likely go home with for event and reevaluate CT surgery in 1 week Non-small cell lung cancer/adenocarcinoma status post left upper lobectomy, mediastinal lymph node dissection and cryoablation of the left intercostal nerves on 02/12/2025 COPD not in exacerbation Hypertension Nicotine addiction Obstructive sleep apnea not on CPAP at home Degenerative disease Chronic back pain Obesity with a BMI of 33.6 History of cervical spine surgery History of ADHD DVT prophylaxis heparin subcu Full code Plan: Patient is status post Thora vent insertion by CT surgery team with improvement in left-sided pneumothorax on repeat x-ray. Continue with suction -20 cc H2O. Mild air leak present and chest x-ray reviewed as mentioned previously pulmonary and CT surgery following and will follow-up with chest x-ray tomorrow and if no worsening may consider discharge planning in 24 hours. Patient will likely go home with Thora vent and close outpatient follow-up with CT surgery and pulmonary Will follow-up on repeat labs in the a.m. Possible discharge in 24 hours The impression and plan of care has been dictated by Shoshana Castaneda, Nurse Practitioner as directed. Dr. Ceasar MD I have performed a history and examination and MDM of this patient, discussed the same with the dictator, and agree with the dictator's assessment and plan as written ,documented as a scribe. Based on total visit time, I have performed more than 50% of the visit. Objective - Vital Signs Vital signs: Vital Signs Temp 98.1 F 03/16/25 07:21 Pulse 59 L 03/16/25 07:21 Resp 16 03/16/25 07:21 BP 160/84 03/16/25 07:21 Pulse Ox 98 03/16/25 07:21 FiO2 Intake & Output 03/15/25 03/16/25 03/16/25 18:59 06:59 18:59 Intake Total 1560 Output Total 420 Balance 1140 Intake: Oral 1560 Output: Chest Tube Drainage 20 Thora-Vent Left Anterior 20 Chest Urine 400 Other: Voiding Method Toilet Urinal # Voids 4 3 - Labs CBC & Chem 7: 03/17/25 03:52 03/17/25 03:52
--- NOTE | 2025-03-17 11:48 | P.PN ---
Subjective Progress Note Date: 03/17/25 This is a 64-year-old white male with past medical history significant for tobacco dependence, COPD, obstructive sleep apnea without home CPAP, osteoarthritis, chronic back pain. His primary care provider is Dr. Michael Recinos. He also follows in the pulmonary office with Dr. Cotto. Of note, patient recently found to have a 2.9 x 2.4 cm left upper lobe spiculated nodule that was highly suspicious for bronchogenic carcinoma. There is an additional 0.9 x 0.7 cm noncalcified nodule in the left lower lobe. Subsequently, underwent Ion bronchoscopy and biopsy on 01/02/2025. Findings consistent was n on-small cell lung carcinoma. He was referred to cardiothoracic surgery. He did undergo a video-assisted thorascopic surgery with lysis of pleural adhesions, left upper lobectomy, and mediastinal lymph node dissection on . Had a relatively uneventful postoperative course. 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 Margins negative for malignancy. 3 hilar lymph nodes negative for metastasis. Presented to the emergency department yesterday with a chief complaint of increased shortness of breath, gurgling coming from his left chest at the previous incision site, and increased left-sided chest pain. Chest x-ray showing a more prominent left-sided pneumothorax with associated subcutaneous emphysema. Patient did have a left chest ThoraVent placed by the cardiothoracic team. Repeat chest x-ray showing improvement in the left-sided pneumothorax. Patient currently being evaluated on the general medical floor. He is sitting up in bed without any distress. On room air. Reporting significant amount of left lateral/posterior back pain. Continues to have some subcutaneous emphysema at the previous surgical incision site. His ThoraVent is attached to an atrium with -20 cm H2O suction. There is an intermittent airleak. Incentive spirometer is at bedside. CBC from admission unremarkable. CMP also unremarkable, electrolytes WDL, creatinine 0.8, glucose 117. Current vital signs: Afebrile, heart rate 64 bpm, blood pressure 143/81 mmHg, nontachypneic, SpO2 recorded at 93% on room air. The patient is seen today March 13, 2025 in follow-up on the regular medical floor. He is currently sitting up in bed. Awake and alert in no acute distress. Maintaining good O2 saturations in the mid 90s on room air. He is afebrile. Hemodynamically stable. Left-sided Thora vent remains in place to Pleur-evac and wall suction. Still remains without positive leak. Chest x-ray shows small to moderate size left apical pneumothorax with left apical chest tube in place. Persistent diffuse left lung acute infiltrates and/or atelectasis. He is encouraged regarding the increased use of the incentive spirometer. White count 10.7. Hemoglobin 11.6. Platelets 282. Sodium 139. Potassium 4.6. Bicarb 26. BUN 24. Creatinine 0.9. Glucose 96. He remains on heparin for DVT prophylaxis. The patient is seen today March 14, 2025 in follow-up on the regular medical floor. He is sitting up in a chair at the bedside. Awake and alert in no acute distress. He is maintaining good O2 saturations in the 90s on room air. He is been afebrile. Hemodynamically stable. Left-sided Thora vent remains in place to Pleur-evac to wall suction. A leak continues. Chest x-ray reveals a small to moderate left apical pneumothorax with left apical chest tube in place. Persistent diffuse left lung acute infiltrates and/or atelectasis. No new labs today. He remains on heparin for DVT prophylaxis. Pain is well-controlled. The patient is seen today March 15, 2025 in follow-up on the regular medical floor. He is currently awake and alert in no acute distress. Sitting up in a chair. Denies any worsening shortness of breath, cough or congestion. Continues to maintain good O2 saturations in the upper 90s on room air. Has been afebrile. Hemodynamically stable. Today's chest x-ray just reveals a small left apical pneumothorax. Thora vent remains in place. Still with a positive leak. Continues to work with the incentive spirometer. Heparin for DVT prophylaxis. On 03/16/2025, the patient is being seen for a follow-up. The patient is sitting up in the chair and the patient is calm and comfortable on room air oxygen. The Thora vent catheter is still in place and insertion to a waterseal. There is still intermittent air leak. I reviewed the follow-up chest x-ray the patient continues to have a left apical pneumothorax and a small left-sided pleural effusion. No significant subcutaneous emphysema. Hemodynamically stable. The white cell count at 7.7 hemoglobin 11.6, electrolytes are all within normal limits. Cardiothoracic surgery is on the case. The patient continues to use the incentive spirometer. The patient had the Torbert inserted in the Emergency Department and he is status post day #5 following the catheter insertion. He is known to have non-small cell lung cancer consistent with adenocarcinoma of the left upper lobe and the patient underwent a left upper lobectomy and mediastinal lymph node dissection and cryoablation of the left intercostal nerves and surgery was done on 02/12/2025. He is known to have COPD, hypertension, obstructive sleep apnea and is not utilizing CPAP therapy. He is known to have chronic back pain and his body mass index is 33.6. 03/17/2025, the patient is being seen for a follow-up. Patient is doing well. No specific complaints. Remains on room air oxygen. Repeat chest x-ray was done and it shows a pneumothorax in the left, larger in size. Continues to have air leak through waterseal. Discussed the case with cardiothoracic surgery. The patient will continue his incentive spirometer. The patient will be discharged home with a Thora vent in place to be followed up on outpatient basis. No other new complaints otherwise for now. Hemodynamically stable. The white cell count at 7.3 with a hemoglobin 12.6 and a platelet count of 281. Electrolytes are all within normal limits. Hemodynamically stable. No significant subcutaneous emphysema. Objective - Vital Signs Vital signs: Vital Signs Temp 98.1 F 03/17/25 07:20 Pulse 50 L 03/17/25 07:20 Resp 18 03/17/25 07:20 BP 164/83 03/17/25 07:20 Pulse Ox 97 03/17/25 07:20 FiO2 Intake & Output 03/16/25 03/17/25 03/17/25 18:59 06:59 18:59 Intake Total 1080 300 Output Total 0 225 Balance 1080 75 Intake: Oral 1080 300 Output: Chest Tube Drainage 0 Thora-Vent Left Anterior 0 Chest Urine 225 Other: # Voids 2 - Exam The patient appeared well nourished and normally developed. Vital signs as d ocumented. Head exam is unremarkable. No scleral icterus or corneal arcus noted. Neck is without jugular venous distension, thyromegaly, or carotid bruits. Carotid upstrokes are brisk bilaterally. Minimal subcutaneous emphysema seen in the left neck area. Lungs are clear to auscultation and percussion. Diminished breath on the left compared to the right. The patient has a Thora vent anterior located over the left anterior chest area. The thora vent is attached to waterseal. Intermittent airleak is still present. Cardiac exam reveals the PMI to be normally sized and situated. Rhythm is re gular. First and second heart sounds normal. No murmurs, rubs or gallops. Abdominal exam reveals normal bowel sounds, no masses, no organomegaly and no aortic enlargement. Extremities are nonedematous and both femoral and pedal pulses are normal. Examination of the skin revealed no evidence of significant rashes, suspicious appearing nevi or other concerning lesions. Neurologically, the patient is awake and alert and the patient does not have any focal neurological deficit. Cranial nerves are essentially intact. - Labs CBC & Chem 7: 03/17/25 03:52 03/17/25 03:52 Labs: Abnormal Lab Results - Last 24 Hours (Table) 03/17/25 03/17/25 Range/Units 03:52 03:52 RBC 4.03 L (4.40-5.60) X 10*6/uL Hgb 12.6 L (13.0-17.0) g/dL Hct 39.0 L (39.6-50.0) % Eosinophils # 0.72 H (0.04-0.35) X 10*3/uL BUN/Creatinine Ratio 24.75 H (12.00-20.00) Ratio Assessment and Plan Plan: Postoperative left-sided pneumothorax with subcutaneous emphysema, status post Thora vent insertion, follow-up chest x-ray showing slight improvement in left- sided pneumothorax. No tension-like features. The Thora vent was taken off suction and is/to waterseal. Repeat chest x-ray shows a moderate-sized left upper pneumothorax. Minimal subcutaneous emphysema. Non-small cell lung cancer/adenocarcinoma, status post left upper lobectomy, mediastinal lymph node dissection, and cryoablation of left intercostal nerves, on 02/12/2025 Benign essential hypertension Chronic obstructive pulmonary disease, stable and inactive Chronic ongoing nicotine dependence Obstructive sleep apnea syndrome Degenerative joint disease Chronic back pain History of ADHD Plan: Left sided pneumothorax, hemodynamically stable, intermittent airleak to waterseal. Intermittent airleak still present. Suggest keeping the Thora vent remains in place and sending the patient home with a catheter in place with outpatient monitoring. Case will be discussed with cardiothoracic surgery Increased use of the incentive spirometer Follow-up on outpatient basis.
--- NOTE | 2025-03-23 00:50 | P.DS ---
Providers Date of admission: 03/11/25 18:20 Expected date of discharge: 03/17/25 Attending physician: Lilli Mancuso Consults: 03/11/25 15:46 Consult Physician Routine Consulting Provider: Derian Guan Consult Reason/Comments: Pulmonary [place] Do you want consulting provider notified?: Yes 03/11/25 18:19 Consult Physician Routine Consulting Provider: Rajat Umanzor Consult Reason/Comments: Pneumothorax Do you want consulting provider notified?: Yes Primary care physician: Michael Recinos Hospital Course: Final diagnosis Left-sided pneumothorax with subcutaneous emphysema. Status post Thora vent insertion with improvement in the pneumothorax as per repeat chest x-ray. Patient will likely go home with for event and reevaluate CT surgery in 1 week Non-small cell lung cancer/adenocarcinoma status post left upper lobectomy, mediastinal lymph node dissection and cryoablation of the left intercostal nerves on 02/12/2025 COPD not in exacerbation Hypertension Nicotine addiction Obstructive sleep apnea not on CPAP at home Degenerative disease Chronic back pain Obesity with a BMI of 33.6 History of cervical spine surgery History of ADHD DVT prophylaxis heparin subcu Full code Discharge disposition Patient is being discharged in a stable condition with guarded prognosis to home with home care. Patient will follow-up with Dr. Michael Recinos in the outpatient s etting upon discharge. Patient is to continue with for event of outpatient follow-up with CT surgery as well as pulmonary and oncology as scheduled. Total time taken is greater than 35 minutes. Hospital course This is a 64-year-old male who was recently admitted with left-sided pneumothorax with subcutaneous emphysema noted status post Thora vent placement being followed by CT surgery along with pulmonary. Patient also with COPD which is well-controlled at this time and patient is on room air. Patient with small cell lung carcinoma history need outpatient follow-up. Patient showing some improvements and clinically stable extremely keen on going home. Patient will follow-up with CT surgery will continue with Thora vent and education regarding. Patient reports to feeling well and extremely anxious to go home today. Please refer to other consultation notes for further HPI. Currently no reports of chest pain, shortness of breath, or palpitations. Patient is afebrile. No reports of nausea or vomiting and patient is tolerating diet. Patient will be discharged home today. Physical exam: Gen: This is a 64-year-old male who is awake, alert and oriented x 3, well- developed HEENT: Head is atraumatic, normocephalic. Pupils equal, round. Sclerae is anicteric. NECK: Supple. No JVD. No lymphadenopathy. No thyromegaly. LUNGS: Diminished breath sounds bilaterally clear to auscultation. No wheezes or rhonchi. No intercostal retractions. HEART: S1, S2 are muffled ABDOMEN: Soft. Obese. Bowel sounds are present. No masses. No tenderness. EXTREMITIES: No pedal edema. No calf tenderness. NEUROLOGICAL: Patient is awake, alert and oriented x3. Cranial nerves 2 through 12 are grossly intact. Please refer to medication reconciliation sheet for a list of medications. The impression and plan of care has been dictated by Shoshana Castaneda, Nurse Practitioner as directed. Dr. Ceasar MD I have performed a history and examination and MDM of this patient, discussed the same with the dictator, and agree with the dictator's assessment and plan as written ,documented as a scribe. Based on total visit time, I have performed more than 50% of the visit. Patient Condition at Discharge: Fair Plan - Discharge Summary Discharge Rx Participant: Yes New Discharge Prescriptions: New Acetaminophen Tab [Tylenol] 650 mg PO Q4HR PRN tab PRN Reason: Fever And/Or Mild Pain Pantoprazole [Protonix] 40 mg PO AC-BRKFST #30 tab Continue Metoprolol Succinate (ER) [Toprol XL] 50 mg PO DAILY methocarbamoL [Robaxin] 1,000 mg PO QID PRN PRN Reason: Muscle Spasm Ziprasidone [Geodon] 20 mg PO BID Dextroamphetamine/Amphetamine [Adderall] 20 mg PO BID Morphine Sulfate ER [Ms Contin] 60 mg PO Q8H Discharge Medication List Dextroamphetamine/Amphetamine [Adderall] 20 mg PO BID 12/31/24 [History] Ziprasidone [Geodon] 20 mg PO BID 12/31/24 [History] Metoprolol Succinate (ER) [Toprol XL] 50 mg PO DAILY 02/10/25 [History] Morphine Sulfate ER [Ms Contin] 60 mg PO Q8H 03/11/25 [History] methocarbamoL [Robaxin] 1,000 mg PO QID PRN 03/11/25 [History] Acetaminophen Tab [Tylenol] 650 mg PO Q4HR PRN tab 03/17/25 [Rx] Pantoprazole [Protonix] 40 mg PO AC-BRKFST #30 tab 03/17/25 [Rx] Follow up Appointment(s)/Referral(s): Vikki Winslow NPC [Nurse Practitioner] - 03/24/25 (Obtain chest x-ray at the hospital (with prescription given), then call and I will view the x-ray and come see you) Rajat Umanzor MD [STAFF PHYSICIAN] - (Will make appointment to see Dr. Umanzor based on 03/24/25 appointment w/ nurse practitioner) [facility], [NON-STAFF] - 1 Week Michael Recinos MD [Primary Care Provider] - 1-2 days Patient Instructions/Handouts: Pantoprazole (By mouth), Spontaneous Pneumothorax (DC), Thoracic Pain (ED), Muscle Spasm (ED), Back Pain (ED) Activity/Diet/Wound Care/Special Instructions: Activity limited until follow-up Follow-up with CT surgery outpatient Follow-up with pulmonary outpatient Continue with your event catheter care as instructed Discharge Disposition: HOME WITH HOME HEALTH SERVICES
== END 2025-03-17 11:35 | disposition home health service (06) | DRG 201 ==
LOC: EC 13:07 → 4SSUR 18:20 → 5NMEDONC 20:34
PROVIDERS: ADMIT Hospitalist; ATTEND Hospitalist
PROC: 0W9B30Z Drainage of Left Pleural Cavity with Drainage Device, Percutaneous Approach (ICD-10-PCS; principal; 2025-03-11)
DX: J95.811 Postprocedural pneumothorax (principal); E66.9 Obesity, unspecified; J44.9 Chronic obstructive pulmonary disease, unspecified; I10 Essential (primary) hypertension; J43.8 Other emphysema; Z88.1 Allergy status to other antibiotic agents; F17.290 Nicotine dependence, other tobacco product, uncomplicated; Z88.0 Allergy status to penicillin; Z68.33 Body mass index [BMI] 33.0-33.9, adult; F90.9 Attention-deficit hyperactivity disorder, unspecified type; M54.9 Dorsalgia, unspecified; G47.33 Obstructive sleep apnea (adult) (pediatric); G89.29 Other chronic pain; M19.90 Unspecified osteoarthritis, unspecified site; Z79.899 Other long term (current) drug therapy; Z90.2 Acquired absence of lung [part of]; Z98.1 Arthrodesis status
CPT/HCPCS: 32551; 36415; 71045; 71046; 71250; 80048; 80053; 85025; 85610; 85730; 93005; 96374; 96375; 96376; 99285

== ENCOUNTER → 2025-03-24 | Outpatient (CLI) | payer MEDICARE ==
--- NOTE | 2025-03-24 11:53 | XR ---
EXAMINATION TYPE: XR chest 2V DATE OF EXAM: 03/24/2025 11:43 AM COMPARISON: 03/17/2025 CLINICAL INDICATION: Male, 64 years old with history of J93.9 PNEUMOTHORAX, UNSPECIFIED, , TECHNIQUE: Frontal and lateral views FINDINGS: Posterior cervical fusion hardware partially visualized. Residual subcutaneous emphysema along the up per left chest. Suspect postsurgical changes left hemithorax with associated volume loss which is sim ilar. Left-sided Port-A-Cath remains in place with ongoing [id number] left apical pneumothorax measuring 6.3 cm in the apical margin versus 8.1 cm, previously. Similar strandy atelectasis left lo wer lung with blunted costophrenic angle. Hyperinflation. IMPRESSION: 1. Postsurgical changes left hemithorax with Thoravent catheter in place and decreasing, now small-to -moderate left apical pneumothorax currently 6.3 cm versus 8.1 cm, previously. 2. Possible trace left pleural effusion remains. Strandy densities left lower lung suggesting atelect asis. Background osteopenia. [facility], , 03/24/2025 11:50 AM
== END | disposition home or self-care (01) ==
LOC: RADXRMAIN 11:24
PROVIDERS: ATTEND Hospitalist
DX: J93.9 Pneumothorax, unspecified (principal); J98.4 Other disorders of lung; Z98.890 Other specified postprocedural states
CPT/HCPCS: 71046